=== PATIENT | female | born 1975 | race Caucasian/White ===

== ENCOUNTER 2021-05-09 10:59 | Outpatient (REF) | payer OTHER, SELFPAY ==
--- NOTE | ~2021-05-09 | MM_ITS ---
EXAMINATION: MM SCREENING DIGITAL BREAST TOMOSYNTHESIS, BILATERAL CLINICAL INFORMATION: Screening. Asymptomatic. The lifetime risk of breast cancer based on the Tyrer-Cuzick Model is 18%. COMPARISON: Mammography: 05/07/2020, 01/24/2018; outside mammography 03/30/2017 ([facility]) TECHNIQUE: Digital breast tomosynthesis is performed in both the craniocaudal and mediolateral oblique views along with computer-aided detection (CAD). Synthesized 2D images are generated from the tomosynthesis. FINDINGS: There are scattered areas of fibroglandular density (ACR BI-RADS breast composition Category b). There are no significant masses, abnormal calcifications, or other abnormalities. Parenchymal pattern is similar to prior studies. No developing density. No significant changes. MM/MM tomosynthesis screening BI IMPRESSION: No mammographic evidence of malignancy. ASSESSMENT: BI-RADS 1: Negative RECOMMENDATION: Routine annual mammography screening. This patient's information was entered into a reminder system with a target due date for their next mammogram.
== END 2021-05-09 11:00 | disposition home or self-care (01) ==
LOC: HO.MAMMO 10:59
PROVIDERS: Visit Provider Internal Medicine
DX: Z12.31 Encounter for screening mammogram for malignant neoplasm of breast (principal)
CPT/HCPCS: 77063; 77067

== ENCOUNTER → 2021-12-19 10:04 | Outpatient (BNVA) | payer OTHER, SELFPAY | PROVIDERS: PCP Internal Medicine; Visit Provider Obstetrics & Gynecology | DX: Z01.419 Encounter for gynecological examination (general) (routine) without abnormal findings (principal) ==

== ENCOUNTER 2022-05-11 10:22 | Outpatient (REF) | payer OTHER, SELFPAY ==
--- NOTE | ~2022-05-11 | MM_ITS ---
EXAMINATION: MM SCREENING DIGITAL BREAST TOMOSYNTHESIS, BILATERAL CLINICAL INFORMATION: Screening. Asymptomatic. The lifetime risk of breast cancer based on the Tyrer-Cuzick Model is 11%. COMPARISON: Mammography: 05/09/2021, 05/07/2020, 01/24/2018 TECHNIQUE: Digital breast tomosynthesis is performed in both the craniocaudal and mediolateral oblique views along with computer-aided detection (CAD). Synthesized 2D images are generated from the tomosynthesis. FINDINGS: There are scattered areas of fibroglandular density (ACR BI-RADS breast composition Category b). Background fibroglandular and stromal markings are similar to prior studies. There is no interval mass or architectural abnormality or developing density. No abnormal calcifications. The axilla and skin contours are unremarkable. No significant changes. MM/MM tomosynthesis screening BI IMPRESSION: No mammographic evidence of malignancy. ASSESSMENT: BI-RADS 1: Negative RECOMMENDATION: Routine annual mammography screening. This patient's information was entered into a reminder system with a target due date for their next mammogram.
== END 2022-05-11 10:23 | disposition home or self-care (01) ==
LOC: HO.MAMMO 10:22
PROVIDERS: PCP Internal Medicine; Visit Provider Internal Medicine
DX: Z12.31 Encounter for screening mammogram for malignant neoplasm of breast (principal)
CPT/HCPCS: 77063; 77067

== ENCOUNTER → 2022-07-17 10:08 | Outpatient (BNVA) | payer OTHER, SELFPAY | PROVIDERS: PCP Internal Medicine; Visit Provider Physician Assistant | DX: Z12.11 Encounter for screening for malignant neoplasm of colon (principal) | CPT/HCPCS: 99202; 99212 ==

== ENCOUNTER 2023-04-30 10:15 | Day surgery (SDC) | payer MEDICARE, MEDICAID, SELFPAY ==
--- NOTE | 2023-01-11 08:52 | P.CONAN_ITS ---
HPI - Anesthesia Eval Consult details Narrative: 47yo F for Colonoscopy PMFSH Active Problems Active Problems: All Active Problems (Updated 01/09/23 @ 13:23 by Zina Perez, RN) Well woman exam (Acute) Encounter for screening colonoscopy (Acute) Past Medical History Medical History (Updated 01/09/23 @ 13:23 by Zina Perez, RN) Asthma Depression HTN (hypertension) Family History Family History Mother Diverticulitis large intestine HTN (hypertension) Diabetes Father HTN (hypertension) Heart disease Surgical History Surgical History History of esophagogastroduodenoscopy (EGD) History of tubal ligation Hx of section [place] teeth removed Social History Social History (Updated 07/17/22 @ 10:19 by Lorie Serrano) Household Members: Spouse and Children Alcohol intake: never Patient Tobacco Use Status: Never used Tobacco Meds Allergies Allergy/AdvReac Type Severity Reaction Status Date / Time No Known Allergies Allergy Verified 01/09/23 13:21 Home Medications Medication Instructions Recorded Confirmed Last Taken Type citalopram 10 mg tablet 10 mg PO DAILY 12/19/21 01/09/23 Unknown History clotrimazole-betamethasone 1 1 appl topical BID 12/19/21 01/09/23 Unknown History %-0.05 % topical cream metoprolol tartrate 75 mg tablet 75 mg PO DAILY 12/19/21 01/09/23 Unknown History naproxen 375 mg tablet 375 mg PO BID PRN Pain 12/19/21 01/09/23 Unknown History albuterol sulfate 90 mcg/actuation inhalation 07/17/22 07/17/22 Unknown History aerosol inhaler (ProAir HFA) fluoxetine 20 mg capsule 60 mg PO DAILY 07/17/22 01/09/23 Unknown History ibuprofen 600 mg tablet 600 mg PO TID 07/17/22 01/09/23 Unknown History losartan 50 mg tablet 50 mg PO DAILY 07/17/22 01/09/23 Unknown History mometasone-formoterol HFA 200 2 puff inhalation BID 07/17/22 01/09/23 Unknown History mcg-5 mcg/actuation aerosol inhaler (Dulera) sumatriptan succinate 100 mg tablet 100 mg PO DAILY PRN Headache 07/17/22 01/09/23 Unknown History trazodone 150 mg tablet 150 - 300 mg PO BEDTIME PRN Sleep 07/17/22 01/09/23 Unknown History benztropine 0.5 mg tablet 0.5 mg PO BID 01/09/23 01/09/23 Unknown History desvenlafaxine succinate 100 mg 200 mg PO DAILY 01/09/23 01/09/23 Unknown History tablet,extended release 24 hr gabapentin 600 mg tablet 600 mg PO TID 01/09/23 01/09/23 Unknown History rizatriptan 10 mg tablet 10 mg PO QD-BID migraine 01/09/23 01/09/23 Unknown History Exam Exam Date and Time: January 11, 2023 5319 Assessment and Plan Assessment Anesthesia Assessment: Chart Reviewed
[2023-04-26 11:32] VITALS: BMI 38.8
--- NOTE | 2023-04-30 09:43 | P.CONAN_ITS ---
FORMERLY [facility] Active Problems Active Problems: All Active Problems (Updated 04/26/23 @ 11:28 by Kathleen Yip RN) Well woman exam (Acute) Encounter for screening colonoscopy (Acute) Past Medical History Medical History Anemia Anxiety Asthma Carpal tunnel syndrome of right wrist Cough Depression HTN (hypertension) Menorrhagia Obesity, Class II, BMI 35-39.9, isolated Post-nasal drip Sleep apnea Tendonitis Uterine fibroid Family History Family History Mother Diverticulitis large intestine HTN (hypertension) Diabetes Father HTN (hypertension) Heart disease Family history of problems with anesthesia: No Surgical History Surgical History History of esophagogastroduodenoscopy (EGD) History of tubal ligation Hx of section [place] teeth removed History of Problems with Anesthesia: No Social History Social History (Updated 07/17/22 @ 10:19 by Lorie Serrano) Household Members: Spouse and Children Alcohol intake: never Patient Tobacco Use Status: Never used Tobacco Are you DNR?: No Advance Directives: No Advance Directives Information Provided: Yes Meds Allergies Allergy/AdvReac Type Severity Reaction Status Date / Time Influenza Virus Vaccines AdvReac Wheezing Verified 04/30/23 11:04 Home Medications Medication Instructions Recorded Confirmed Last Taken Type citalopram 10 mg tablet 10 mg PO DAILY 12/19/21 01/09/23 Unknown History clotrimazole-betamethasone 1 1 appl topical BID 12/19/21 01/09/23 Unknown History %-0.05 % topical cream metoprolol tartrate 75 mg tablet 75 mg PO DAILY 12/19/21 01/09/23 Unknown History naproxen 375 mg tablet 375 mg PO BID PRN Pain 12/19/21 01/09/23 Unknown History albuterol sulfate 90 mcg/actuation inhalation 07/17/22 07/17/22 Unknown History aerosol inhaler (ProAir HFA) fluoxetine 20 mg capsule 60 mg PO DAILY 07/17/22 01/09/23 Unknown History ibuprofen 600 mg tablet 600 mg PO TID 07/17/22 01/09/23 Unknown History losartan 50 mg tablet 50 mg PO DAILY 07/17/22 01/09/23 Unknown History mometasone-formoterol HFA 200 2 puff inhalation BID 07/17/22 01/09/23 Unknown History mcg-5 mcg/actuation aerosol inhaler (Dulera) sumatriptan succinate 100 mg tablet 100 mg PO DAILY PRN Headache 07/17/22 01/09/23 Unknown History trazodone 150 mg tablet 150 - 300 mg PO BEDTIME PRN Sleep 07/17/22 01/09/23 Unknown History benztropine 0.5 mg tablet 0.5 mg PO BID 01/09/23 01/09/23 Unknown History desvenlafaxine succinate 100 mg 200 mg PO DAILY 01/09/23 01/09/23 Unknown History tablet,extended release 24 hr gabapentin 600 mg tablet 600 mg PO TID 01/09/23 01/09/23 Unknown History rizatriptan 10 mg tablet 10 mg PO QD-BID migraine 01/09/23 01/09/23 Unknown History azelastine 137 mcg (0.1 %) nasal 2 spray intranasal BID 04/27/23 04/27/23 Unknown History spray aerosol ferrous sulfate 325 mg (65 mg 325 mg PO TID 04/27/23 04/27/23 Unknown History iron) tablet ipratropium bromide 21 mcg (0.03 2 spray intranasal BID 04/27/23 04/27/23 Unknown History %) nasal spray mometasone-formoterol HFA 200 2 puff inhalation BID 04/27/23 04/27/23 Unknown History mcg-5 mcg/actuation aerosol inhaler (Dulera) olanzapine 20 mg tablet 20 mg PO DAILY 04/27/23 04/27/23 Unknown History trazodone 150 mg tablet 150 mg PO BEDTIME 04/27/23 04/27/23 Unknown History Exam Exam Date and Time: April 30, 2023 0943 Height,Weight and Vital Signs: Height 5 ft 4 in Weight 102.512 kg Airway Mallampati Class: II TM Dist: >3cm Neck ROM: Full Heart: rrr Lungs: cta Assessment and Plan Assessment Anesthesia Assessment: Anesthesia Plan Discussed and Chart Reviewed Final Anesthetic Review Family History of Problems with Anesthesia: No History of Problems with Anesthesia: No NPO: Yes ASA Class: II Final Preanesthetic Review: No Changes in Pt Med Stat, Meds/Allgs Chart Reviewed and Consent Obtained/Reviewed Patient Risk: Intermediate Procedure Risk: Intermediate Anesthetic Plan Anesthetic Plan: MAC: Disposition: Standard PACU
--- NOTE | 2023-04-30 11:04 | PC.NURSE ---
report given to margarito milan rn at this time.
--- NOTE | 2023-04-30 11:21 | P.HPSUR_ITS ---
Pre-Procedural Eval Section A Date of Service: 04/30/23 The patient is an INPATIENT: No The History & Physical has been completed within 30 days and I have reviewed it.: No Section B Chief Complaint: screening Relevant Family History (Specify if Yes): No Relevant Social History: None Present Medications: see Short Stay Collaborative assessment Medical History: Significant History (Depression HTN (hypertension)) History of Previous Operations: Relevant previous surgery/procedure and date(s) (History of esophagogastroduodenoscopy (EGD) History of tubal ligation Hx of section [place] teeth removed) Allergies: Allergies Allergy/AdvReac Type Severity Reaction Status Date / Time Influenza Virus Vaccines AdvReac Wheezing Verified 04/30/23 11:04 Review of Systems Sugical H&P ROS: Negative: Constitution, Cardiovascular, Respiratory and Gastrointestinal Exam Surgical H&P Exam: Normal: Heart, Normal: Lungs, Normal: Extremities and Normal: Abdomen Plan Diagnosis/Plan: Unchanged I have reviewed the history and physical and performed a pertinent physical examination on my patient. No changes have occurred unless specified. Time Spent With Patient Time: Total time managing care of this patient today ____ minutes.
[2023-04-30 11:45] VITALS: BP 141/90; PULSE 74; RESP 16; TEMP 36.4; O2SAT 98; BMI 38.6
--- NOTE | 2023-04-30 12:11 | W.PM.OPN ---
Operative Note Operative Note Date of Service: 04/30/23 Narrative: COLONOSCOPY TILL CECUM WITH BIOPSIES Pre-op diagnosis: colon cancer screening Post-op diagnosis:? colon polyp, diverticulosis hemorrhoids Endoscopist:? Adriana Sanchez MD Anesthesia:?MAC Consent: Indications for the procedure and potential complications of bleeding, perforation, reaction to medications and missed diagnosis were discussed with the patient and informed consent was obtained. Instrument: Olympus PCF H 190 L variable stiffness pediatric colonoscope Monitoring: Vital signs and clinical assessment, intermittent blood pressure monitoring, continuous EKG monitoring, Pulse oximetry and Carbon Dioxide monitoring were done throughout the procedure. Please see anesthesia flowsheet. Colon withdrawl time was 28 minutes. Procedure: The patient was placed in the left lateral decubitis position and pre-procedure medications were administered. After a digital rectal examination of the ano-rectum, the video colonoscope was inserted into the rectum and advanced through the colon to the cecum. The colonoscope was slowly withdrawn in a retrograde panoramic fashion and the colon mucosa was carefully examined including a retroflexed view of the rectum. Findings and interventions are described below. Procedure Difficulty: colon was long and tortuous and there was some loop formation Findings: Terminal Ileum: Not evaluated Cecum: Normal Ascending Colon: Normal Transverse Colon: Normal Descending Colon: Normal Sigmoid Colon: Moderate diverticulosis Rectum: A 6-7 mm diminutive appearing polyp - removed with a cold biopsy Ano-rectum: Moderate internal hemorrhoids Colon preparation: Fair to poor despite copious irrigation Impression and Post Procedure Diagnosis: Colonoscopy Findings: One diminutive appearing polyp removed Moderate diverticulosis seen in the sigmoid colon Moderate hemorrhoids on retroflexed exam. Fair to poor despite copious irrigation Plan: Patient has an appointment on 05/17/23 in the GI Clinic with ALESSIA Quinn. Repeat Colonoscopy in 1 year due to suboptimal prep. (with 2 day prep or give Bisacodyl 2-3 tablets daily starting 5 days before colonoscopy appointment). Above findings were reviewed with the patient and colon polyps and diverticulosis handouts were given in the discharge area
[2023-04-30 13:03] VITALS: BP 127/85; PULSE 79; RESP 16; TEMP 36.2; O2SAT 97
--- NOTE | 2023-04-30 13:08 | P.CONAN_ITS ---
FORMERLY [facility], [facility]–1983 Active Problems Active Problems: All Active Problems (Updated 04/26/23 @ 11:28 by Kathleen Yip RN) Well woman exam (Acute) Encounter for screening colonoscopy (Acute) Past Medical History Medical History Anemia Anxiety Asthma Carpal tunnel syndrome of right wrist Cough Depression HTN (hypertension) Menorrhagia Obesity, Class II, BMI 35-39.9, isolated Post-nasal drip Sleep apnea Tendonitis Uterine fibroid Family History Family History Mother Diverticulitis large intestine HTN (hypertension) Diabetes Father HTN (hypertension) Heart disease Family history of problems with anesthesia: No Surgical History Surgical History History of esophagogastroduodenoscopy (EGD) History of tubal ligation Hx of section [place] teeth removed History of Problems with Anesthesia: No Social History Social History (Updated 07/17/22 @ 10:19 by Lorie Serrano) Household Members: Spouse and Children Alcohol intake: never Patient Tobacco Use Status: Never used Tobacco Meds Allergies Allergy/AdvReac Type Severity Reaction Status Date / Time Influenza Virus Vaccines AdvReac Wheezing Verified 04/30/23 11:04 Home Medications Medication Instructions Recorded Confirmed Last Taken Type citalopram 10 mg tablet 10 mg PO DAILY 12/19/21 01/09/23 Unknown History clotrimazole-betamethasone 1 1 appl topical BID 12/19/21 01/09/23 Unknown History %-0.05 % topical cream metoprolol tartrate 75 mg tablet 75 mg PO DAILY 12/19/21 01/09/23 Unknown History naproxen 375 mg tablet 375 mg PO BID PRN Pain 12/19/21 01/09/23 Unknown History albuterol sulfate 90 mcg/actuation inhalation 07/17/22 07/17/22 Unknown History aerosol inhaler (ProAir HFA) fluoxetine 20 mg capsule 60 mg PO DAILY 07/17/22 01/09/23 Unknown History ibuprofen 600 mg tablet 600 mg PO TID 07/17/22 01/09/23 Unknown History losartan 50 mg tablet 50 mg PO DAILY 07/17/22 01/09/23 Unknown History mometasone-formoterol HFA 200 2 puff inhalation BID 07/17/22 01/09/23 Unknown H istory mcg-5 mcg/actuation aerosol inhaler (Dulera) sumatriptan succinate 100 mg tablet 100 mg PO DAILY PRN Headache 07/17/22 01/09/23 Unknown History trazodone 150 mg tablet 150 - 300 mg PO BEDTIME PRN Sleep 07/17/22 01/09/23 Unknown History benztropine 0.5 mg tablet 0.5 mg PO BID 01/09/23 01/09/23 Unknown History desvenlafaxine succinate 100 mg 200 mg PO DAILY 01/09/23 01/09/23 Unknown History tablet,extended release 24 hr gabapentin 600 mg tablet 600 mg PO TID 01/09/23 01/09/23 Unknown History rizatriptan 10 mg tablet 10 mg PO QD-BID migraine 01/09/23 01/09/23 Unknown History azelastine 137 mcg (0.1 %) nasal 2 spray intranasal BID 04/27/23 04/27/23 Unknown History spray aerosol ferrous sulfate 325 mg (65 mg 325 mg PO TID 04/27/23 04/27/23 Unknown History iron) tablet ipratropium bromide 21 mcg (0.03 2 spray intranasal BID 04/27/23 04/27/23 Unknown History %) nasal spray mometasone-formoterol HFA 200 2 puff inhalation BID 04/27/23 04/27/23 Unknown History mcg-5 mcg/actuation aerosol inhaler (Dulera) olanzapine 20 mg tablet 20 mg PO DAILY 04/27/23 04/27/23 Unknown History trazodone 150 mg tablet 150 mg PO BEDTIME 04/27/23 04/27/23 Unknown History Exam Exam Date and Time: April 30, 2023 1308 Height,Weight and Vital Signs: Height 5 ft 4 in Weight 102.058 kg Last Vital Signs Temp 97.6 F 04/30/23 11:45 Pulse 74 04/30/23 11:45 Resp 16 04/30/23 11:45 BP 141/90 H 04/30/23 11:45 Pulse Ox 98 04/30/23 11:45 O2 Del Method Room Air 04/30/23 11:45 Airway Mallampati Class: II TM Dist: >3cm Neck ROM: Full Heart: rrr Lungs: cta Assessment and Plan Assessment Anesthesia Assessment: Anesthesia Plan Discussed and Chart Reviewed Final Anesthetic Review Family History of Problems with Anesthesia: No History of Problems with Anesthesia: No ASA Class: III Final Preanesthetic Review: No Changes in Pt Med Stat, Meds/Allgs Chart Reviewed and Consent Obtained/Reviewed Patient Risk: Intermediate Procedure Risk: Intermediate Anesthetic Plan Anesthetic Plan: MAC: Disposition: Standard PACU
[2023-04-30 13:18] VITALS: BP 150/102; PULSE 79; RESP 16; TEMP 36.1; O2SAT 97
== END 2023-04-30 13:46 | disposition home or self-care (01) ==
PROVIDERS: PCP Physician Assistant; Visit Provider Internal Medicine Gastroenterology
PROC: 0DJD8ZZ Inspection of Lower Intestinal Tract, Via Natural or Artificial Opening Endoscopic (ICD-10-PCS; CPT 45378; principal; 2023-04-30 11:50)
DX: Z12.11 Encounter for screening for malignant neoplasm of colon (principal); K62.1 Rectal polyp; K57.30 Diverticulosis of large intestine without perforation or abscess without bleeding; K64.8 Other hemorrhoids; I10 Essential (primary) hypertension; D64.9 Anemia, unspecified; J45.909 Unspecified asthma, uncomplicated; G47.30 Sleep apnea, unspecified; E66.9 Obesity, unspecified; Z68.38 Body mass index [BMI] 38.0-38.9, adult; Z98.51 Tubal ligation status; Z79.899 Other long term (current) drug therapy
CPT/HCPCS: 45380; 88305

== ENCOUNTER → 2023-04-30 10:15 | Outpatient (BNV) | payer MEDICARE, MEDICAID, SELFPAY | PROVIDERS: PCP Physician Assistant; Visit Provider Internal Medicine Gastroenterology | DX: Z12.11 Encounter for screening for malignant neoplasm of colon (principal); K57.30 Diverticulosis of large intestine without perforation or abscess without bleeding; K64.8 Other hemorrhoids; D12.8 Benign neoplasm of rectum | CPT/HCPCS: 45380 ==

== ENCOUNTER 2023-05-17 09:37 | Outpatient (AMB) | payer MEDICARE, MEDICAID, SELFPAY ==
[2023-05-17 09:43] VITALS: BP 136/88; PULSE 73; BMI 39.0
--- NOTE | 2023-05-17 09:43 | A.OFFVIS_ITS ---
Intake Vital Signs 05/17/23 09:43 Height 5 ft 4 in Weight 227 lb 1.218 oz BMI 39.0 BP 136/88 Blood Pressure Location Lt brachial Position Sitting Pulse 73 Intake Visit Reasons: S/P Ringling; Dr. 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 Language: Setswana Accompanied by: Self / Same As Patient Allergies Influenza Virus Vaccines Adverse Reaction (Verified 05/17/23 09:44) Wheezing Medication List - Last Reconciled 05/17/23 by Brittany Barrios PA-C albuterol sulfate 90 mcg/actuation (ProAir HFA) inhalation azelastine 2 sprays intranasal BID benztropine 0.5 mg PO BID citalopram 10 mg PO DAILY clotrimazole-betamethasone 1-0.05 % 1 appl topical BID desvenlafaxine succinate ER 200 mg PO DAILY fluoxetine 60 mg PO DAILY gabapentin 600 mg PO TID ibuprofen 600 mg PO TID ipratropium bromide 2 sprays intranasal BID losartan 50 mg PO DAILY metoprolol tartrate 75 mg PO DAILY mometasone-formoterol 200-5 mcg/actuation (Dulera) 2 puffs inhalation BID mometasone-formoterol 200-5 mcg/actuation (Dulera) 2 puffs inhalation BID naproxen 375 mg PO BID PRN olanzapine 20 mg PO DAILY rizatriptan 10 mg PO QD-BID sumatriptan succinate 100 mg PO DAILY PRN trazodone 150 mg PO BEDTIME trazodone 150 - 300 mg PO BEDTIME PRN HPI HPI Comments History of Present Illness Details A 48-year-old female follows up after recent index screening colonoscopy with polypectomy-she tolerated procedure well. She complains of chronic constipation she is taking a powder does not seem to be working well. She does have abdominal bloating and gassy, her prep for colonoscopy was not adequate. She does have discomfort from hemorrhoids from time to time and there is no bleeding We reviewed procedure report, pathology as well as recommendations. She has no nausea, vomiting hematemesis, hematochezia fever chills [facility] Medical History Obesity, Class II, BMI 35-39.9, isolated Uterine fibroid Tendonitis Post-nasal drip Menorrhagia Carpal tunnel syndrome of right wrist Anxiety Anemia Cough Sleep apnea Asthma HTN (hypertension) Depression Surgical History Hx of colonoscopy History of esophagogastroduodenoscopy (EGD) [place] teeth removed Hx of section History of tubal ligation Family History Mother Diverticulitis large intestine HTN (hypertension) Diabetes Father HTN (hypertension) Heart disease Social History Household Members: Spouse and Children Alcohol intake: never Patient Tobacco Use Status: Never used Tobacco Review of Systems Const All systems reviewed & are unremarkable except as noted in HPI and below Card Denies chest pain and Denies dyspnea Resp Denies dyspnea GI Denies abdominal pain, Denies hematochezia, Reports constipation and Denies heartburn Physical Exam Vital Signs: Last Vital Signs Pulse 73 05/17/23 09:43 BP 136/88 05/17/23 09:43 BMI result Body Mass Index 39.0 Const General: cooperative, healthy appearing, comfortable and well groomed Orientation/consciousness: patient oriented x3 Limitations: language barrier Neuro General: patient oriented x3 Extrem General: Yes full ROM Psych Appearance: grossly normal and well kempt Mental Status: mental status grossly normal Speech and movement: Normal speech and movement present and Clear speech present Affect: normal affect Attitude: cooperative Thought process: Normal thought process present Results Reviewed Results Reviewed: Impression and Post Procedure Diagnosis: Colonoscopy Findings: One diminutive appearing polyp removed Moderate diverticulosis seen in the sigmoid colon Moderate hemorrhoids on retroflexed exam. Fair to poor despite copious irrigation Plan: Patient has an appointment on 05/17/23 in the GI Clinic with ALESSIA Quinn. Repeat Colonoscopy in 1 year due to suboptimal prep. (with 2 day prep or give Bisacodyl 2-3 tablets daily starting 5 days before colonoscopy appointment). Above findings were reviewed with the patient and colon polyps and diverticulosis handouts were given in the discharge area You should undergo a colonoscopy again in 1 years since colon was not well cleaned out on recent colonoscopy. Assessment & Plan Assessment & Plan (1) Chronic constipation: Comment: Index screening colonoscopy, inadequate prep-will need repeat 1 year Consistent bowel regimen Code(s): K59.09 - Other constipation Plan: Consistent bowel regimen HFD (2) Diverticulosis: Code(s): K57.90 - Diverticulosis of intestine, part unspecified, without perforation or abscess without bleeding Plan: Diverticulosis/diverticulitis ED protocol Maintain high-fiber diet (3) Hemorrhoids: Comment: Moderate hemorrhoids Code(s): K64.9 - Unspecified hemorrhoids Plan: HFD avoid strain rectal cream surgical consult- declines Plan Repeat Colonoscopy in 1 year due to suboptimal prep. (with 2 day prep or give Bisacodyl 2-3 tablets daily starting 5 days before colonoscopy appointment). Medications: New methylcellulose (laxative) (Citrucel) 500 mg PO TID 90 tabs 5RF 30 days docusate sodium (Colace) 200 mg (2 x 100 mg) PO BEDTIME 60 caps 5RF bisacodyl (Dulcolax (bisacodyl)) 10 mg DC DAILY PRN 20 ea 2RF constipation polyethylene glycol 3350 (Miralax) Take as directed by mouth the day before your procedure. 238 grams PO ONCE PRN 238 grams 0RF laxative effect 1 day Patient Instructions: Repeat Colonoscopy in 1 year due to suboptimal prep. (with 2 day prep or give Bisacodyl 2-3 tablets daily starting 5 days before colonoscopy appointment). Diverticulosis/diverticulitis ER protocol discussed Maintain high-fiber diet literature given Rectal cream for hemorrhoids, avoid straining-offered referral for hemorrhoid consult at this time she has declined Consistent bowel regimen Colace 200 mg MiraLax 17 mg q.h.s. daily fiber supplements-she may use suppository as needed. 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
== END 2023-05-17 10:24 | disposition home or self-care (01) ==
PROVIDERS: PCP Physician Assistant; Visit Provider Physician Assistant
DX: K59.09 Other constipation (principal); K57.90 Diverticulosis of intestine, part unspecified, without perforation or abscess without bleeding; K64.9 Unspecified hemorrhoids
CPT/HCPCS: 99213

== ENCOUNTER 2023-05-17 10:14 | Outpatient (REF) | payer MEDICARE, MEDICAID, SELFPAY ==
--- NOTE | ~2023-05-17 | MM_ITS ---
EXAMINATION: MM SCREENING DIGITAL BREAST TOMOSYNTHESIS, BILATERAL CLINICAL INFORMATION: Screening. Asymptomatic. COMPARISON: Mammography: 05/11/2022, 05/09/2021, 05/07/2020, and dating back to 2017. TECHNIQUE: Digital breast tomosynthesis is performed in both the craniocaudal and mediolateral oblique views along with computer-aided detection (CAD). Synthesized 2D images are generated from the tomosynthesis. Additional left MLO was provided. FINDINGS: There are scattered areas of fibroglandular density (ACR BI-RADS breast composition Category b). There are no suspicious masses, suspicious grouped calcifications, or areas of architectural distortion. The parenchymal pattern is stable from prior exams. No skin changes. MM/MM tomosynthesis screening BI IMPRESSION: No mammographic evidence of malignancy. ASSESSMENT: BI-RADS BI-RADS 1 - Negative RECOMMENDATION: Routine annual mammography screening. 1 year F/U This examination should not preclude the clinical evaluation of a suspicious palpable abnormality. This patient's information was entered into a reminder system with a target due date for their next mammogram.
== END 2023-05-17 10:15 | disposition home or self-care (01) ==
LOC: HO.MAMMO 10:14
PROVIDERS: PCP Internal Medicine; Visit Provider Internal Medicine
DX: Z12.31 Encounter for screening mammogram for malignant neoplasm of breast (principal)
CPT/HCPCS: 77063; 77067; 99212

== ENCOUNTER → 2023-05-17 10:20 | Outpatient (BNV) | payer MEDICARE, MEDICAID, SELFPAY | PROVIDERS: PCP Internal Medicine; Visit Provider Radiology Diagnostic Radiology | DX: Z12.31 Encounter for screening mammogram for malignant neoplasm of breast (principal) | CPT/HCPCS: 77063; 77067 ==

== ENCOUNTER 2023-06-06 10:00 | Outpatient (AMB) | payer MEDICARE, MEDICAID, SELFPAY ==
[2023-06-06 10:03] VITALS: BP 132/80; BMI 39.3
--- NOTE | 2023-06-06 10:03 | MHC.OFFVIS ---
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 No complaints. Last Pap/HPV was negative in 01/25 Last Mammogram was BI-RADS 1 in 06/02 Last colonoscopy was in 05/02, the recommendation was to repeat in 1 year [facility] Medical History Obesity, Class II, BMI 35-39.9, isolated Uterine fibroid Tendonitis Post-nasal drip Menorrhagia Carpal tunnel syndrome of right wrist Anxiety Anemia Cough Sleep apnea Asthma HTN (hypertension) Depression Surgical History Hx of colonoscopy History of esophagogastroduodenoscopy (EGD) [place] teeth removed Hx of section History of tubal ligation Family History Mother Diverticulitis large intestine HTN (hypertension) Diabetes Father HTN (hypertension) Heart disease Social History Household Members: Spouse and Children Alcohol intake: never Patient Tobacco Use Status: Never used Tobacco Female Reproductive History Menstrual Age of Menarche: 10 control method: permanent sterilization Total pregnancies: 2 Full term: 2 Number of Living Children: 2 Date of last pap smear: 01/08/18 (negative) Date of Mammogram: 05/17/23 Review of Systems Const All systems reviewed & are unremarkable except as noted in HPI and below Card Reports as per HPI Resp Reports as per HPI GI Reports as per HPI and Reports no additional complaints Reports as per HPI Physical Exam Vital Signs: Last Vital Signs BP 132/80 06/06/23 10:03 BMI result Body Mass Index 39.3 Const General: cooperative, healthy appearing and comfortable Chest Chest palpation & inspection: normal inspection of the chest and normal palpation of entire chest wall Breast/axilla inspection: normal inspection of the breasts and normal inspection of the axillae Breast/axilla palpation: normal palpation of the breasts, normal palpation of the axillae and no axillary lymphadenopathy Resp Effort & Inspection: normal respiratory effort Auscultation: clear to auscultation bilaterally Percussion: percussion normal Cardio Palpation: normal PMI Rate: regular rate Rhythm: regular rhythm Heart sounds: no murmurs and no rubs Peripheral pulses: Peripheral pulses 2+ throughout GI Inspection: Yes normal to inspection Palpation (GI): Soft to palpation, nontender, no guarding, not rigid and No hepatosplenomegaly present Percussion: Yes normal to percussion Auscultation: normal bowel sounds Rectal Exam - Female: deferred General: Yes bladder normal to palpation External Female Exam: No lesion Speculum Exam - Vagina: normal appearance of the vagina, normal palpation, normal vaginal discharge and not erythematous Speculum Exam - Cervix: normal appearance of the cervix and normal palpation Bimanual exam- vagina & uterus: normal bimanual exam, normal palpation, uterine size normal, bladder normal to palpation, consistency normal and normal palpation Bimanual Exam- Adnexa, other: normal adnexae, no masses and no tenderness Assessment & Plan Assessment & Plan (1) Well woman exam: Code(s): Z01.419 - Encounter for gynecological examination (general) (routine) without abnormal findings Plan: Cotesting done. Instructions given to the patient to schedule next year screening Mammogram in 06/03. Counseled the patient about the recommended dietary allowance of 1000 mg of Calcium & 600 IU of vitamin D. The patient was instructed to perform monthly self-breast exams and to schedule an annual exam in a year; The patient scheduled for next screening colonoscopy in 05/03 All questions answered and the patient verbalized understanding. Instructed the patient to schedule annual exam in a year Coding Level of Care Code Est Pt Prev Care 40-64y(55416) Diagnoses Well woman exam Z01.419
== END 2023-06-06 10:26 | disposition home or self-care (01) ==
LOC: HO.HWS 10:00
PROVIDERS: PCP Internal Medicine; Visit Provider Obstetrics & Gynecology
DX: Z01.419 Encounter for gynecological examination (general) (routine) without abnormal findings (principal)
CPT/HCPCS: G0101; Q0091

== ENCOUNTER 2023-06-06 10:00 | Outpatient (REF) | payer MEDICARE, MEDICAID, SELFPAY ==
[2023-06-09 06:39] LABS: HPV mRNA E6/E7 rflx Not Detected (Not Detected)
== END 2023-06-06 10:01 | disposition home or self-care (01) ==
LOC: HO.LNP 10:00
PROVIDERS: PCP Internal Medicine; Visit Provider Obstetrics & Gynecology
DX: Z01.419 Encounter for gynecological examination (general) (routine) without abnormal findings (principal); Z11.51 Encounter for screening for human papillomavirus (HPV)
CPT/HCPCS: 87624; 88142; G0101

== ENCOUNTER 2024-02-20 10:08 | Outpatient (AMB) | payer OTHER, SELFPAY ==
--- NOTE | 2024-02-20 10:17 | MHC.OFFVIS ---
Intake Visit Reasons: dysuria Intake Note: New Patient presents today for initial visit to establish treatment for : Dysuria Urology Medications: none Allergies to Antibiotic: none Blood Thinner: none PVR: 0ml's Application Performance Engineer Required: Yes Application Performance Engineer Name: KYLE TANGKIARA Accompanied by: Self / Same As Patient Allergies Influenza Virus Vaccines Adverse Reaction (Verified 02/20/24 11:12) Wheezing Medication List - Last Reconciled 02/20/24 by MAYRA Gipson- albuterol sulfate 90 mcg/actuation (ProAir HFA) inhalation azelastine 2 sprays intranasal BID benztropine 0.5 mg PO BID bisacodyl (Dulcolax (bisacodyl)) 10 mg LA DAILY PRN citalopram 10 mg PO DAILY clotrimazole-betamethasone 1-0.05 % 1 appl topical BID desvenlafaxine succinate ER 200 mg PO DAILY docusate sodium (Colace) 200 mg (2 x 100 mg) PO BEDTIME estradiol 0.01%(0.1mg/gram) pea sized amount to urethra 3 times a week 30 days fluoxetine 60 mg PO DAILY gabapentin 600 mg PO TID ibuprofen 600 mg PO TID ipratropium bromide 2 sprays intranasal BID losartan 50 mg PO DAILY methylcellulose (laxative) (Citrucel) 500 mg PO TID 30 days metoprolol tartrate 75 mg PO DAILY mometasone-formoterol 200-5 mcg/actuation (Dulera) 2 puffs inhalation BID mometasone-formoterol 200-5 mcg/actuation (Dulera) 2 puffs inhalation BID naproxen 375 mg PO BID PRN olanzapine 20 mg PO DAILY polyethylene glycol 3350 (Miralax) 238 grams PO ONCE PRN 1 day rizatriptan 10 mg PO QD-BID sumatriptan succinate 100 mg PO DAILY PRN trazodone 150 mg PO BEDTIME trazodone 150 - 300 mg PO BEDTIME PRN HPI Comments Details: Gia is a very pleasant 48-year-old Slovak-speaking female patient of Dr. Romero. She has a past medical history of obesity, uterine fibroid, menorrhagia status post hysterectomy 2 years ago, carpal tunnel, anxiety, sleep apnea, asthma, hypertension, and depression. She presents to the office today as a new patient for dysuria and stress incontinence. In discussion with the patient today she reports symptoms have been present for many months. She discusses having had a hysterectomy 2 years ago for abnormal bleeding with episodes of anemia. She discusses also noting lower abdominal pressure greater on the left side than the right. She is unsure if this is related to her bladder or a sprigger issue given her history of a hysterectomy. She otherwise denies hematuria, foul smelling urine, changes to urinary stream, flank pain, fever, and or chills. In office urinalysis results reviewed with the patient today negative leukocytes negative nitrates negative microscopic hematuria. PVR 0 mL. Discussed at length potential causes for lower urinary tract symptoms patient is experiencing. Discussed obtaining retroperitoneal ultrasound for further assessment evaluation. She otherwise offers no other issues or concerns at this time. [facility] Medical History Obesity, Class II, BMI 35-39.9, isolated Uterine fibroid Tendonitis Post-nasal drip Menorrhagia Carpal tunnel syndrome of right wrist Anxiety Anemia Cough Sleep apnea Asthma HTN (hypertension) Depression Surgical History Hx of colonoscopy History of esophagogastroduodenoscopy (EGD) [place] teeth removed Hx of section History of tubal ligation Family History Mother Diverticulitis large intestine HTN (hypertension) Diabetes Father HTN (hypertension) Heart disease Social History Household Members: Spouse and Children Alcohol intake: never Patient Tobacco Use Status: Never used Tobacco Female Reproductive History Menstrual Age of Menarche: 10 Review of Systems Const Reports no additional complaints Eyes Reports no additional complaints ENT Reports no additional complaints Card Reports as per HPI Resp Reports as per HPI GI Reports no additional complaints Reports as per HPI Musc Reports as per HPI Neuro Reports as per HPI Psych Reports as per HPI Endo Reports no additional complaints Sheng/Lymph Reports no additional complaints Aller/Immun Reports no additional complaints Physical Exam Const General: cooperative, healthy appearing, comfortable, no acute distress, well developed, alert and awake Orientation/consciousness: patient oriented x3 Limitations: no limitations HEENT Head: Yes normal to inspection, Yes normocephalic and Yes atraumatic Ears: hearing grossly normal bilaterally Eyes General: appearance normal, both eyes and all related structures Neck Neck: Yes normal visual inspection and Yes trachea midline Chest Chest palpation & inspection: normal inspection of the chest Resp Effort & Inspection: normal respiratory effort and able to speak in complete sentences Cardio Rate: regular rate GI Inspection: Yes normal to inspection General: Yes no CVA tenderness Back/Spine/Pelvis Back: no CVA tenderness Skin General skin exam: no rashes or lesions noted Neuro General: patient oriented x3 Extrem General: Yes normal to inspection Psych Appearance: grossly normal and well kempt Mental Status: mental status grossly normal Speech and movement: Normal speech and movement present and Clear speech present Affect: normal affect Attitude: cooperative Thought process: Normal thought process present Thought content: Normal thought content present Insight: Fair insight present (Psych) Judgement: Fair judgement present (Psych) Office Procedures Post Void Residual Post Residual Void Post Void Residual (PVR): 0 [id number] Void Residual by ultrasound Results AMB Urinalysis, Automated UA Leukoctes 0 Ryan/uL Last Edit by [employer] on 02/20/24 10:42 UA Nitrite Negative Last Edit by [employer] on 02/20/24 10:42 UA Urobilinogen 0.2 mg/dL Last Edit by [employer] on 02/20/24 10:42 UA Protein 0 mg/dL Last Edit by [employer] on 02/20/24 10:42 UA pH 6.5 Last Edit by [employer] on 02/20/24 10:42 UA Blood 0 Reymundo/uL Last Edit by [employer] on 02/20/24 10:42 UA Specific [place] 1.010 Last Edit by [employer] on 02/20/24 10:42 UA Ketone Negative Last Edit by [employer] on 02/20/24 10:42 UA Bilirubin 0 mg/dL Last Edit by [employer] on 02/20/24 10:42 UA Glucose 0 mg/dL Last Edit by [employer] on 02/20/24 10:42 Results Reviewed Results Reviewed: Laboratory Last Values Urine pH (Auto) 6.5 02/20/24 10:23 Specific [place] (Auto) 1.010 02/20/24 10:23 Urine Protein (Auto) 0 mg/dL 02/20/24 10:23 Glucose (UA)(Auto) 0 mg/dL 02/20/24 10:23 Urine Ketones (Auto) Negative 02/20/24 10:23 Urine Blood (Auto) 0 Reymundo/uL 02/20/24 10:23 Urine Nitrite (Auto) Negative 02/20/24 10:23 Urine Bilirubin (Auto) 0 mg/dL 02/20/24 10:23 Urine Urobilinogen (Auto) 0.2 mg/dL 02/20/24 10:23 Leukocyte Esterase (Auto) 0 Ryan/uL 02/20/24 10:23 Assessment & Plan Assessment & Plan (1) Stress incontinence: Code(s): N39.3 - Stress incontinence (female) (male) Category: Medical (2) Dysuria: Code(s): R30.0 - Dysuria Category: Medical Plan In office urinalysis results reviewed with the patient today; as noted above; will send for urine culture given patient reporting dysuria. Discussed at length potential causes for lower urinary tract symptoms patient is experiencing. PVR 0 mL. Discussed possible near future in office cystoscopy, urodynamics, and or microgen for further assessment evaluation. Will obtain retroperitoneal ultrasound for further assessment evaluation. Discussed bladder triggers/irritants. Start Estrace cream as discussed and prescribed. Discussed pelvic floor therapy. Follow-up in 1-3 months with imaging to be completed prior; or sooner with any issues, concerns, and or questions. Orders: Orders AMB Urinalysis Automated Today Z13.9 - Encounter for screening, unspecified AMB Post Void Residual by ultrasound Today Z13.9 - Encounter for screening, unspecified US retroperitoneal comp Today N39.3 - Stress incontinence (female) (male), R30.0 - Dysuria Medications: New estradiol 0.01%(0.1mg/gram) pea sized amount to urethra 3 times a week 42.5 grams 2RF 30 days Patient Instructions: The patient had an opportunity to ask questions regarding the treatment plan. All questions were answered. Physical exam, labs, and imaging were discussed and reviewed in detail. As well as risks, benefits, and discussion of treatment choices. No major barriers to understanding were identified. The patient expressed understanding and agreement with the above treatment plan. The patient was made aware they should contact our office by phone for worsening of their current condition, the appearance of new symptoms, or with any questions or concerns. Compliance is encouraged with any medications and follow up testing that is ordered. It is a privilege to be allowed the opportunity to participate in? your urological care.? Again, if you have any questions or concerns If you have any questions or concerns please do not hesitate to contact me. The office is [phone]. This note is constructed using voice recognition software. While every effort has been made to ensure accuracy granite countertop installer errors may have been included. Yours sincerely, CASSANDRA Gipson Coding Level of Care Code New Pt Level 4 (10902) Diagnoses Stress incontinence N39.3 Dysuria R30.0 CPT Codes Post Residual Void - PVR CPT Code: 43375-T[place]o Void Residual by ultrasound ([id number])
== END 2024-02-20 10:56 | disposition home or self-care (01) ==
PROVIDERS: PCP Internal Medicine; Visit Provider Nurse Practitioner Family
DX: N39.3 Stress incontinence (female) (male) (principal); R30.0 Dysuria; Z13.9 Encounter for screening, unspecified
CPT/HCPCS: 99204

== ENCOUNTER 2024-02-20 10:08 | Outpatient (REF) | payer OTHER, SELFPAY | END 2024-02-20 10:09 | disposition home or self-care (01) | LOC: HO.LNP 10:08 | PROVIDERS: PCP Internal Medicine; Visit Provider Nurse Practitioner Family | DX: R30.0 Dysuria (principal); N39.3 Stress incontinence (female) (male) | CPT/HCPCS: 51798; 81003; 87086; 99202 ==

== ENCOUNTER 2024-04-21 13:04 | Outpatient (REF) | payer OTHER, SELFPAY ==
--- NOTE | ~2024-04-21 | US_ITS ---
EXAMINATION: US RETROPERITONEAL COMPLETE (RENAL) CLINICAL INFORMATION: Dysuria. COMPARISON: None available. TECHNIQUE: Real-time imaging of the kidneys and bladder. FINDINGS: RIGHT KIDNEY: 11.7 x 4.1 x 6.9 cm (SAG x AP x TRV). The kidney is normal in size, contour, and echogenicity. Renal cortical thickness is normal. No calculi or focal parenchymal lesions. No hydronephrosis. LEFT KIDNEY: 13.9 x 5.1 x 5.7 cm (SAG x AP x TRV). The kidney is normal in size, contour, and echogenicity. Renal cortical thickness is normal. No calculi or focal parenchymal lesions. No hydronephrosis. BLADDER: Well distended and normal. Bilateral ureteral jets are demonstrated. Prevoid bladder volume is 249.2 mL. Postvoid bladder volume is 5.9 mL. US/US retroperitoneal comp IMPRESSION: Normal ultrasound of the bilateral kidneys and urinary bladder. Electronically signed by: Clay Moody MD 05/15/2024 08:35 PM EDT
== END 2024-04-21 13:05 | disposition home or self-care (01) ==
LOC: HO.US 13:04
PROVIDERS: PCP Internal Medicine; Visit Provider Nurse Practitioner Family
DX: R30.0 Dysuria (principal); N39.3 Stress incontinence (female) (male)
CPT/HCPCS: 76770

== ENCOUNTER 2024-05-19 13:03 | Outpatient (REF) | payer OTHER, SELFPAY ==
[2024-05-19 17:18] LABS: Bacterial Vaginosis PCR NEGATIVE (Negative); Candida Group PCR DETECTED (Not Detect); Candida glab krusei PCR NOT DETECTED (Not Detect); Trichomonas vaginalis PCR NOT DETECTED (Not Detect)
[2024-05-19 17:47] LABS: CT PCR NOT DETECTED (Not Detect.); NG PCR NOT DETECTED (Not Detect.)
== END 2024-05-19 13:04 | disposition home or self-care (01) ==
LOC: HO.LNP 13:03
PROVIDERS: PCP Internal Medicine; Visit Provider Obstetrics & Gynecology
DX: N76.0 Acute vaginitis (principal)
CPT/HCPCS: 0352U; 87491; 87591; 99212

== ENCOUNTER 2024-05-19 13:03 | Outpatient (AMB) | payer OTHER, SELFPAY ==
--- NOTE | 2024-05-19 13:10 | A.OFFVIS_ITS ---
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 Information Interpreted: non-clinical & clinical Health Care / Medical Job Titles: Health Care / Medical Job Titles Present (Kristen GARCIA) Accompanied by: Self / Same As Patient Allergies Influenza Virus Vaccines Adverse Reaction (Verified 05/19/24 13:13) Wheezing HPI Comments Details: Presenting complaining of vulvovaginal discharge associated with vulvar itching no foul odor PFSH Medical History Obesity, Class II, BMI 35-39.9, isolated Uterine fibroid Tendonitis Post-nasal drip Menorrhagia Carpal tunnel syndrome of right wrist Anxiety Anemia Cough Sleep apnea Asthma HTN (hypertension) Depression Surgical History Hx of colonoscopy History of esophagogastroduodenoscopy (EGD) [place] teeth removed Hx of section History of tubal ligation Family History Mother Diverticulitis large intestine HTN (hypertension) Diabetes Father HTN (hypertension) Heart disease Social History Household Members: Spouse and Children Alcohol intake: never Patient Tobacco Use Status: Never used Tobacco Female Reproductive History Menstrual Age of Menarche: 10 Review of Systems Const All systems reviewed & are unremarkable except as noted in HPI and below Physical Exam Vital Signs: BMI result Body Mass Index 39.0 General: Yes no CVA tenderness External Female Exam: normal external appearance and normal appearance of the urethra Speculum Exam - Vagina: normal appearance of the vagina, normal palpation, no lesions and no masses Speculum Exam - Cervix: normal appearance of the cervix, normal palpation, no lesions, no masses and nontender Bimanual exam- vagina & uterus: normal bimanual exam, normal palpation, uterine size normal, normal palpation, uterine shape normal, No Cervical tenderness present and non-tender Bimanual Exam- Adnexa, other: normal adnexae Back/Spine/Pelvis Back: no CVA tenderness Assessment & Plan Assessment & Plan (1) Vulvovaginitis: Code(s): N76.0 - Acute vaginitis Category: Medical Plan: GC/CT, Bacterial Vaginosis panel taken, Terazol 0.8% q.h.s. for 3 days was sent to the patient's pharmacy. The patient was instructed to call if symptoms don't improve in 48 hours. Medications: New terconazole 0.8% 1 appful vaginal BEDTIME 3 days 20 grams 0RF Coding Level of Care Code Est Pt Level 3 (76139) Diagnoses Vulvovaginitis N76.0
[2024-05-19 13:11] VITALS: BMI 39.0
== END 2024-05-19 13:40 | disposition home or self-care (01) ==
PROVIDERS: PCP Internal Medicine; Visit Provider Obstetrics & Gynecology
DX: N76.0 Acute vaginitis (principal)
CPT/HCPCS: 99213

== ENCOUNTER 2024-05-22 10:01 | Outpatient (REF) | payer OTHER, SELFPAY ==
--- NOTE | ~2024-05-22 | MM_ITS ---
EXAMINATION: MM SCREENING DIGITAL BREAST TOMOSYNTHESIS, BILATERAL CLINICAL INFORMATION: Screening. Asymptomatic. COMPARISON: Mammography: Comparison is made with available priors TECHNIQUE: Digital breast mammography with tomosynthesis is performed in both the craniocaudal and mediolateral oblique views along with computer-aided detection (CAD). FINDINGS: There are scattered areas of fibroglandular density (ACR BI-RADS breast composition Category b). There are no significant masses, abnormal calcifications, or other abnormalities. MM/MM tomosynthesis screening BI IMPRESSION: No mammographic evidence of malignancy. ASSESSMENT: BI-RADS BI-RADS 1 - Negative RECOMMENDATION: Routine annual mammography screening. 1 year F/U This examination should not preclude the clinical evaluation of a suspicious palpable abnormality. This patient's information was entered into a reminder system with a target due date for their next mammogram. Electronically signed by: Edie Phillips DO 06/04/2024 07:47 PM EDT
== END 2024-05-22 10:02 | disposition home or self-care (01) ==
LOC: HO.MAMMO 10:01
PROVIDERS: PCP Internal Medicine; Visit Provider Internal Medicine
DX: Z12.31 Encounter for screening mammogram for malignant neoplasm of breast (principal)
CPT/HCPCS: 77063; 77067

== ENCOUNTER → 2024-05-22 10:30 | Outpatient (BNV) | payer OTHER, SELFPAY | PROVIDERS: PCP Internal Medicine; Visit Provider Internal Medicine | DX: Z12.31 Encounter for screening mammogram for malignant neoplasm of breast (principal) | CPT/HCPCS: 77063; 77067 ==

== ENCOUNTER 2024-06-12 07:44 | Outpatient (AMB) | payer OTHER, SELFPAY ==
--- NOTE | 2024-06-12 07:45 | A.OFFVIS_ITS ---
Intake Visit Reasons: 2m/US(set) Intake Note: Patient presents today for tele visit follow up on : Dysuria and ultrasound results Imaging Completed:04/21/24 Urology Medications: Estrace Cream Allergies to Antibiotic: none Blood Thinner: none Brazer Resistance Required: Yes Brazer Resistance Name: [id number] Accompanied by: Self / Same As Patient Allergies Influenza Virus Vaccines Adverse Reaction (Verified 06/12/24 08:13) Wheezing Medication List - Last Reconciled 06/12/24 by CASSANDRA Gipson albuterol sulfate 90 mcg/actuation (ProAir HFA) inhalation azelastine 2 sprays intranasal BID benztropine 0.5 mg PO BID bisacodyl (Dulcolax (bisacodyl)) 10 mg [place] DAILY PRN citalopram 10 mg PO DAILY clotrimazole-betamethasone 1-0.05 % 1 appl topical BID desvenlafaxine succinate ER 200 mg PO DAILY docusate sodium (Colace) 200 mg (2 x 100 mg) PO BEDTIME estradiol 0.01%(0.1mg/gram) pea sized amount to urethra 3 times a week 30 days fluoxetine 60 mg PO DAILY gabapentin 600 mg PO TID ibuprofen 600 mg PO TID ipratropium bromide 2 sprays intranasal BID losartan 50 mg PO DAILY methylcellulose (laxative) (Citrucel) 500 mg PO TID 30 days metoprolol tartrate 75 mg PO DAILY mometasone-formoterol 200-5 mcg/actuation (Dulera) 2 puffs inhalation BID naproxen 375 mg PO BID PRN olanzapine 20 mg PO DAILY polyethylene glycol 3350 (Miralax) 238 grams PO ONCE PRN 1 day rizatriptan 10 mg PO QD-BID sumatriptan succinate 100 mg PO DAILY PRN terconazole 0.8% 1 appful vaginal BEDTIME 3 days trazodone 150 mg PO BEDTIME trazodone 150 - 300 mg PO BEDTIME PRN HPI Comments Details: Gia is a very pleasant 49-year-old [place]an-speaking female patient of Dr. Romero. She has a past medical history of obesity, uterine fibroid, menorrhagia status post hysterectomy 2 years ago, carpal tunnel, anxiety, sleep apnea, asthma, hypertension, and depression. She presents to the office today for follow-up. Of note patient was seen approximately 3 months as a new patient for dysuria and stress incontinence at which time her urine was sent for urine culture and a retroperitoneal ultrasound was ordered for further assessment evaluation. These results reviewed with the patient today. The kidneys are normal in size, contour, and echogenicity. No calculi, lesions, and or hydronephrosis noted. The bladder is well distended and normal. Bladder jets are demonstrated. Pre void bladder volume is approximately 250 mL. Postvoid bladder volume is a proximally 6 mL. Urine culture 03/03 mixed bacteria. Patient reports dysuria she had been experiencing has since subsided however recently followed up with Dr. Haq be her bobj developer for vaginal itching at which time she was prescribed a cream and feels symptoms are improving. When asked she does continue to report episodes of stress incontinence however will continue with pelvic floor exercises at home as she does not wish to undergo any other treatment options at this time. She otherwise denies hematuria, foul smelling urine, changes to urinary stream, flank pain, fever, and or chills. Discussed at length potential causes for lower urinary tract symptoms patient is experiencing. She otherwise offers no other issues or concerns at this time. [facility] Medical History Obesity, Class II, BMI 35-39.9, isolated Uterine fibroid Tendonitis Post-nasal drip Menorrhagia Carpal tunnel syndrome of right wrist Anxiety Anemia Cough Sleep apnea Asthma HTN (hypertension) Depression Surgical History Hx of colonoscopy History of esophagogastroduodenoscopy (EGD) [place] teeth removed Hx of section History of tubal ligation Family History Mother Diverticulitis large intestine HTN (hypertension) Diabetes Father HTN (hypertension) Heart disease Social History (Reviewed 06/12/24 @ 07:47 by Floresita Kim Household Members: Spouse and Children Alcohol intake: never Patient Tobacco Use Status: Never used Tobacco Female Reproductive History Menstrual Age of Menarche: 10 Review of Systems Const Reports no additional complaints Eyes Reports no additional complaints ENT Reports no additional complaints Card Reports as per HPI Resp Reports as per HPI GI Reports no additional complaints Reports as per HPI Musc Reports as per HPI Neuro Reports as per HPI Psych Reports as per HPI Endo Reports no additional complaints Sheng/Lymph Reports no additional complaints Aller/Immun Reports no additional complaints Physical Exam Const General: cooperative Resp Effort & Inspection: able to speak in complete sentences Psych Speech and movement: Clear speech present Affect: normal affect Attitude: cooperative Thought content: Normal thought content present Insight: Fair insight present (Psych) Judgement: Fair judgement present (Psych) Telehealth Telehealth Telehealth Platform: [employer] Location of provider rendering services: practice address Location of patient: address on file Patient Identification confirmed using: Name, : Yes Telehealth method: voice only Patient verbally consented to treatment: Yes Patient verbally consented to billing insurance company: Yes Patient informed of any privacy concerns related to visit: Yes Minutes spent on Phone/Video with Pt.: 15 Results Reviewed Results Reviewed: Date of Service: 04/21/24 EXAMINATION: US RETROPERITONEAL COMPLETE (RENAL) FINDINGS: RIGHT KIDNEY: 11.7 x 4.1 x 6.9 cm (SAG x AP x TRV). The kidney is normal in size, contour, and echogenicity. Renal cortical thickness is normal. No calculi or focal parenchymal lesions. No hydronephrosis. LEFT KIDNEY: 13.9 x 5.1 x 5.7 cm (SAG x AP x TRV). The kidney is normal in size, contour, and echogenicity. Renal cortical thickness is normal. No calculi or focal parenchymal lesions. No hydronephrosis. BLADDER: Well distended and normal. Bilateral ureteral jets are demonstrated. Prevoid bladder volume is 249.2 mL. Postvoid bladder volume is 5.9 mL. IMPRESSION: Normal ultrasound of the bilateral kidneys and urinary bladder. Assessment & Plan Assessment & Plan (1) Stress incontinence: Code(s): N39.3 - Stress incontinence (female) (male) Category: Medical (2) Dysuria: Code(s): R30.0 - Dysuria Category: Medical Plan Recent retroperitoneal ultrasound results reviewed with the patient today; as noted above. Previous urine culture results reviewed with the patient today; as noted above. Will continue with surveillance monitoring of stress incontinence. Continue pelvic floor exercises as discussed. Continue follow-up with bobj developer as recommended. Discussed, educated, and stressed the importance of adequate hydration relation to lower urinary tract symptoms as well as overall health and well-being. Discussed bladder triggers/irritants. Follow-up in 3 months with [facility]; or sooner with any issues, concerns, and or questions. Patient Instructions: The patient had an opportunity to ask questions regarding the treatment plan. All questions were answered. Physical exam, labs, and imaging were discussed and reviewed in detail. As well as risks, benefits, and discussion of treatment choices. No major barriers to understanding were identified. The patient expressed understanding and agreement with the above treatment plan. The patient was made aware they should contact our office by phone for worsening of their current condition, the appearance of new symptoms, or with any questions or concerns. Compliance is encouraged with any medications and follow up testing that is ordered. It is a privilege to be allowed the opportunity to participate in? your urological care.? Again, if you have any questions or concerns If you have any questions or concerns please do not hesitate to contact me. The office is [phone]. This note is constructed using voice recognition software. While every effort has been made to ensure accuracy bucket wash operator errors may have been included. Yours sincerely, CASSANDRA [employer] Coding Level of Care Code Tele Est Pt Level 3 (33121) Diagnoses Stress incontinence N39.3 Dysuria R30.0 Time Spent (min) 15
== END 2024-06-12 08:41 | disposition home or self-care (01) ==
LOC: HO.HUSH 07:44
PROVIDERS: PCP Internal Medicine; Visit Provider Nurse Practitioner Family
DX: N39.3 Stress incontinence (female) (male) (principal); R30.0 Dysuria
CPT/HCPCS: 99442

== ENCOUNTER → 2024-06-12 07:44 | Outpatient (BNVA) | payer OTHER, SELFPAY | PROVIDERS: PCP Internal Medicine; Visit Provider Nurse Practitioner Family ==

== ENCOUNTER 2024-08-12 10:23 | Outpatient (AMB) | payer OTHER, SELFPAY ==
[2024-08-12 10:35] VITALS: BP 130/88; BMI 36.9
--- NOTE | 2024-08-12 10:35 | MHC.OFFVIS ---
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 Complaining of vulvovaginal itching with no vaginal discharge or foul odor Last Pap/HPV was negative in 06/02 Last Mammogram was BI-RADS 1 in 06/03 Last Colonoscopy was in 05/02, the recommendation was to repeat in 1 year for repeat to do suboptimal prep, the patient is scheduled for a preop visit in few weeks [facility] Medical History Obesity, Class II, BMI 35-39.9, isolated Uterine fibroid Tendonitis Post-nasal drip Menorrhagia Carpal tunnel syndrome of right wrist Anxiety Anemia Cough Sleep apnea Asthma HTN (hypertension) Depression Surgical History Hx of colonoscopy History of esophagogastroduodenoscopy (EGD) [place] teeth removed Hx of section History of tubal ligation Family History Mother Diverticulitis large intestine HTN (hypertension) Diabetes Father HTN (hypertension) Heart disease Social History Household Members: Spouse and Children Alcohol intake: never Patient Tobacco Use Status: Never used Tobacco Female Reproductive History Menstrual Age of Menarche: 10 control method: permanent sterilization Total pregnancies: 2 Full term: 2 Number of Living Children: 2 Date of last pap smear: 06/07/23 Date of Mammogram: 05/22/24 Review of Systems Const All systems reviewed & are unremarkable except as noted in HPI and below Card Reports as per HPI Resp Reports as per HPI GI Reports as per HPI and Reports no additional complaints Reports as per HPI Physical Exam Vital Signs: Last Vital Signs BP 130/88 08/12/24 10:35 BMI result Body Mass Index 36.9 Const General: cooperative, healthy appearing and comfortable Chest Chest palpation & inspection: normal inspection of the chest and normal palpation of entire chest wall Breast/axilla inspection: normal inspection of the breasts and normal inspection of the axillae Breast/axilla palpation: normal palpation of the breasts, normal palpation of the axillae and no axillary lymphadenopathy Resp Effort & Inspection: normal respiratory effort Auscultation: clear to auscultation bilaterally Percussion: percussion normal Cardio Palpation: normal PMI Rate: regular rate Rhythm: regular rhythm Heart sounds: no murmurs and no rubs Peripheral pulses: Peripheral pulses 2+ throughout GI Inspection: Yes normal to inspection Palpation (GI): Soft to palpation, nontender, no guarding, not rigid and No hepatosplenomegaly present Percussion: Yes normal to percussion Auscultation: normal bowel sounds Rectal Exam - Female: deferred General: Yes bladder normal to palpation External Female Exam: No lesion Speculum Exam - Vagina: normal appearance of the vagina, normal palpation, normal vaginal discharge and not erythematous Speculum Exam - Cervix: normal appearance of the cervix and normal palpation Bimanual exam- vagina & uterus: normal bimanual exam, normal palpation, uterine size normal, bladder normal to palpation, consistency normal and normal palpation Bimanual Exam- Adnexa, other: normal adnexae, no masses and no tenderness Assessment & Plan Assessment & Plan (1) Well woman exam: Code(s): Z01.419 - Encounter for gynecological examination (general) (routine) without abnormal findings Category: Medical Plan: Co testing not indicated this year. Counseled the patient about the recommended dietary allowance of 1200 mg of Calcium & 600 IU of vitamin D. Instructions given the patient to schedule next screening Mammogram in 06/03. The patient is scheduled with GI for preop visit for screening colonoscopy . The patient was instructed to perform monthly self-breast exams and schedule annual exam in a year. All questions answered and the patient verbalized understanding. (2) Vulvovaginitis: Code(s): N76.0 - Acute vaginitis Category: Medical Plan: GC/CT, Bacterial Vaginosis panel taken, Terazol 0.8% q.h.s. for 3 days was sent to the patient's pharmacy. The patient was instructed to call if symptoms don't improve in 48 hours. Medications: Refilled terconazole 0.8% 1 appful vaginal BEDTIME 3 days 20 grams 0RF Coding Level of Care Code Est Pt Prev Care 40-64y(97950) Diagnoses Well woman exam Z01.419 Vulvovaginitis N76.0
== END 2024-08-12 11:02 | disposition home or self-care (01) ==
PROVIDERS: PCP Internal Medicine; Visit Provider Obstetrics & Gynecology
DX: Z01.419 Encounter for gynecological examination (general) (routine) without abnormal findings (principal); N76.0 Acute vaginitis
CPT/HCPCS: 99396

== ENCOUNTER 2024-08-12 10:23 | Outpatient (REF) | payer OTHER, SELFPAY ==
[2024-08-13 07:19] LABS: CT PCR NOT DETECTED (Not Detect.); NG PCR NOT DETECTED (Not Detect.)
[2024-08-13 11:33] LABS: Bacterial Vaginosis PCR NEGATIVE (Negative); Candida Group PCR DETECTED (Not Detect); Candida glab krusei PCR NOT DETECTED (Not Detect); Trichomonas vaginalis PCR NOT DETECTED (Not Detect)
== END 2024-08-12 10:24 | disposition home or self-care (01) ==
LOC: HO.LNP 10:23
PROVIDERS: PCP Internal Medicine; Visit Provider Obstetrics & Gynecology
DX: Z01.419 Encounter for gynecological examination (general) (routine) without abnormal findings (principal); Z12.11 Encounter for screening for malignant neoplasm of colon; K59.09 Other constipation; N76.0 Acute vaginitis
CPT/HCPCS: 0352U; 87491; 87591; 99212; 99396

== ENCOUNTER 2024-08-12 12:27 | Outpatient (AMB) | payer OTHER, SELFPAY ==
--- NOTE | 2024-08-12 12:32 | MHC.OFFVIS ---
Vital Signs 08/12/24 12:35 Height 5 ft 4 in Weight 215 lb 2.738 oz BMI 36.9 BP 133/90 H Blood Pressure Location Rt brachial Position Sitting Pulse 71 Intake Visit Reasons: pre colonoscopy /[place] pt Intake Note: Patient in office today for colonoscopy screening. CC: Patient c/o constipation, abdominal bloating after eating, and heartburn sometimes. Patient asking for medication refill but not sure about the medications' name. Features Reporter Required: Yes Allergies Influenza Virus Vaccines Adverse Reaction (Verified 08/12/24 12:36) Wheezing HPI Comments Details: 49 y.o F with PMH obesity, HTN, CIC, here for follow up to discuss colo. Last colo 2022 was poor prep. So recommendation was to repeat a colo in a year. Rectal polyp removed was hyperplastic. Otherwise pt without any abd pain, diarrhea, blood in stool. No fam hx of CRC in FDRs. PFSH Medical History Obesity, Class II, BMI 35-39.9, isolated Uterine fibroid Tendonitis Post-nasal drip Menorrhagia Carpal tunnel syndrome of right wrist Anxiety Anemia Cough Sleep apnea Asthma HTN (hypertension) Depression Surgical History Hx of colonoscopy History of esophagogastroduodenoscopy (EGD) [place] teeth removed Hx of section History of tubal ligation Family History Mother Diverticulitis large intestine HTN (hypertension) Diabetes Father HTN (hypertension) Heart disease Social History Household Members: Spouse and Children Alcohol intake: never Patient Tobacco Use Status: Never used Tobacco Female Reproductive History Menstrual Age of Menarche: 10 Review of Systems Const All systems reviewed & are unremarkable except as noted in HPI and below Physical Exam Vital Signs: Last Vital Signs Pulse 71 08/12/24 12:35 BP 133/90 H 08/12/24 12:35 BMI result Body Mass Index 36.9 No apparent distress Nonicteric Abdomen soft, nondistended Alert and oriented x3, normal gait Assessment & Plan Assessment & Plan (1) Encounter for screening colonoscopy: Code(s): Z12.11 - Encounter for screening for malignant neoplasm of colon Category: Medical (2) Chronic constipation: Comment: Index screening colonoscopy, inadequate prep-will need repeat 1 year Consistent bowel regimen Code(s): K59.09 - Other constipation Category: Medical Plan Reviewed prep instructions extensively with the pt: -bisacodyl 2 tab BID 2 day before -CLD x1.5 days before -PEG prep one day before as per split prep instructions. -[place] to be booked on an elective basis Follow up after colo. Medications: New peg 3350-electrolytes 236-22.74-6.74 -5.86 gram (Golytely) as per split prep instructions, until fecal effluent is clear 240 mL PO Q10M 4,000 mL 0RF colonoscopy bisacodyl To start 2 days before colonoscopy 10 mg (2 x 5 mg) PO BID 2 days 8 tabs 0RF Refilled bisacodyl (Dulcolax (bisacodyl)) 10 mg AL DAILY PRN 20 ea 2RF constipation Discontinued methylcellulose (laxative) (Citrucel) Discontinued Reason: No Longer Medically Relevant 500 mg PO TID 30 days 90 tabs 5RF Coding Level of Care Code Est Pt Level 4 (81362) Diagnoses Encounter for screening colonoscopy Z12.11 Chronic constipation K59.09
[2024-08-12 12:35] VITALS: BP 133/90; PULSE 71; BMI 36.9
== END 2024-08-12 14:12 | disposition home or self-care (01) ==
LOC: HO.HGI 12:27
PROVIDERS: PCP Internal Medicine; Visit Provider Internal Medicine
DX: Z01.818 Encounter for other preprocedural examination (principal); Z12.11 Encounter for screening for malignant neoplasm of colon; K59.09 Other constipation
CPT/HCPCS: 99024

== ENCOUNTER 2024-09-15 10:28 | Outpatient (AMB) | payer OTHER, SELFPAY ==
--- NOTE | 2024-09-15 10:53 | A.OFFVIS_ITS ---
Intake Visit Reasons: 3m follow up Intake Note: Patient presents today for follow up on : Dysuria and incontinence Urology Medications: Estrace Cream Allergies to Antibiotic: none Blood Thinner: none PVR: 0ml's Claim Approver Required: Yes Claim Approver Services: Claim Approver Present Claim Approver Name: Dominic [id number] Accompanied by: Self / Same As Patient Allergies Influenza Virus Vaccines Adverse Reaction (Verified 09/15/24 11:16) Wheezing Medication List - Last Reconciled 09/15/24 by MAYRA Gipson- albuterol sulfate 90 mcg/actuation (ProAir HFA) inhalation azelastine 2 sprays intranasal BID benztropine 0.5 mg PO BID bisacodyl (Dulcolax (bisacodyl)) 10 mg MA DAILY PRN bisacodyl 10 mg (2 x 5 mg) PO BID 2 days cholecalciferol (vitamin D3) (Vitamin D3) 10 mcg PO DAILY citalopram 10 mg PO DAILY clotrimazole-betamethasone 1-0.05 % 1 appl topical BID desvenlafaxine succinate ER 200 mg PO DAILY docusate sodium (Colace) 200 mg (2 x 100 mg) PO BEDTIME estradiol 0.01%(0.1mg/gram) pea sized amount to urethra 3 times a week 30 days fluoxetine 60 mg PO DAILY furosemide 40 mg PO DAILY gabapentin 800 mg PO TID ibuprofen 600 mg PO TID ipratropium bromide 2 sprays intranasal BID lidocaine 5% patches topical losartan 50 mg PO DAILY metoprolol tartrate 100 mg PO BID mometasone-formoterol 200-5 mcg/actuation (Dulera) 2 puffs inhalation BID montelukast 10 mg PO DAILY naproxen 375 mg PO BID PRN olanzapine 20 mg PO DAILY peg 3350-electrolytes 236-22.74-6.74 -5.86 gram (Golytely) 240 mL PO Q10M polyethylene glycol 3350 (Miralax) 238 grams PO ONCE PRN 1 day rizatriptan 10 mg PO QD-BID sumatriptan succinate 100 mg PO DAILY PRN terconazole 0.8% 1 appful vaginal BEDTIME 3 days thiamine HCl (vitamin B1) 100 mg PO DAILY trazodone 150 mg PO BEDTIME HPI Comments Details: Gia is a very pleasant 49-year-old Citizen Of [place]-speaking female patient of Dr. Romero. She has a past medical history of obesity, uterine fibroid, menorrhagia status post hysterectomy 2 years ago, carpal tunnel, anxiety, sleep apnea, asthma, hypertension, and depression. She presents to the office today for follow-up. In discussion with the patient today she reports to be doing and feeling well. She reports compliance with Estrace cream as prescribed. She discusses having followed up with meat stocker for her ongoing vaginal pruritus. She discusses having been prescribed a cream as well and feels this has been helpful. She also discusses having increased her water intake and feels this has been helpful. Previous workup has included a retroperitoneal ultrasound 05/03 noting the kidneys are normal in size, contour, and echogenicity. No calculi, lesions, and or hydronephrosis noted. The bladder is well distended and normal. Bladder jets are demonstrated. Pre void bladder volume is approximately 250 mL. Postvoid bladder volume is approximately 6 mL. Urine culture 03/03 mixed bacteria. When asked she does continue to report episodes of stress incontinence however will continue with pelvic floor exercises at home as she does not wish to undergo any other treatment options at this time. She otherwise denies hematuria, foul smelling urine, changes to urinary stream, flank pain, fever, and or chills. Discussed at length potential causes for lower urinary tract symptoms patient is experiencing. In office urinalysis results reviewed with the patient today. She otherwise offers no other issues or concerns at this time. [facility] Medical History Obesity, Class II, BMI 35-39.9, isolated Uterine fibroid Tendonitis Post-nasal drip Menorrhagia Carpal tunnel syndrome of right wrist Anxiety Anemia Cough Sleep apnea Asthma HTN (hypertension) Depression Surgical History Hx of colonoscopy History of esophagogastroduodenoscopy (EGD) [place] teeth removed Hx of section History of tubal ligation Family History Mother Diverticulitis large intestine HTN (hypertension) Diabetes Father HTN (hypertension) Heart disease Social History Household Members: Spouse and Children Alcohol intake: never Patient Tobacco Use Status: Never used Tobacco Female Reproductive History Menstrual Age of Menarche: 10 Review of Systems Const Reports no additional complaints Eyes Reports no additional complaints ENT Reports no additional complaints Card Reports as per HPI Resp Reports as per HPI GI Reports no additional complaints Reports as per HPI Musc Reports as per HPI Neuro Reports as per HPI Psych Reports as per HPI Endo Reports no additional complaints Sheng/Lymph Reports no additional complaints Aller/Immun Reports no additional complaints Physical Exam Const General: cooperative, healthy appearing, comfortable, no acute distress, well developed, alert, awake and Physically active Nutritional Appearance: overweight Orientation/consciousness: patient oriented x3 Limitations: no limitations HEENT Head: Yes normal to inspection, Yes normocephalic and Yes atraumatic Ears: hearing grossly normal bilaterally Eyes General: appearance normal, both eyes and all related structures Neck Neck: Yes normal visual inspection and Yes trachea midline Chest Chest palpation & inspection: normal inspection of the chest Resp Effort & Inspection: able to speak in complete sentences Cardio Rate: regular rate GI Inspection: Yes normal to inspection General: Yes no CVA tenderness Back/Spine/Pelvis Back: no CVA tenderness Skin General skin exam: no rashes or lesions noted Neuro General: patient oriented x3 Extrem General: Yes normal to inspection Psych Appearance: grossly normal and well kempt Mental Status: mental status grossly normal Speech and movement: Clear speech present Affect: normal affect Attitude: cooperative Thought process: Normal thought process present Thought content: Normal thought content present Insight: Fair insight present (Psych) Judgement: Fair judgement present (Psych) Office Procedures Post Void Residual Post Residual Void Post Void Residual (PVR): 0 [id number]-[id number] Void Residual by ultrasound Results AMB Urinalysis, Automated UA Leukoctes 0 Ryan/uL Last Edit by Floresita White on 09/15/24 13:41 UA Nitrite Last Edit by Floresita White on 09/15/24 13:41 UA Urobilinogen 0.2 mg/dL Last Edit by Floresita White on 09/15/24 13:41 UA Protein 0 mg/dL Last Edit by Floresita Joiserge on 09/15/24 13:41 UA pH 6.5 Last Edit by Floresita White on 09/15/24 13:41 UA Blood 0 Reymundo/uL Last Edit by Floresita White on 09/15/24 13:41 UA Specific Energy 1.015 Last Edit by Floresita White on 09/15/24 13:41 UA Ketone Negative Last Edit by Floresita White on 09/15/24 13:41 UA Bilirubin 0 mg/dL Last Edit by Floresita White on 09/15/24 13:41 UA Glucose 0 mg/dL Last Edit by Floresita White on 09/15/24 13:41 Results Reviewed Results Reviewed: Laboratory Last Values Urine pH (Auto) 6.5 09/15/24 13:39 Specific Energy (Auto) 1.015 09/15/24 13:39 Urine Protein (Auto) 0 mg/dL 09/15/24 13:39 Glucose (UA)(Auto) 0 mg/dL 09/15/24 13:39 Urine Ketones (Auto) Negative 09/15/24 13:39 Urine Blood (Auto) 0 Reymundo/uL 09/15/24 13:39 Urine Bilirubin (Auto) 0 mg/dL 09/15/24 13:39 Urine Urobilinogen (Auto) 0.2 mg/dL 09/15/24 13:39 Leukocyte Esterase (Auto) 0 Ryan/uL 09/15/24 13:39 Assessment & Plan Assessment & Plan (1) Stress incontinence: Code(s): N39.3 - Stress incontinence (female) (male) Category: Medical (2) Dysuria: Code(s): R30.0 - Dysuria Category: Medical Plan In office urinalysis results reviewed with the patient today; as noted above. Patient currently denies any bothersome urinary issues or concerns. She will continue with pelvic floor exercises at home as discussed. We discussed further treatment options of stress incontinence and risks and benefits of these treatment options. Will continue with surveillance monitoring at this time. She reports be happy with current voiding parameters. Continue follow-up with meat stocker as recommended. Discussed, educated, and stressed the importance of adequate hydration relation to lower urinary tract symptoms as well as overall health and well-being. Discussed bladder triggers/irritants. Continue Estrace cream as prescribed; refill provided Follow-up in 6 months with PVR; or sooner with any issues, concerns, and or questions. Orders: Orders AMB Post Void Residual by ultrasound Today N39.3 - Stress incontinence (female) (male) AMB Urinalysis Automated Today Z13.9 - Encounter for screening, unspecified Medications: Changed From estradiol 0.01%(0.1mg/gram) pea sized amount to urethra 3 times a week 30 days 42.5 grams 2RF To estradiol 0.01%(0.1mg/gram) pea sized amount to urethra 3 times a week 42.5 grams 2RF 90 days Patient Instructions: The patient had an opportunity to ask questions regarding the treatment plan. All questions were answered. Physical exam, labs, and imaging were discussed and reviewed in detail. As well as risks, benefits, and discussion of treatment choices. No major barriers to understanding were identified. The patient expressed understanding and agreement with the above treatment plan. The patient was made aware they should contact our office by phone for worsening of their current condition, the appearance of new symptoms, or with any questions or concerns. Compliance is encouraged with any medications and follow up testing that is ordered. It is a privilege to be allowed the opportunity to participate in? your urological care.? Again, if you have any questions or concerns If you have any questions or concerns please do not hesitate to contact me. The office is [phone]. This note is constructed using voice recognition software. While every effort has been made to ensure accuracy project scientist errors may have been included. Yours sincerely, CASSANDRA Gipson Coding Level of Care Code Est Pt Level 3 (74779) Diagnoses Stress incontinence N39.3 Dysuria R30.0 CPT Codes Post Residual Void - PVR CPT Code: 54446-Tfcn Void Residual by ultrasound ([id number])
== END 2024-09-15 11:16 | disposition home or self-care (01) ==
PROVIDERS: PCP Internal Medicine; Visit Provider Nurse Practitioner Family
DX: N39.3 Stress incontinence (female) (male) (principal); R30.0 Dysuria; Z13.9 Encounter for screening, unspecified
CPT/HCPCS: 99213

== ENCOUNTER → 2024-09-15 10:28 | Outpatient (BNVA) | payer OTHER, SELFPAY | PROVIDERS: PCP Internal Medicine; Visit Provider Nurse Practitioner Family | DX: N39.3 Stress incontinence (female) (male) (principal); R30.0 Dysuria | CPT/HCPCS: 51798; 81003; 99212 ==

== ENCOUNTER 2025-01-29 11:11 | Day surgery (SDC) | payer OTHER, SELFPAY ==
[2025-01-27 12:30] VITALS: BMI 36.9
--- OUTSIDE RECORDS SUMMARY | 2025-01-28 14:58 | XMS_ITS ---
[facility] Address [address] [place] [address] Care Team Providers Care Board Machine Set Up Operator Name Role Phone Danny Romero MD Primary Care Provider Farzana Walton [phone] REASON FOR VISIT NS 12/24 Encounters Encounter Location Date Provider Diagnosis [facility] [address] [place] [address] 12/24/2024 Farzana Pruett Plan Of Treatment Next Appt Details Provider Name:Farzana Pruett , 03/24/2025 01:00:00 PM, [facility] [address], [place], [address], Progress Notes * MERT ZulyaDOB:10/1974 (49 yo F)Acc No.[id number]:12/24/2024 Patient:?ROLAJoi Billingsleyromi da :1975???Age:49 Y???Sex:Female Address:[address] [place] [address], [address] * true * Date:? Generated for Maria Gi nidia/Ayden/eTransmitting on:?01/28/2025 02:58 PM EDT
--- OUTSIDE RECORDS SUMMARY | 2025-01-28 14:59 | XMS_ITS ---
[facility] Jeremy [facility]by [place] Address [address] [place] [address] Care Team Providers Care Tetryl Dissolver Operator Name Role Phone Danny Romero MD Primary Care Provider Farzana Walton Unavailable [phone] Medications Medication SIG (Take, Route, Fr equency, [...] Negative Encounters Encounter Location Date Provider Diagnosis [facility] [address] [place] [address] 12/24/2024 Farzana Pruett Plan Of Treatment Next Appt Details Provider Name:Farzana Pruett , 03/24/2025 01:00:00 PM, [address] [place], [address], Progress Notes * Hitesh MIRB:10/1974 (49 yo F)Acc No.[id number]:12/24/2024 Progress Notes Patient:Noelle VALENTINE Provider:?Farzana Pruett DPM :1975???Age:49 Y???Sex:Female D ate:12/24/2024 Address:[address] [place], [place] [id number] Pcp:aDnny Romero MD Subjective: * Chief Complaints: * ??? * ROS:?General/Constitutional:?Nausea?denies.?Vomiting?denies.?Hunger Thirst?denies.?Loss appetite?denies.?Chills?denies.?Fatigue?denies.?Fever?denies.?Night Sweats?denies.?Unexplained weight loss?denies.?Unexplained weight gain?denies.?HEENTM:?Dentures?denies.?Dizziness?denies.?Glasses/contacts?denies.?Retinopathy?de nies.?Blurred/double vision?denies.?TMJ?denies.?Discharge/drainage?denies.?Implants?denies.?Sore throat?denies.?Dental implants?denies.?Hard of hearing ?denies.?Difficulty chewing/swallowing/speaking?denies.?Nose bleeds?denies.?Sore mouth?denies.?Respiratory:?On Oxygen?denies.?Pneumonia/pleurisy?denies.?Bronchitis?denies.?Emphysema?denies.?C oughing?denies.?Cough blood?denies.?Shortness of breath?denies.?Wheezing?denies.?Cardiovascular:?Pacemaker?denies.?MVP?denies.?WPW?denies.?CHF?denies.?Heart attack?denies.?Septal defect?denies.?Rapid beat?denies.?Chest pain ?denies.?Atrial Fib.?denies.?Murmur/Palpitations?denies.?Gastrointestinal:?Hemorrhoids?denies.?Stomach/Abdominal pain?denies.?Dark blood stool?denies.?Irritable bowel ?denies.?Constipation?denies.?Diarrhea?denies.?Hematology:?Swelling?denies.?Clots?denies.?Varicose Veins?denies.?Bruising?denies.?Bleeding problem?denies.?Genitourinary:?Blood urine?denies.?Frequent/Painfu/urination/bladder control?denies.?Kidney stones?denies.?Infection (UTI)?denies.?Nephropathy?denies.?sex trans dis (STD)?denies.?Prostate?denies.?Musculoskeletal:?Hammertoes?denies.?Bunions?denies.?Back Pain?denies.?Muscle Cramps/ Resting?denies.?Muscle cramps / walking?denies.?Generalized aches and pains?denies.?Weakness?denies.?Integ.:?Dilalo?denies.?Scars?denies.?Corns/calluses?denies.?Ingrown nails?denies.?Painful nails?denies.?Open Sores?denies.?Rashes?denies.?Neurologic:?Difficulty sleeping?denies.?Brain disorder?denies.?Numbness?denies.?Balance trouble?denies.?Confusion?denies.?Fainting/blackouts?denies.?Tingling?denies.?Tr emors?denies.? * Medical History:?Depression, Anxiety, Insomnia, HTN, DM, VIT D. DEF, FIBROIDS, +RF SENT TO [facility], HX SUICIDE ATTEMPT - OD 2014, GANGLION CYST R WRIST, ALLERGIC RHINITIS, ANEMIA GI AND HEME. * Surgical History:?colonoscop y 2022. * Family History:?Mother: bogdan nuñez, diagnosed with Diabetic - NIDDM, Family history of arthritis.?Father: .? * Social History:?Tobacco Use:?Tobacco use other than smoking?Are you an other tobacco user??No ?Tobacco Control (Standard)?Tobacco use:?Nonsmoker ???Drugs/Alcohol:?Drugs?Have you used drugs other than those for medical reasons in the past 12 months??No ???Miscellaneous:?Caffeine: yes. ?Children: yes. ?Marital status: . ???Drug/Alcohol:?AUDIT-C (Standard)?Did you have a drink containing alcohol in the past year??No ?Points?0 ?Interpretation?Negative * Medications:?Taking Docusate Sodium , Taking Flovent HFA , [...] Taking Chloraseptic , Taking Phenol Objective: * Vitals:? Assessment: Plan: * Treatment: * Images: * The named appointment provid er may or may not be the originator of this progress note, and it is not deemed complete until electronically signed by the appointment provider. Sign off status: Pending * Provider:?Farzana Pruett DPM Date:?2024 Generated for Girma jacob/Ayden/Reilly on:?01/28/2025 02:59 PM EDT
--- OUTSIDE RECORDS SUMMARY | 2025-01-28 14:59 | XMS_ITS | Encounter Summary ---
Author Organization [employer] Address [address] [facility] [address] [place] [address] Care Team Providers Care Regulatory Lead Name Role Phone Gabriela Blandon OD Primary Care Provider [phone] Encounter Details Date Type Department Care Team (Latest Contact Info) Description 07/04/2022 Abstract [facility] CONVERSIONS Dental, Provider, DDS Social History Tobacco Use Types Packs/Day Years Used Date Smoking Tobacco: Never Assessed Comments Unknown Sex and Gender Information Value Date Recorded Sex Assigned at Female 07/10/2022 10:30 AM EDT Legal Sex Female 10:30 AM EDT Gender Identity Female 08/21/2023 9:25 AM EST Sexual Orientation Choose not to disclose 2021 10:30 AM EDT documented as of this encounter Plan of Treatment Not on file documented as of this encounter Visit Diagnoses Not on filedocumented in this encounter Care Teams Regulatory Lead Relationship Specialty Start Date End Date Gabriela Blandon OD [address] [place] [id number] PCP - General Optometry 09/18/19 09/16/23 documented as of this encounter
--- OUTSIDE RECORDS SUMMARY | 2025-01-28 14:59 | XMS_ITS | Clinical Summary ---
Author Organization [employer] Address [address] [place] [address] Care Team Providers Care Custom Grinder Name Role Phone Unavailable Primary Care Provider Unavailabl e Allergies No known active allergies Medications Azelastine HCl 137 MCG/SPRAY solution Administer 2 sprays into each nostril in the morning. 3 Active benztropine (Cogentin) 0.5 MG tablet Take 0.5 mg by mouth with breakfast and with evening meal. 3 Active Vraylar 6 MG capsule TAKE 1 CAPSULE BY MOUTH DAILY IN THE MORNING 3 Active fluticasone (Flonase) 50 MCG/ACT nasal spray Administer 1 spray into each nostril in the morning. 3 Active gabapentin (Neurontin) 600 MG tablet Take 600 mg by mouth 3 times daily. 3 Active Caplyta 42 MG capsule Take 1 capsule by mouth in the morning. 3 Active Dulera 200-5 MCG/ACT inhaler INHALE 2 PUFFS BY MOUTH TWICE DAILY RINSE MOUTH AFTER USING. 3 Active rizatriptan (Maxalt) 10 MG tablet TAKE 1 TABLET BY MOUTH AT ONSET OF MIGRAINE. MAY REPEAT ONCE AFTER 2 HOURS IF NEEDED. DO NOT EXCEED 2 DOSES IN 24 HOURS. 3 Active traZODone (Desyrel) 150 MG tablet TAKE 2 TABLETS BY MOUTH EVERY DAY AT BEDTIME 3 Active albuterol (2.5 MG/3ML) 0.083% nebulizer solution INHALE 1 AMPULE USING A NEBULIZER EVERY 6 HOURS NEEDED FOR WHEEZING OR SHORTNESS OF BREATH Active Xarelto 20 MG tablet TAKE 1 TABLET BY MOUTH EVERY DAY WITH FOOD 4 Active oxyCODONE (Roxicodone) 5 MG immediate release tablet TAKE 1/2 TABLET BY MOUTH EVERY 6 HOURS FOR 3 DAYS NEEDED FOR PAIN 4 Active omeprazole (PriLOSEC) [address] capsule Take 40 mg by mouth Once per day. 4 Active montelukast (Singulair) 10 MG tablet Take 10 mg by mouth Once per day. Active metoprolol tartrate (Lopressor) 100 MG tablet Take 100 mg by mouth with breakfast and with evening meal. Active losartan (Cozaar) 50 MG tablet Take 50 mg by mouth Once per day. 4 Active Active Problems Problem Noted Date Diagnosed Date Dental caries on smooth surface limited to ename l 08/24/2023 Dental plaque 03/22/2023 Social History Tobacco Use Types Packs/Day Years Used Date Smoking Tobacco: Never Passive Smoke Exposure: Never Smokeless Tobacco: Never Tobacco Cessation:Counseling Given: Not Answered Alcohol Use Standard Drinks/Week Comments Never 0 (1 standard drink = 0.6 oz pur e alcohol) Comments Unknown Sex and Gender Information Value Date Recorded Sex Assigned at Female 07/10/2022 10:30 AM EDT Legal Sex Female 10:30 AM EDT Gender Identity Female 08/21/2023 9:25 AM EST Sexual Orientation Choose not to disclose 2021 10:30 AM EDT Last Filed Vital Signs Vital Sign Reading Time Taken Comments Blood Pressure 110/74 03/18/2024 3:02 PM EDT Pulse 78 03/18/2024 3:02 PM EDT Temperature - - Respiratory Rate - - Oxygen Saturation - - Inhaled Oxygen Concentration - - Weight - - Height - - Body Mass Index - - Plan of Treatment Health Maintenance Due Date Last Done Comments CT Colonography 1974 Colonoscopy 1974 Colorectal Cancer Screening 1974 Depression Screening 1974 FIT DNA/Cologuard 1974 FIT 1974 FOBT 1974 HIV Screening 1974 Lipid Panel 1974 SDOH Screening 1974 Sigmoidoscopy 1974 Disability Screening 1974 Alcohol/Substance Use Screening 1986 Family Planning (PISQ) 1989 Hepatitis C Screening 1992 DTaP/Tdap/Td Vaccines (1 - Tdap) 1993 Hepatitis B Vaccines (1 of 3 - 19+ 3-dose series) 1993 Pneumococcal Vaccine: 50+ Years (1 of 2 - PCV) 1993 Pap Smear 1995 Cervical Cancer Screening 2004 HPV/Cotest 2004 Mammogram 2014 Dental X-Ray: Full Mouth 01/23/2024 01/21/2021, 06/11 Zoster Vaccines (1 of 2) 2024 COVID-19 Vaccine ( - 2023- season) 2024 Influenza Vaccine (#1) 2024 Dental Oral Exam 09/19/2024 03/18/2024, , 07/04/2022, Additional history exists Dental Prophylaxis 09/19/2024 03/18/2024, 0 03/22/2023, 07/04/2022, Additional history exists Dental X-Ray: Bitewings 03/19/2025 03/18/20 24, 07/04/2022, 01/21/2021, Additional history exists Tobacco Screening 06/12/2025 06/12/2024 RSV Patients and Patients Aged 60 years or older (1 - 1-dose 75+ series) 2049 HIB Vaccines Aged Out No longer eligi ble based on patient's age to complete this topic HPV Vaccines Aged Out No longer eligi ble based on patient's age to complete this topic Hepatitis A Vaccines Aged Out No long er eligible based on patient's age to complete this topic IPV Vaccines Aged Out No longer eligi ble based on patient's age to complete this topic Meningococcal B Vaccine Aged Out No l onger eligible based on patient's age to complete this topic Meningococcal Vaccine Aged Out No norman christy eligible based on patient's age to complete this topic RSV under 20 months Aged Out No longe r eligible based on patient's age to complete this topic Rotavirus Vaccines Aged Out No longer eligible based on patient's age to complete this topic Procedures Procedure Name Priority Date/Time Associated Diagnosis Comments Full PROPHYLAXIS - ADULT Routine 07/09/2 024 3:00 PM EDT Dental plaque BITEWINGS - 4 RADIOGRAPHIC IMAGES Routine 03/18/2024 3:00 PM EDT Dental plaque PERIODIC ORAL EVALUATION - ESTABLISHED PATIENT Routine 03/18/2024 3:00 PM EDT INTRAORAL - COMPLETE SERIES OF RADIOGRAPHIC IMAGES Routine 01/21/2021 12:00 AM EDT from Last 3 Months or Most Recently Relevant to Health Maintenance Insurance [facility] [address] [place] [id number] [facility]
--- OUTSIDE RECORDS SUMMARY | 2025-01-28 14:59 | XMS_ITS | Clinical Summary ---
Author Organization [address] Address [address] [place] [address] Phone Care Team Providers Care Chair Spring Assembler Name Role Phone Danny Romero DO Primary Care Provider [phone] Surgical History Surgery Date Site/Laterality Comments SECTION PROCEDURE: HISTORICAL DELIVERY SECTION PROCEDURE: SECTION Medical History Medical History Date Comments Asthma DX:Asthma Depression DX:Depression Anxiety DX:Anxiety Anemia DX:Anemia HTN (hypertension) DX:HTN (hyper tension) Carpal tunnel syndrome of right wrist DX:Carpal tunnel syndrome of right wrist Severe obesity (BMI 35.0-39. 9) with comorbidity (CMS/[facility] V24, [facility] V28) 04/22/2019 DX:Severe obesi ty (BMI 35.0- 39.9) with comorbidity ([facility]); COMMENT: Hypertension Anemia DX:Anemia Depression DX:Depression Anxiety DX:Anxiety Insomnia DX:Insomnia Hypertension DX:Hypertension Vitamin D deficiency DX:Vitamin D deficiency Fibroids DX:Fibroids Allergic rhinitis DX:Allergic rh initis Anemia of unknown etiology 11/16/2017 DX:An emia of unknown etiology Suicide attempt (CMS/[facility] V24 , [facility] V28) 2014 DX:Suicide attempt ([facility]) Obesity DX:Obesity Diabetes mellitus (CMS/[facility] V 24, [facility] V28) DX:Diabetes mellitus ([facility]);COMMENT:Not on medication Family History Medical History Relation Name Comments No Known Problems Brother 1 No Known Problems Brother 2 No Known Problems Daughter Hypertension Father Cancer Father's Sister breast cance r Diabetes Mother No Known Problems Son Relation Name Status Comments Brother 1 Alive Brother 2 Alive Daughter Alive Father Alive Father's Sister Alive Mother Alive Son Alive Social History Tobacco Use Types Packs/Day Years Used Date Smoking Tobacco: Never Smokeless Tobacco: Never Alcohol Use Standard Drinks/Week Comments No 0 (1 standard drink = 0.6 oz pur e alcohol) Comments Unknown Sex and Gender Information Value Date Recorded Sex Assigned at Not on file Legal Sex Female 5:08 AM EST Gender Identity Not on file Sexual Orientation Not on file Obstetrics History Plan of Treatment Upcoming Encounters Date Type Department Care Team (Late st Contact Info) Description 05/19/2025 9:30 AM EDT Consult Bariatric Surgery - [place] [address] [place] [address] Flor Brantley PA [address] [place] [address] Health Maintenance Due Date Last Done Comments Breast Cancer Screening 1974 DTaP,Tdap,and Td Vaccines (1 - Tdap) 1993 Hepatitis B Vaccines (1 of 3 - 19+ 3-dose series) 1993 Pneumococcal Vaccine: 50+ Years (1 of 2 - PCV) 1993 Pneumococcal Vaccine: Pediatrics (0 to 5 Years) and At-Risk Patients (6 to 64 Years) (1 of 2 - PCV) 1993 Cervical Cancer Screening: P ap Smear 1995 Colorectal Cancer Screening: Colonoscopy 08/13/2022 Depression Screening 08/13/2022 HIV Screening 08/13/2022 Hepatitis C Screening 08/13/2022 Social Influencers of Health Screening 08/13/2022 Zoster Vaccines (1 of 2) 2024 COVID-19 Vaccine ( - 2023-2 5 season) 2024 Influenza Vaccine (Season Ended) 2025 Hypertension/CHF/CAD Annual BMP Blood Test 10/24/2025 10/24/2024, 07/18/2024 Cholesterol Screening (Lipid Panel) 10/24/2029 10/24/2024, 07/18/2024 HIB Vaccines Aged Out No longer eligi [...] on patient's age to complete this topic MMR Vaccines Aged Out No longer eligi ble based on patient's age to complete this topic Meningococcal ACWY Vaccine Aged Out N o longer eligible based on patient's age to complete this topic Meningococcal B Vaccine Aged Out No l onger eligible based on patient's age to complete this topic RSV Immunization Patients Under 20 months Aged Out No longer eligible b ased on patient's age to complete this topic Varicella Vaccines Aged Out No longer eligible based on patient's age to complete this topic Procedures Procedure Name Priority Date/Time Associated Diagnosis Comments URINALYSIS WITH REFLEX MICROSCOPIC Routine 11/28/2024 11:30 AM EDT UTI (urinary tract infection) Urinary frequency URINALYSIS WITH REFLEX MICROSCOPIC Routine 11/28/2024 11:30 AM EDT UTI (urinary tract infection) Urinary frequency CULTURE URINE Routine 11/28/2024 11:30 AM EDT UTI (urinary tract infection) Urinary frequency BASIC METABOLIC PANEL Routine 10/24/2024 9:07 AM EST GERD (gastroesophageal reflux disease) Foot pain CAD (coronary artery disease) HTN (hypertension) LIPID PANEL WITH REFLEX TO DIRECT LDL Routine 10/24/2024 9:07 AM EST GERD (gastroesophageal reflux disease) Foot pain CAD (coronary artery disease) HTN (hypertension) from Last 3 Months or Most Recently Relevant to Health Maintenance Results * Urinalysis with reflex microscopic (11/28/2024 11:30 AM EDT) Specific [place] Urine 1.014 1.003 - 1.030 LAB URINALYSIS - AUTOMATED METHOD 11/28/2024 3:19 PM [facility] pH, Urine 7.5 5.0 - 8.0 pH LAB URINALYSIS - AUTOMATED METHOD 11/28/2024 3:19 PM [facility] Leukocytes, Urine Negative Negative LAB URINALYSIS - AUTOMATED METHOD 11/28/2024 3:19 PM EDT [facility] Nitrite, Urine Negative Negative LAB URINALYSIS - AUTOMATED METHOD 11/28/2024 3:19 PM EDT [facility] Protein, Urine Negative <=Trace mg/dL LAB URINALYSIS - AUTOMATED METHOD 11/28/2024 3:19 PM EDT [facility] Glucose, Urine Negative Negative mg/dL LAB URINALYSIS - AUTOMATED METHOD 11/28/2024 3:19 PM EDT [facility] Ketones, Urine Negative Negative mg/dL LAB URINALYSIS - AUTOMATED METHOD 11/28/2024 3:19 PM [facility] Urobilinogen, Urine 0.2 0.2 - 1.0 mg/dL LAB URINALYSIS - AUTOMATED METHOD [facility] Bilirubin, Urine Negative Negative LAB URINALYSIS - AUTOMATED METHOD 11/28/2024 3:19 PM EDT [facility] Blood, Urine Negative Negative LAB URINALYSIS - AUTOMATED METHOD 11/28/2024 3:19 PM T [facility] Urine Urine specimen obtained by clean catch procedure / Unknown Non-blood Collection / Unknown 11/28/2024 11:30 AM EDT 11/28/2024 11:30 AM EDT us Arroyo Alexander STORE PERSON LAB URINE ORDERABLES Final Resul t [facility] [address] [place] [address], * Culture urine (11/28/2024 11:30 AM EDT) Culture, Urine No growth 11/29/2024 12:58 PM EDT [facility] Urine Urine specimen from urethra / Unknown Non-blood Collection / Unknown 11/28/2024 11:30 AM EDT 11/28/2024 11:30 AM EDT us Dina Alexander STORE PERSON LAB MICROBIOLOGY - GENERAL ORDER HOLLY Final Result [facility] [address] [place] [address], [place] [phone] * (ABNORMAL) Lipid panel with reflex to direct LDL (10/24/2024 9:07 AM EST) Cholesterol 201(H) 0 - 200 mg/dL LAB CHEMISTRY METHOD 10/24/2024 11:25 AM EST [facility] Triglycerides 177(H) 0 - 150 mg/dL LAB CHEMISTRY METHOD 10/24/2024 11:25 AM EST [facility] HDL 68 >=40 mg/dL LAB CHEMISTRY METHOD 10/24/2024 11:25 AM EST [facility] LDL Calculated 98 0 - 100 mg/dL LAB CHEMISTRY METHOD 10/24/2024 11:25 AM EST [facility] VLDL Cholesterol Brown 35.4 mg/dL LAB CHEMISTRY METHOD 10/24/2024 11:25 AM EST [facility] Non HDL Chol. (LDL+VLDL) 133 <145 mg/dL LAB CHEMISTRY METHOD 10/24/2024 11:25 AM EST [facility] Chol/HDL Ratio 3.0 0.0 - 4.4 LAB CHEMISTRY METHOD 10/24/2024 11:25 AM EST [facility] Blood Venous blood specimen / Unknown Venipuncture / Unknown 10/24/2024 9:07 AM EST 10/24/2024 9:07 AM EST us Arroyo Alexander STORE PERSON LAB BLOOD ORDERABLES Final Resul t [facility] [address] [place] [address], [place] [phone] * Basic metabolic panel (10/24/2024 9:07 AM EST) Sodium 139 133 - 145 mmol/L LAB CHEMISTRY METHOD 10/24/2024 11:25 AM [facility] Potassium 4.1 3.5 - 5.5 mmol/L LAB CHEMISTRY METHOD 10/24/2024 11:25 AM [facility] Chloride 106 96 - 110 mmol/L LAB CHEMISTRY METHOD 10/24/2024 11:25 AM [facility] CO2 28 21 - 32 mmol/L LAB CHEMISTRY METHOD 10/24/2024 11:25 AM [facility] Anion Gap 5 3 - 11 LAB CHEMISTRY METHOD 10/24/2024 11:25 AM [facility] Glucose 99 70 - 100 mg/dL LAB CHEMISTRY METHOD 10/24/2024 11:25 AM [facility] BUN 18 5 - 25 mg/dL LAB CHEMISTRY METHOD 10/24/2024 11:25 AM [facility] Creatinine 0.73 0.50 - 1.10 mg/dL LAB CHEMISTRY METHOD 10/24/2024 11:25 AM [facility] eGFR 100 >=60 mL/min/1. 73m2 LAB CHEMISTRY METHOD 10/24/2024 11:25 AM [facility] Comment:Calculation based on the??Chronic Kidney Disease Epidemiology Collaboration (CKD-EPI) equation refit??without adjustment for race. BUN/Creatinine Ratio 24.7 LAB CHEMISTRY METHOD 10/24/2024 11:25 AM [facility] Calcium 9.8 8.5 - 10.5 mg/dL LAB CHEMISTRY METHOD 10/24/2024 11:25 AM [facility] Blood Venous blood specimen / Unknown Venipuncture / Unknown 10/24/2024 9:07 AM EST 10/24/2024 9:07 AM EST us Arroyo Alexander STORE PERSON LAB BLOOD ORDERABLES Final Resul t [facility] [address] [place] [address], from Last 3 Months or Most Recently Relevant to Health Maintenance Insurance [facility] Member Subscriber Plan / Payer (Ef fective 2023-Present) Name:Gia Persaud Relation to Subscriber:Self Name:Gia Persaud Payer ID:[id number] Group ID:[id number] Type:Not on file Address: [place] [address] [place] [id number] Care Teams Chair Spring Assembler Relationship Specialty Start Date End Date Danny Romero DO [address] [place] [phone] PCP - General Internal Medicine 12/25/18
--- OUTSIDE RECORDS SUMMARY | 2025-01-28 14:59 | XMS_ITS | Encounter Summary ---
Author Organization [employer] Address [address] [place] [address] Care Team Providers Care Superintendent Quarry Name Role Phone Gabriela Blandon OD Primary Care Provider [phone] Encounter Details Date Type Department Care Team (Latest Contact Info) Description 01/21/2021 Abstract [facility] CONVERSIONS Dental, Provider, DDS Social [...] on filedocumented in this encounter Care Teams Superintendent Quarry Relationship Specialty Start Date End Date Gabriela Blandon OD [address] [place] [id number] PCP - General Optometry 09/18/19 09/16/23 documented as of this encounter
--- OUTSIDE RECORDS SUMMARY | 2025-01-28 14:59 | XMS_ITS | Clinical Summary ---
Author Organization [facility] Address [address] [place] [address] Care Team Providers Care Soaker Name Role Phone Danny Romero DO Primary Care Provider [phone] Allergies No known active allergies Medications Medication Sig Dispensed Refills Start Date End Date Status naproxen (NAPROSYN) 375 MG tablet Take 375 mg by mouth 2 (two) times a day with meals. 0 Active metoprolol succinate (TOPROL-XL) 24 hr tablet 50 mg Take 50 mg by mouth daily. 0 Active ARIPiprazole (ABILIFY) 20 MG tablet TAKE 1 TABLET EVERY MORNING 1 11/21/2017 Active benztropine (COGENTIN) 1 MG tablet TAKE 1 TABLET TWICE DAILY 1 11/21/2017 Active buPROPion (WELLBUTRIN XL) 300 MG 24 hr tablet TAKE ONE TABLET EVERY MORNING 1 09/20/2017 Active OLANZapine (ZYPREXA) 10 MG tablet TAKE 1 TABLET AT BEDTIME 1 11/21/2017 Active QUEtiapine (SEROQUEL) 400 MG tablet TAKE 1 TABLET EVERY EVENING AT 7pm 1 11/21/2017 Active traZODone (DESYREL) 150 MG tablet Take 300 mg by mouth every night at bedtime. 1 11/21/2017 Active FLUoxetine (PROZAC) 40 MG capsule Take 80 mg by mouth every morning. 2 12/19/2017 Active LATUDA 60 MG TABS Take 1 tablet by mouth every morning with breakfast. 0 12/19/2017 Active PROAIR HFA 108 (90 Base) MCG/ACT inhaler INHALE 1 PUFF FOUR TIMES DAILY DIRECTED 2 06/21/2018 Active tranexamic acid (LYSTEDA) 650 MG tablet Take 1,300 mg by mouth 3 (three) times a day. 2 10/10/2018 Active gabapentin (NEURONTIN) 600 MG tablet 0 08/22/2019 Active furosemide (LASIX) 20 MG tablet Take 20 mg by mouth daily. 3 07/03/2019 Active VRAYLAR 3 MG CAPS 0 07/03/2019 Active ferrous sulfate 325 (65 FE) MG tablet Take 1 tablet (325 mg total) by mouth 2 (two) times a day. 60 tablet 11 02/25/2020 Active Active Problems Problem Noted Date Diagnosed Date Iron deficiency anemia due to chronic blood loss 02/25/2020 Menorrhagia with irregular cycle 02/25/2020 Anemia of unknown etiology 11/16/2017 Family History Medical History Relation Name Comments No Sig Med Hx Brother 1 No Sig Med Hx Brother 2 No Sig Med Hx Daughter Hypertension Father Diabetes Mother Cancer Paternal Aunt breast cancer No Sig Med Hx Son Relation Name Status Comments Brother 1 Alive Brother 2 Alive Daughter Alive Father Alive Mother Alive Paternal Aunt Alive Son Alive Social History Tobacco Use Types Packs/Day Years Used Date Smoking Tobacco: Never Smokeless Tobacco: Never Alcohol Use Standard Drinks/Week Comments No 0 (1 standard drink = 0.6 oz pur e alcohol) Never used Sex and Gender Information Value Date Recorded Sex Assigned at Not on file Gender Identity Not on file Sexual Orientation Not on file Last Filed Vital Signs Vital Sign Reading Time Taken Comments Blood Pressure 120/82 02/25/2020 11:18 AM EDT Pulse 93 02/25/2020 11:18 AM EDT Temperature 36.9 ??C (98.4 ??F) 02/25/2020 11:18 AM E DT Respiratory Rate - - Oxygen Saturation 98% 06/26/2018 1:39 PM EDT Inhaled Oxygen Concentration - - Weight 101.6 kg (224 lb) 02/25/2020 11:18 AM EDT Height 162.6 cm (5' 4 ) 02/25/2020 11:18 AM EDT Body Mass Index 38.45 02/25/2020 11:18 AM EDT Plan of Treatment Health Maintenance Due Date Last Done Comments Hepatitis B Vaccines (1 of 3 - 3-dose series) 1974 Hepatitis C Screening 1974 COVID-19 Vaccine (#1) 1974 Pneumococcal Vaccine (1 of 2 - PCV) 1980 Depression Screening 1986 Preventative Health Evaluation 1992 DTap / Tdap / Td (1 - Tdap) 1993 Cervical Cancer Screening (P ap Smear) 1995 Colon Cancer Screening (Colonoscopy) 2019 Breast Cancer Screening (Mammogram) 2024 Shingrix-Zoster Vaccine (1 of 2) 2024 Influenza Vaccine (#1) 2024 RSV Ped < 20 months Aged Out No longe r eligible based on patient's age to complete this topic Care Teams Soaker Relationship Specialty Start Date End Date Danny Romero DO [address] [place] [id number] PCP - General Internal Medicine 11/16/17
--- OUTSIDE RECORDS SUMMARY | 2025-01-28 14:59 | XMS_ITS | Data Portability ---
Author Organization [place] - [facility], Allergy Address [address] [address] Care Team Providers Care Webfocus Developer Name Role Phone ELIUD KHALIL Primary Care Provider ELIUD KHALIL Referring Provider Assessment Encounter Date Assessment Date Assessment LastModified by Organization Details LastModified Time 12/09/2024 12/09/2024 Audiometric testing obtained with normal hearing levels identified. She also describes itchy ears. Fortunately her examination was benign with no evidence of infection at this time. She may benefit from intermittent use of Derm otic dplosky Not available 12/09/2024 16:35:45 Plan of Treatment Reminders Order Date Submit Date Provider Last Modified By Organization Details Last Modified Time Details Appointments None recorded. Lab None recorded. Referral None recorded. Procedures None recorded. Surgeries None recorded. Imaging None recorded. Medication Orders DermOtic Oil 0.01 % ear drops 2024 025 [facility]/Ph[facility] #[id number], [address] [place], [address], 16:34:40 Patient TargetsNo targets recorded. Patient InstructionsNo instructions recorded. Reason for Referral None Reported. Results Created Date Observation Date Name Description Value Unit Range Abnormal Flag Note LastModifiedBy Organization Detail LastModifiedTime 12/10/19 25 audio gram No observ ation record ed. BARCODE Not Available 2024 16:49:28 Result Notes None recorded. Problems Name Problem SNOMED Code Status Onset Date Resolution Date Notes Provider Name and Address Organization Details Recorded Time Dysphagia 22984751 Active 2022 Dysphagi a, unspecif ied; Note: Date Diagnose d: 3 4:11 PM (R13.10) Not Available [facility] 4 03:20:12 Bilateral diffuse otitis externa [id number] 9102 Active 2022 Diffuse otitis externa, bilatera l; Note: Date Diagnose d: 3 4:11 PM (H60.313 ) Not Available [facility] 4 03:20:13 Cough 17211054 Active 2022 Cough, unspecif ied; Note: Date Diagnose d: 3 4:11 PM (R05.9) Not Available [facility] 4 03:20:12 Abnormal auditory perceptio n 14765372 Active 2024 Mercedes corbin [place] - [facility] 5 16:07:24 Chronic otitis externa 56956388 Active 2024 MARCIA GONZALES MD [address] [place] [address] [place], [address] [facility] [place] - [facility] 5 16:33:38 Problem Notes None recorded. Procedures Surgical History Date Name Laterality Status Provider Name and Address Organization Details Recorded Time 12/09/2024 Comp Audio with Tymps - 48177 & 20809 completed Mercedes Mc [place] - [facility] 12/09/2024 16:07:17 Imaging Results Imaging Date Name Status LastModified by Organiz ation Details LastModified Time 12/09/2024 audiogram completed BARCODE Information no t available 12/09/2024 16:49:28 Procedure Notes None recorded. Medical Equipment None Reported. Allergies No known drug allergies Medications Name Sig Start Date Stop Date Status Note LastModified by Organization Details LastModified Time losartan 50 mg tablet TAKE 1 TABLET BY MOUTH EVERY DAY 12/09 completed Not Available Not Available Not Available furosemid e 40 mg tablet TAKE 1 TABLET BY MOUTH EVERY DAY 12/09 completed Not Available Not Available Not Available gabapenti n 600 mg tablet TAKE 1 TABLET BY MOUTH THREE TIMES DAILY 12/09 completed Not Available Not Available Not Available albuterol sulfate 2.5 mg/3 mL (0.083 %) solution for nebulizat ion INHALE 1 AMPULE USING A NEBULIZE R EVERY 6 HOURS NEEDED FOR WHEEZING OR SHORTNES S OF BREATH active Not Available Not Available No t Available cetirizin e 10 mg tablet 12/09 completed Medicati on ID: [id number] B rand Name: emy hussein Send Method: E-Prescr ibed Sub s Allowed: subs OK Speci al Instruct ion: TAKE 1 TABLET BY MOUTH ONCE DAILY Me dication GenericN aquiles: cetirizi ne Not Available Not Available Not Available cefpodoxi me 200 mg tablet TAKE 1 TABLET BY MOUTH EVERY TWELVE HOURS FOR 7 DAYS 12/09 completed Not Available Not Available Not Available ibuprofen 800 mg tablet TAKE 1 TABLET BY MOUTH EVERY 8 HOURS WITH FOOD OR MILK NEEDED FOR FOOT PAIN 12/09 completed Not Available Not Available Not Available metoprolo l tartrate 100 mg tablet TAKE 1 TABLET BY MOUTH TWICE DAILY WITH FOOD 12/09 completed Not Available Not Available Not Available terconazo le 0.8 % vaginal cream INSERT 1 APPLICAT ORFUL VAGINALL Y AT BEDTIME FOR 3 DAYS 12/09 completed Not Available Not Available Not Available thiamine HCl (vitamin B1) 100 mg tablet TAKE 1 TABLET BY MOUTH EVERY DAY active Not Available Not Available No t Available omeprazol e 40 mg capsule,d elayed release TAKE 1 CAPSULE BY MOUTH EVERY DAY 12/09 completed Not Available Not Available Not Available Vitamin D3 10 mcg (400 unit) tablet TAKE 1 TABLET BY MOUTH EVERY DAY active Not Available Not Available No t Available gabapenti n 800 mg tablet TAKE 1 TABLET BY MOUTH THREE TIMES DAILY active Not Available Not Available No t Available phenazopy ridine 100 mg tablet TAKE 1 TABLET BY MOUTH THREE TIMES DAILY FOR 3 DAYS WITH FOOD 12/09 completed Not Available Not Available Not Available benzonata te 100 mg capsule TAKE 1 CAPSULE BY MOUTH THREE TIMES DAILY FOR 7 DAYS NEEDED 12/09 completed Not Available Not Available Not Available bisacodyl 10 mg rectal supposito ry UNWRAP AND INSERT 1 SUPPOSIT ORY RECTALLY DAILY NEEDED FOR CONSTIPA TION 12/09 completed Not Available Not Available Not Available trazodone 150 mg tablet TAKE 2 TABLETS BY MOUTH EVERY DAY AT BEDTIME active Not Available Not Available No t Available lidocaine 5 % topical patch APPLY 1 PATCH TOPICALL Y TO SKIN, LEAVE ON FOR 12 HOURS AND OFF FOR 12 HOURS DIRECTED active Not Available Not Available No t Available montel[address] st 10 mg tablet TAKE 1 TABLET EVERY DAY 12/09 completed Not Available Not Available Not Available bisacodyl 5 mg tablet,de layed release TAKE 2 TABLETS BY MOUTH TWICE DAILY FOR 2 DAYS. START 2 DAYS BEFORE COLONOSC OPY 12/09 completed Not Available Not Available Not Available azelastin e 137 mcg (0.1 %) nasal spray USE 2 SPRAYS IN EACH NOSTRIL EVERY DAY active Not Available Not Available No t Available ibuprofen 600 mg tablet TAKE 1 TABLET BY MOUTH EVERY 8 HOURS FOR 5 DAYS WITH FOOD OR MILK 12/09 completed Not Available Not Available Not Available estradiol 0.01% (0.1 mg/gram) vaginal cream APPLY A PEA SIZED AMOUNT TO URETHRA 3 TIMES PER WEEK active Not Available Not Available No t Available albuterol sulfate HFA 90 mcg/actua tion aerosol inhaler INHALE 1 PUFF BY MOUTH FOUR TIMES DAILY active Not Available Not Available No t Available fluticaso ne propionat e 50 mcg/actua tion nasal spray,[facility] active Medicati on ID: [id number] B rand Name: fluticas one propiona te Send Method: E-Prescr ibed Sub s Allowed: subs OK Medic ationGen ericName : fluticas one propiona te Not Available Not Available Not Available loratadin e 10 mg tablet TAKE 1 TABLET EVERY DAY active Not Available Not Available No t Available diazepam 5 mg tablet TAKE 1 TABLET BY MOUTH TWICE DAILY active Not Available Not Available No t Available oxycodone 5 mg tablet TAKE 1/2 TABLET BY MOUTH EVERY 6 HOURS FOR 3 DAYS NEEDED FOR PAIN 12/09 completed Not Available Not Available Not Available cyclobenz aprine 5 mg tablet TAKE 1 TABLET BY MOUTH AT BEDTIME FOR 7 DAYS 12/09 completed Not Available Not Available Not Available DermOtic Oil 0.01 % ear drops INSTILL 5 DROPS INTO AFFECTED EAR(S) BY OTIC ROUTE 2 TIMES PER DAY x 1 week 2024 active Not Available Not Available Not Avai lable Chlorasep tic Throat [place] 1.4 % aerosol 1 SPRAY BY MOUTH. KEEP IN PLACE FOR 15 SECONDS THEN SPIT. USE EVERY 2 HOURS NEEDED FOR SORE THROAT FOR 7 DAYS 12/09 completed Not Available Not Available Not Available peg 3350-elec trolytes 236 gram-22.7 4 gram-6.74 gram-5.86 gram solution DRINK 8 OUNCES OF LIQUID EVERY 10 MINUTES DIRECTED AFTER MIXING WITH WATER. TAKE DIRECTED PER OFFICE. TAKE UNTIL FECAL EFFLUENT IS CLEAR 12/09 completed Not Available Not Available Not Available FreeStyle Lite Strips USE DIRECTED TO TEST BLOOD SUGAR EVERY DAY active Not Available Not Available No t Available FreeStyle [place] Lite kit USE DIRECTED TO TEST BLOOD SUGAR EVERY DAY active Not Available Not Available No t Available Pristiq 100 mg tablet,ex tended release Take 1 tablet every day by oral route. active Not Available Not Available No t Available Dulera 200 mcg-5 mcg/actua tion HFA aerosol inhaler INHALE 2 PUFFS BY MOUTH TWICE DAILY, RINSE MOUTH AFTER USING., DO NOT SWALLOW active Not Available Not Available No t Available Xarelto 20 mg tablet TAKE 1 TABLET BY MOUTH EVERY DAY WITH FOOD 12/09 completed Not Available Not Available Not Available TRUEplus Lancets 33 gauge USE DIRECTED TO TEST BLOOD SUGAR EVERY DAY active Not Available Not Available No t Available Cobenfy Starter Pack 50 mg-20 mg/100 mg-20 mg capsules in a dose pack TAKE 1 CAPSULE BY MOUTH TWICE DAILY DIRECTED BY PACKAGE active Not Available Not Available No t Available Cobenfy 125 mg-30 mg capsule TAKE 1 CAPSULE BY MOUTH TWICE DAILY active Not Available Not Available No t Available Vitals Date Recorded Body height Body mass index (BMI) Body weight Provider Name and Address Organization Details Last Updated DateTime 12/09/2024 162.56 cm 35.7 kg/m2 22281.21 g BHAVIN OLIVA [place] - [facility] 12/09/2024 16:21:46 Social History None recorded. Functional Status None recorded. Mental Status None recorded. Family History Nothing Reported. Medical History No medical history recorded. Gynecological HistoryNo gynecological history recorded. Obstetrics History GPAL:G 0 P 0 0 0 0 Past Encounters Encounter ID Performer Location Encounter Start Date Encounter Closed Date Diagnosis/Indication Diagnosis SNOMED-CT Code Diagnosis ICD10 Code Diagnosis Note [id number] MARCIA GONZALES MD [facility] [address] [address] 12/09/2024 15:41:10 12/09/2024 16:37:59 Abnormal auditory perception 36432901 H93.299 Audiologic al evaluation results: Right ear: {{Normal N ormal through 2 kHz Mild M oderate Mo derately-s evere Zulema re Profoun d [facility] lly normal#}} {{hearing hearing. s loping to a mild slopi ng to a moderate s loping to moderately severe slo ping to severe slo ping to profound f lat high frequency low frequency mid frequency cookie bite murillo curve hear ing with#}} {{excellen t* good fa ir poor no measurable }} word recognitio n. Left ear: {{Normal* Normal through 2 kHz Mild M oderate Mo derately-s evere Zulema re Profoun d}} {{hearing* hearing. sloping to a mild slopi ng to a moderate s loping to moderately severe slo ping to severe slo ping to profound f lat high frequency low frequency mid frequency cookie bite murillo curve}} {{with* se nsorineura l hearing loss with condu ctive hearing loss with mixed hearing loss with}} {{excellen t* good fa ir poor no measurable }} word recognitio n. Tympanomet ry: Right Ear:{{Type A* Type A with rounded peak Type A with double peak Type As Type As with rounded peak Type Ad Type C Type C, shallow & rounded peak Type B Type B with large volume Cou ld not maintain a hermetic seal}} Left Ear:{{Type A* Type A with rounded peak Type A with double peak Type As Type As with rounded peak Type Ad Type C Type C, shallow & rounded peak Type B Type B with large volume Cou ld not maintain a hermetic seal}} Chronic ot itis externa 13185459 H60.63 Health Concerns Section Related Observation LastModified by Organization Detai ls LastModified Time None Recorded Concern Status LastModified by Organization Details LastModified Time None Recorded Advance Directives Directive None Recorded Payers Insurance Date Sequence Insurance Name Policy Number Policy Shah Covered Member ID Shah Member ID Guarantor Name 12/09/2024 1 [facility] - DOS ON OR AFTER 2022 - ONE CARE (MEDICARE REPLACEMENT/ADV ANTAGE - HMO) Gia Keating [id number] Gia Keating 12/09/2024 2 [employer] - [facility] [place] (MEDICARE REPLAC[place]/ADV ANTAGE - HMO) Gia Lukasz Keating [id number] Gia Lukasz Keating Notes Date Note Type Note Provider Name and Address Organization Details Recorded Time 12/09/2024 text/html Ipad - Spanishhearing [id number] had severe otalgia in [place] and had ear cleaningno sig hx of noise exposure additionally itchy earsno previous trial of medications PV 01/08/24 Santosh dysphagia, mod ba swallow normal. no intervention. MARCIA GONZALES MD [address] [place] [address], [address], [place] - [facility] 12/09/2024 16:35:57 OBGyn Episode No OBEpisode recorded.
--- OUTSIDE RECORDS SUMMARY | 2025-01-28 14:59 | XMS_ITS | Patient Health Record ---
Author Organization [facility] Address [address] [place] [address] Care Team Providers Care School Curriculum Developer Name Role Phone Heather TATE, Danny Primary Care Provider Farzana Walton Unavailable [phone] Reason For Referral No Information Medications Medication SIG (Take, Route, Fr equency, Duration) Notes Start Date End Date Status Flovent HFA Active Cetirizine HCl Activ e Vraylar Active Albuterol Sulfate Ac tive Gabapentin Active Cyclobenzaprine HCl Active SEROquel Active Latuda Active Chloraseptic Active Fluoxetine Active Phenol Active Omeprazole Active Docusate Sodium Acti ve Hydrocortisone Activ e Lidocaine Active Cogentin Active FreeStyle Lite Test Active OLANZapine Active ProAir HFA Active traZODone HCl Active Fluticasone Propionate Active Social History Tobacco Use: Social History Observation [...] Negative Encounters Encounter [facility] [address] [facility] [address] [place] [address] 12/17/2024 [facility] [address] [place] [address] 12/18/2024 [facility] [address] [place] [address] 12/24/2024 Farzana Pruett Plan Of Treatment Next Appt Details Provider Name:Farzana Pruett , 03/24/2025 01:00:00 PM, [address] [place], [place], [address], Insurance Providers Payer Name Payer Address Payer Phone Subscriber Number Group Number Insured Name Patient Relationship to Insured Coverage Start Date Coverage End Date [facility] [employer] Claims [address] ALESSIA Garrett [id number] Gia Eddy Self - patient is the insured Medical (General) History Medical History History ICD Code Depression Anxiety Insomnia HTN DM VIT D. DEF FIBROIDS +RF SENT TO RHEUM HX SUICIDE ATTEMPT - OD 2014 GANGLION CYST R W[facility]ST ALLERGIC RHINITIS ANEMIA GI AND HEME Surgical History Surgery Date(Month/Year) colonoscopy 2022
--- OUTSIDE RECORDS SUMMARY | 2025-01-28 14:59 | XMS_ITS ---
[facility] Address [address] [place] [address] Care Team Providers Care Correctional Counselor/Case Manager Name Role Phone Danny Romero MD Primary Care Provider Farzana Walton [phone] REASON FOR VISIT Debt Counselor Encounters Encounter Location Date Provider Diagnosis [facility] [address] [place] [address] 12/25/2024 Farzana Pruett Plan Of Treatment Next Appt Details Provider Name:Farzana Pruett , 03/24/2025 01:00:00 PM, [facility] [place], [place], [address], Progress Notes * Zuly MIRaDOB:10/1974 (49 yo F)Acc No.[id number]:12/25/2024 Patient:?Noelle MIR :1975???Age:49 Y???Sex:Female Address:[address] [place] [address], [address] * * Date:?
[2025-01-29] MEDS: Lactated Ringers 1,000 ML 80 ML IVCONT (11:56)
[2025-01-29 11:57] VITALS: BP 122/82; PULSE 84; RESP 18; TEMP 36.6; O2SAT 99; BMI 36.0
--- NOTE | 2025-01-29 12:05 | HO.ANESPROP2 ---
HPI - Anesthesia Eval Consult details Narrative: she is here for a colonoscopy. preventive procedure and she c/o constipation.htn, asthma,zaynab, obesity. [facility] Active Problems Active Problems: All Active Problems (Updated 05/19/24 @ 13:24 by Benji Haq MD) Vulvovaginitis (Acute) Stress incontinence (Acute) Dysuria (Acute) Hemorrhoids (Acute) Diverticulosis (Acute) Chronic constipation (Acute) Encounter for screening colonoscopy (Acute) Well woman exam (Acute) Past Medical History Medical History Obesity, Class II, BMI 35-39.9, isolated Uterine fibroid Tendonitis Post-nasal drip Menorrhagia Carpal tunnel syndrome of right wrist Anxiety Anemia Cough Sleep apnea Asthma HTN (hypertension) Depression Family History Family History Mother Diverticulitis large intestine HTN (hypertension) Diabetes Father HTN (hypertension) Heart disease Family history of problems with anesthesia: No Surgical History Surgical History (Updated 01/29/25 @ 12:00 by Danelle Adam RN) Hx of hysterectomy Hx of colonoscopy History of esophagogastroduodenoscopy (EGD) [place] teeth removed Hx of section History of tubal ligation History of Problems with Anesthesia: No Social History Social History Household Members: Spouse and Children Are you a primary field care manager to a significant other at home: No Do you presently have visiting nurse or other home services: No Alcohol intake: never Patient Tobacco Use Status: Never used Tobacco Have you been hit, kicked, punched, or otherwise hurt by someone within the past year? If so, by whom?: No Are you DNR?: No Advance Directives: No Advance Directives Information Provided: Yes Meds Allergies Allergy/AdvReac Type Severity Reaction Status Date / Time Influenza Virus Vaccines AdvReac Wheezing Verified 01/29/25 11:59 Active Medications: Current Medications Lactated Ringer's (Lr) 1,000 mls @ 80 mls/hr IVCONT .[id number] JOANNA Last Admin: 01/29/25 11:56 Dose: 80 mls/hr Home Medications ?Medication ?Instructions ?Recorded ?Confirmed ?Last Taken ?Type citalopram 10 mg tablet 10 mg PO DAILY 12/19/21 01/29/25 Unknown History clotrimazole-betamethasone 1 1 appl topical BID 12/19/21 01/29/25 Unknown History %-0.05 % topical cream naproxen 375 mg tablet 375 mg PO BID PRN Pain 12/19/21 01/29/25 Unknown History albuterol sulfate 90 mcg/actuation inhalation 07/17/22 09/15/24 Unknown History aerosol inhaler (ProAir HFA) fluoxetine 20 mg capsule 60 mg PO DAILY 07/17/22 01/29/25 Unknown History ibuprofen 600 mg tablet 600 mg PO TID 07/17/22 01/29/25 Unknown History losartan 50 mg tablet 50 mg PO DAILY 07/17/22 01/29/25 Unknown History sumatriptan succinate 100 mg tablet 100 mg PO DAILY PRN Headache 07/17/22 01/29/25 Unknown History benztropine 0.5 mg tablet 0.5 mg PO BID 01/09/23 01/29/25 Unknown History desvenlafaxine succinate 100 mg 200 mg PO DAILY 01/09/23 01/29/25 Unknown History tablet,extended release 24 hr rizatriptan 10 mg tablet 10 mg PO QD-BID migraine 01/09/23 01/29/25 Unknown History azelastine 137 mcg (0.1 %) nasal 2 spray intranasal BID 04/27/23 01/29/25 Unknown History spray ipratropium bromide 21 mcg (0.03 2 spray intranasal BID 04/27/23 01/29/25 Unknown History %) nasal spray mometasone-formoterol HFA 200 2 puff inhalation BID 04/27/23 01/29/25 Unknown History mcg-5 mcg/actuation aerosol inhaler (Dulera) olanzapine 20 mg tablet 20 mg PO DAILY 04/27/23 01/29/25 Unknown History trazodone 150 mg tablet 150 mg PO BEDTIME 04/27/23 01/29/25 Unknown History cholecalciferol (vitamin D3) 10 10 mcg PO DAILY 08/12/24 01/29/25 Unknown History mcg (400 unit) tablet (Vitamin D3) furosemide 40 mg tablet 40 mg PO DAILY 08/12/24 01/29/25 Unknown History gabapentin 800 mg tablet 800 mg PO TID 08/12/24 01/29/25 Unknown History lidocaine 5 % topical patch patch topical 08/12/24 09/15/24 Unknown History metoprolol tartrate 100 mg tablet 100 mg PO BID 08/12/24 01/29/25 Unknown History montelukast 10 mg tablet 10 mg PO DAILY 08/12/24 01/29/25 Unknown History thiamine HCl (vitamin B1) 100 mg 100 mg PO DAILY 08/12/24 01/29/25 Unknown History tablet Exam Height,Weight and Vital Signs: Height 5 ft 4 in Weight 210 lb Last Vital Signs Temp 97.9 F 01/29/25 11:57 Pulse 84 01/29/25 11:57 Resp 18 01/29/25 11:57 BP 122/82 01/29/25 11:57 Pulse Ox 99 01/29/25 11:57 O2 Del Method Room Air 01/29/25 11:57 Airway Mallampati Class: II TM Dist: >3cm Loose/Missing/Broken Teeth: No Heart: RRR Lungs: CTA Assessment and Plan Final Anesthetic Review Family History of Problems with Anesthesia: No History of Problems with Anesthesia: No NPO: No ASA Class: II Final Preanesthetic Review: No Changes in Pt Med Stat, Meds/Allgs Chart Reviewed, Consent Obtained/Reviewed and Anes Risks/Benef Reviewed Patient Risk: Intermediate Procedure Risk: Low Anesthetic Plan Anesthetic Plan: GA and TIVA Disposition: Standard PACU
--- NOTE | 2025-01-29 12:27 | MHC.SHP ---
Pre-Procedural Eval Section A - 24 Hr Update-Section A only Date of Service: 01/29/25 Section B - Complete if H&P > 30 days Chief Complaint: screening,constipation Details of Present Illness: Obesity, Class II, BMI 35-39.9, isolated Uterine fibroid Tendonitis Post-nasal drip Menorrhagia Carpal tunnel syndrome of right wrist Anxiety Anemia Cough Sleep apnea Asthma HTN (hypertension) Depression Surgical History Hx of colonoscopy History of esophagogastroduodenoscopy (EGD) [place] teeth removed Hx of section History of tubal ligation Allergies: Allergies Allergy/AdvReac Type Severity Reaction Status Date / Time Influenza Virus Vaccines AdvReac Wheezing Verified 01/29/25 11:59 Review of Systems Review of Systems Comment: Ten point ROS negative Exam Exam Comment: Gen appear: No acute distress HEENT: no icterus Chest: No overt resp distress Abd: soft, nontender, nondistended Psych: Stable affect, answering questions appropriately Neuro: A/Ox3 noted to move all extremities spontaneously Ext: no peripheral edema Plan Diagnosis/Plan: Unchanged I have reviewed the history and physical and performed a pertinent physical examination on my patient. No changes have occurred unless specified. Time Spent With Patient Time: Total time managing care of this patient today ____ minutes.
--- NOTE | 2025-01-29 12:53 | HO.ANESPROP2 ---
FORMERLY [facility] Active Problems Active Problems: All Active Problems Vulvovaginitis (Acute) Stress incontinence (Acute) Dysuria (Acute) Hemorrhoids (Acute) Diverticulosis (Acute) Chronic constipation (Acute) Encounter for screening colonoscopy (Acute) Well woman exam (Acute) Past Medical History Medical History Obesity, Class II, BMI 35-39.9, isolated Uterine fibroid Tendonitis Post-nasal drip Menorrhagia Carpal tunnel syndrome of right wrist Anxiety Anemia Cough Sleep apnea Asthma HTN (hypertension) Depression Family History Family History Mother Diverticulitis large intestine HTN (hypertension) Diabetes Father HTN (hypertension) Heart disease Family history of problems with anesthesia: No Surgical History Surgical History Hx of hysterectomy Hx of colonoscopy History of esophagogastroduodenoscopy (EGD) [place] teeth removed Hx of section History of tubal ligation History of Problems with Anesthesia: No Social History Social History Household Members: Spouse and Children Are you a primary behavioral health care manager to a significant other at home: No Do you presently have visiting nurse or other home services: No Alcohol intake: never Patient Tobacco Use Status: Never used Tobacco Have you been hit, kicked, punched, or otherwise hurt by someone within the past year? If so, by whom?: No Are you DNR?: No Advance Directives: No Advance Directives Information Provided: Yes Meds Allergies Allergy/AdvReac Type Severity Reaction Status Date / Time Influenza Virus Vaccines AdvReac Wheezing Verified 01/29/25 11:59 Active Medications: Current Medications Lactated Ringer's (Lr) 1,000 mls @ 80 mls/hr IVCONT .[id number] JOANNA Last Admin: 01/29/25 11:56 Dose: 80 mls/hr Naloxone HCl (Naloxone Hcl 0.4 Mg/Ml Vial) 0.04 mg IVPUSH Q5M PRN PRN Reason: Excessive sedation or RR < 8 Home Medications ?Medication ?Instructions ?Recorded ?Confirmed ?Last Taken ?Type citalopram 10 mg tablet 10 mg PO DAILY 12/19/21 01/29/25 Unknown History clotrimazole-betamethasone 1 1 appl topical BID 12/19/21 01/29/25 Unknown History %-0.05 % topical cream naproxen 375 mg tablet 375 mg PO BID PRN Pain 12/19/21 01/29/25 Unknown History albuterol sulfate 90 mcg/actuation inhalation 07/17/22 09/15/24 Unknown History aerosol inhaler (ProAir HFA) fluoxetine 20 mg capsule 60 mg PO DAILY 07/17/22 01/29/25 Unknown History ibuprofen 600 mg tablet 600 mg PO TID 07/17/22 01/29/25 Unknown History losartan 50 mg tablet 50 mg PO DAILY 07/17/22 01/29/25 Unknown History sumatriptan succinate 100 mg tablet 100 mg PO DAILY PRN Headache 07/17/22 01/29/25 Unknown History benztropine 0.5 mg tablet 0.5 mg PO BID 01/09/23 01/29/25 Unknown History desvenlafaxine succinate 100 mg 200 mg PO DAILY 01/09/23 01/29/25 Unknown History tablet,extended release 24 hr rizatriptan 10 mg tablet 10 mg PO QD-BID migraine 01/09/23 01/29/25 Unknown History azelastine 137 mcg (0.1 %) nasal 2 spray intranasal BID 04/27/23 01/29/25 Unknown History spray ipratropium bromide 21 mcg (0.03 2 spray intranasal BID 04/27/23 01/29/25 Unknown History %) nasal spray mometasone-formoterol HFA 200 2 puff inhalation BID 04/27/23 01/29/25 Unknown History mcg-5 mcg/actuation aerosol inhaler (Dulera) olanzapine 20 mg tablet 20 mg PO DAILY 04/27/23 01/29/25 Unknown History trazodone 150 mg tablet 150 mg PO BEDTIME 04/27/23 01/29/25 Unknown History cholecalciferol (vitamin D3) 10 10 mcg PO DAILY 08/12/24 01/29/25 Unknown History mcg (400 unit) tablet (Vitamin D3) furosemide 40 mg tablet 40 mg PO DAILY 08/12/24 01/29/25 Unknown History gabapentin 800 mg tablet 800 mg PO TID 08/12/24 01/29/25 Unknown History lidocaine 5 % topical patch patch topical 08/12/24 09/15/24 Unknown History metoprolol tartrate 100 mg tablet 100 mg PO BID 08/12/24 01/29/25 Unknown History montelukast 10 mg tablet 10 mg PO DAILY 08/12/24 01/29/25 Unknown History thiamine HCl (vitamin B1) 100 mg 100 mg PO DAILY 08/12/24 01/29/25 Unknown History tablet Exam Height,Weight and Vital Signs: Height 5 ft 4 in Weight 210 lb Last Vital Signs Temp 97.9 F 01/29/25 11:57 Pulse 84 01/29/25 11:57 Resp 18 01/29/25 11:57 BP 122/82 01/29/25 11:57 Pulse Ox 99 01/29/25 11:57 O2 Del Method Room Air 01/29/25 11:57 Airway Mallampati Class: III TM Dist: >3cm Neck ROM: Full Assessment and Plan Assessment Anesthesia Assessment: Anesthesia Plan Discussed and Chart Reviewed Final Anesthetic Review Family History of Problems with Anesthesia: No History of Problems with Anesthesia: No NPO: Yes ASA Class: III Final Preanesthetic Review: No Changes in Pt Med Stat, Meds/Allgs Chart Reviewed, Consent Obtained/Reviewed and Anes Risks/Benef Reviewed Patient Risk: Intermediate Procedure Risk: Low Anesthetic Plan Anesthetic Plan: TIVA Disposition: Standard PACU
--- NOTE | 2025-01-29 12:54 | P.OPN-COLO_ITS ---
Colonoscopy Operative Note Operative Note Date of Service: 01/29/25 Narrative: Procedure: Colonoscopy Indication: Screening Endoscopist: Jenna Mooney MD Anesthesia Provider: Parag Childs and Suze Vernon Anesthesia type: MAC Instrument: Olympus [id number]-[id number] Consent: Indication, risks vs benefits, and alternatives were discussed with the patient who gave written informed consent to proceed. An custody assistant was utilized to assist with the consent.EKG, pulse, pulse oximetry and blood pressure were monitored throughout the procedure. Please see anesthesia flowsheet. Procedure: A colo-wrap was placed on the lower abdomen in preop. The patient was brought to the procedure room and placed in the left lateral decubitus position. IV medications were administered by the anesthesia provider in attendance. A digital rectal exam was performed which was abnormal due to finding of hemorrhoids. A distal attachment cap was affixed to the tip of the colonoscope which was then inserted through the anus and advanced through the colon to the cecum at 75 cm and terminal ileum. Appendiceal orifice and ileocecal valve were identified. Mucosa was carefully examined under high definition white light as the instrument was slowly withdrawn in a retrograde panoramic fashion. Retroflexion was performed in rectum. The procedure was not difficult. There were no immediate obvious complications. The quality of the prep was BBPS: 2+1-2+3 = adequate Withdrawal time minutes. Limitations: No limitations. Findings: Mucosa: Normal to cecum and terminal ileum. Adherent liquid stool was present throughout the right colon, which was flushed off. Protruding lesions: * 1 sessile polyp of size 3 mm in cecum. Cold snare polypectomy was performed. The polyp was completely removed and retrieved. * Medium internal hemorrhoids without stigmata of recent bleeding. Excavated lesions: * Mild diverticulosis of sigmoid colon. Impression: 1. Normal colon mucosa 2. Total of 1 polyp removed 3. Diverticulosis 4. Hemorrhoids Recommendations: - Follow path results. - Repeat colonoscopy in 5-7 years due to quality of prep
--- NOTE | 2025-01-29 12:54 | HO.ANESPROP2 ---
FORMERLY [facility] Active Problems Active Problems: All Active Problems Vulvovaginitis (Acute) Stress incontinence (Acute) Dysuria (Acute) Hemorrhoids (Acute) Diverticulosis (Acute) Chronic constipation (Acute) Encounter for screening colonoscopy (Acute) Well woman exam (Acute) Past Medical History Medical History Obesity, Class II, BMI 35-39.9, isolated Uterine fibroid Tendonitis Post-nasal drip Menorrhagia Carpal tunnel syndrome of right wrist Anxiety Anemia Cough Sleep apnea Asthma HTN (hypertension) Depression Family History Family History Mother Diverticulitis large intestine HTN (hypertension) Diabetes Father HTN (hypertension) Heart disease Family history of problems with anesthesia: No Surgical History Surgical History Hx of hysterectomy Hx of colonoscopy History of esophagogastroduodenoscopy (EGD) [place] teeth removed Hx of section History of tubal ligation History of Problems with Anesthesia: No Social History Social History Household Members: Spouse and Children Are you a primary complex care nurse to a significant other at home: No Do you presently have visiting nurse or other home services: No Alcohol intake: never Patient Tobacco Use Status: Never used Tobacco Have you been hit, kicked, punched, or otherwise hurt by someone within the past year? If so, by whom?: No Are you DNR?: No Advance Directives: No Advance Directives Information Provided: Yes Meds Allergies Allergy/AdvReac Type Severity Reaction Status Date / Time Influenza Virus Vaccines AdvReac Wheezing Verified 01/29/25 11:59 Active Medications: Current Medications Lactated Ringer's (Lr) 1,000 mls @ 80 mls/hr IVCONT .[id number] JOANNA Last Admin: 01/29/25 11:56 Dose: 80 mls/hr Naloxone HCl (Naloxone Hcl 0.4 Mg/Ml Vial) 0.04 mg IVPUSH Q5M PRN PRN Reason: Excessive sedation or RR < 8 Home Medications ?Medication ?Instructions ?Recorded ?Confirmed ?Last Taken ?Type citalopram 10 mg tablet 10 mg PO DAILY 12/19/21 01/29/25 Unknown History clotrimazole-betamethasone 1 1 appl topical BID 12/19/21 01/29/25 Unknown History %-0.05 % topical cream naproxen 375 mg tablet 375 mg PO BID PRN Pain 12/19/21 01/29/25 Unknown History albuterol sulfate 90 mcg/actuation inhalation 07/17/22 09/15/24 Unknown History aerosol inhaler (ProAir HFA) fluoxetine 20 mg capsule 60 mg PO DAILY 07/17/22 01/29/25 Unknown History ibuprofen 600 mg tablet 600 mg PO TID 07/17/22 01/29/25 Unknown History losartan 50 mg tablet 50 mg PO DAILY 07/17/22 01/29/25 Unknown History sumatriptan succinate 100 mg tablet 100 mg PO DAILY PRN Headache 07/17/22 01/29/25 Unknown History benztropine 0.5 mg tablet 0.5 mg PO BID 01/09/23 01/29/25 Unknown History desvenlafaxine succinate 100 mg 200 mg PO DAILY 01/09/23 01/29/25 Unknown History tablet,extended release 24 hr rizatriptan 10 mg tablet 10 mg PO QD-BID migraine 01/09/23 01/29/25 Unknown History azelastine 137 mcg (0.1 %) nasal 2 spray intranasal BID 04/27/23 01/29/25 Unknown History spray ipratropium bromide 21 mcg (0.03 2 spray intranasal BID 04/27/23 01/29/25 Unknown History %) nasal spray mometasone-formoterol HFA 200 2 puff inhalation BID 04/27/23 01/29/25 Unknown History mcg-5 mcg/actuation aerosol inhaler (Dulera) olanzapine 20 mg tablet 20 mg PO DAILY 04/27/23 01/29/25 Unknown History trazodone 150 mg tablet 150 mg PO BEDTIME 04/27/23 01/29/25 Unknown History cholecalciferol (vitamin D3) 10 10 mcg PO DAILY 08/12/24 01/29/25 Unknown History mcg (400 unit) tablet (Vitamin D3) furosemide 40 mg tablet 40 mg PO DAILY 08/12/24 01/29/25 Unknown History gabapentin 800 mg tablet 800 mg PO TID 08/12/24 01/29/25 Unknown History lidocaine 5 % topical patch patch topical 08/12/24 09/15/24 Unknown History metoprolol tartrate 100 mg tablet 100 mg PO BID 08/12/24 01/29/25 Unknown History montelukast 10 mg tablet 10 mg PO DAILY 08/12/24 01/29/25 Unknown History thiamine HCl (vitamin B1) 100 mg 100 mg PO DAILY 08/12/24 01/29/25 Unknown History tablet Exam Height,Weight and Vital Signs: Height 5 ft 4 in Weight 95.254 kg Last Vital Signs Temp 97.9 F 01/29/25 11:57 Pulse 84 01/29/25 11:57 Resp 18 01/29/25 11:57 BP 122/82 01/29/25 11:57 Pulse Ox 99 01/29/25 11:57 O2 Del Method Room Air 01/29/25 11:57 Airway Mallampati Class: III TM Dist: >3cm Neck ROM: Full Assessment and Plan Assessment Anesthesia Assessment: Anesthesia Plan Discussed and Chart Reviewed Final Anesthetic Review Family History of Problems with Anesthesia: No History of Problems with Anesthesia: No NPO: Yes ASA Class: III Final Preanesthetic Review: No Changes in Pt Med Stat, Meds/Allgs Chart Reviewed, Consent Obtained/Reviewed and Anes Risks/Benef Reviewed Patient Risk: Intermediate Procedure Risk: Low Anesthetic Plan Anesthetic Plan: TIVA Disposition: Standard PACU
[2025-01-29 13:00] VITALS: BP 104/69; PULSE 78; RESP 16; TEMP 36.9; O2SAT 97
[2025-01-29 13:15] VITALS: BP 131/85; PULSE 71; RESP 16; TEMP 36.9; O2SAT 99
== END 2025-01-29 13:27 | disposition home or self-care (01) ==
PROVIDERS: PCP Internal Medicine; Visit Provider Internal Medicine
PROC: 0DJD8ZZ Inspection of Lower Intestinal Tract, Via Natural or Artificial Opening Endoscopic (ICD-10-PCS; CPT 45378; principal; 2025-01-29 12:30)
DX: Z12.11 Encounter for screening for malignant neoplasm of colon (principal); D12.0 Benign neoplasm of cecum; K57.30 Diverticulosis of large intestine without perforation or abscess without bleeding; K64.8 Other hemorrhoids; I10 Essential (primary) hypertension; D64.9 Anemia, unspecified; G47.30 Sleep apnea, unspecified; J45.909 Unspecified asthma, uncomplicated; E66.9 Obesity, unspecified; Z68.36 Body mass index [BMI] 36.0-36.9, adult; Z79.899 Other long term (current) drug therapy
CPT/HCPCS: 45385; 88305; J2003; J2704

== ENCOUNTER → 2025-01-29 11:11 | Outpatient (BNV) | payer OTHER, SELFPAY | PROVIDERS: PCP Internal Medicine; Visit Provider Internal Medicine | DX: Z12.11 Encounter for screening for malignant neoplasm of colon (principal); K63.5 Polyp of colon; K57.90 Diverticulosis of intestine, part unspecified, without perforation or abscess without bleeding; K64.8 Other hemorrhoids | CPT/HCPCS: 45385 ==

== ENCOUNTER 2025-02-11 15:28 | Outpatient (AMB) | payer OTHER, SELFPAY ==
--- NOTE | 2025-02-11 15:33 | MHC.OFFVIS ---
Vital Signs 02/11/25 15:36 Height 5 ft 4 in Weight 205 lb 0.478 oz BMI 35.2 BP 149/87 H Blood Pressure Location Lt brachial Position Sitting Pulse 76 Intake Visit Reasons: S/P [place]; Dr. Mooney Intake Note: Gia presents in the office as a follow up for her colonoscopy. CC: She states that she is having bad pains in the right side into her back on both sides. She is not having constipation or diarrhea. She states it is mostly the right flank side and she noticed a little bit of blood in her urine. Licensed Sales Producer Required: Yes Licensed Sales Producer Name: Ian [id number] Allergies Influenza Virus Vaccines Adverse Reaction (Verified 01/29/25 11:59) Wheezing HPI Comments Details: 49 y.o F with PMH obesity, HTN, CIC, here for follow up to discuss colo. Last colo 2022 was poor prep. So recommendation was to repeat a colo in a year. Rectal polyp removed was hyperplastic. Otherwise pt without any abd pain, diarrhea, blood in stool. No fam hx of CRC in FDRs. 01/29/25: 1. Normal colon mucosa 2. Total of 1 polyp removed 3. Diverticulosis 4. Hemorrhoids Path: Colon, cecum, polypectomy: Tubular adenoma; negative for high-grade dysplasia. 02/11/25: Pt here for post colo follow up but in visible distress. Has been having severe R sided back which is radiating to her L side since last night. Also reports blood in urine this morning. Doubling over in pain while shes here. No hx of kidney stones. No fevers, but chills + PFSH Medical History Obesity, Class II, BMI 35-39.9, isolated Uterine fibroid Tendonitis Post-nasal drip Menorrhagia Carpal tunnel syndrome of right wrist Anxiety Anemia Cough Sleep apnea Asthma HTN (hypertension) Depression Surgical History Hx of hysterectomy Hx of colonoscopy History of esophagogastroduodenoscopy (EGD) [place] teeth removed Hx of section History of tubal ligation Family History Mother Diverticulitis large intestine HTN (hypertension) Diabetes Father HTN (hypertension) Heart disease Social History Household Members: Spouse and Children Are you a primary post anesthesia care unit nurse to a significant other at home: No Do you presently have visiting nurse or other home services: No Alcohol intake: never Patient Tobacco Use Status: Never used Tobacco Female Reproductive History Menstrual Age of Menarche: 10 Review of Systems Const All systems reviewed & are unremarkable except as noted in HPI and below Physical Exam Vital Signs: Last Vital Signs Pulse 76 02/11/25 15:36 BP 149/87 H 02/11/25 15:36 BMI result Body Mass Index 35.2 In visible distress Nonicteric Abdomen soft, nondistended Severe tenderness to palpation in R CVAT with renal punch + Alert and oriented x3, normal gait Assessment & Plan Assessment & Plan (1) Acute right flank pain: Code(s): R10.9 - Unspecified abdominal pain Category: Medical (2) Dysuria: Code(s): R30.0 - Dysuria Category: Medical Plan Overall clinical presentation suspicious for nephrolithiasis. Pt wheeled down to ER - many thanks to OPAL Perez. Sign out given to ER charge manager over tigertext. Pt was also informed that colo with diverticulosis and 1 tubular adenoma. Repeat recommended in 7 years. Coding Level of Care Code Est Pt Level 4 (45709) Diagnoses Acute right flank pain R10.9 Dysuria R30.0
[2025-02-11 15:36] VITALS: BP 149/87; PULSE 76; BMI 35.2
--- OUTSIDE RECORDS SUMMARY | 2025-02-11 15:38 | XMS_ITS | Data Portability ---
Author Organization [place] - [facility], Allergy Address [address] [address] Care Team Providers Care Screen Repairer Crusher Name Role Phone ELIUD KHALIL Primary Care [...] Oil 0.01 % ear drops 2024 025 [facility] #[id number], [address] [place], [address], 16:34:40 Patient TargetsNo targets recorded. Patient InstructionsNo [...] and Address Organization Details Recorded Time Dysphagia 68275707 Active 2022 Dysphagi a, unspecif ied; Note: Date Diagnose d: 3 4:11 PM (R13.10) Not Available [facility] 4 03:20:12 Bilateral diffuse otitis externa [id number] 9102 Active 2022 Diffuse otitis externa, bilatera l; Note: Date Diagnose d: 3 4:11 PM (H60.313 ) Not Available [facility] 4 03:20:13 Cough 39548030 Active 2022 Cough, unspecif ied; Note: Date Diagnose d: 3 4:11 PM (R05.9) Not Available [facility] 4 03:20:12 Abnormal auditory perceptio n 80004348 Active 2024 Mercedes corbin [place] - [facility] [place] 5 16:07:24 Chronic otitis externa 76011452 Active 2024 MARCIA GONZALES MD [address] [place] [address], [facility] OP[place], [address] [facility] - [facility] [place] 5 16:33:38 Problem Notes None recorded. Procedures Surgical History Date Name Laterality Status Provider Name and Address Organization Details Recorded Time 12/09/2024 Comp Audio with Tymps - 52404 & 81916 completed Mercedes Mc [place] - [facility] 12/09/2024 16:07:17 Imaging Results None recorded. Procedure Notes None recorded. Medical Equipment None [...] mg tablet 12/09 completed Medicati on ID: [id number] B rand Name: emy hussein Send Method: [...] ne propionat e 50 mcg/actua tion nasal spray,[facility] active Medicati on ID: [id number] B rand Name: fluticas one propiona te [...] Available Not Avai lable Chlorasep tic Throat [place] 1.4 % aerosol 1 SPRAY BY MOUTH. [...] Available Not Available No t Available [employer] [place] Lite kit USE DIRECTED TO TEST BLOOD [...] Updated DateTime 12/09/2024 162.56 cm 35.7 kg/m2 01598.21 g [facility] 12/09/2024 16:21:46 Social History None recorded. Functional Status None recorded. Mental Status None recorded. Family History Nothing Reported. Medical History No medical history recorded. Gynecological HistoryNo gynecological history recorded. Obstetrics History GPAL:G 0 P 0 0 0 0 Past Encounters Encounter ID Performer Location Encounter Start Date Encounter Closed Date Diagnosis/Indication Diagnosis SNOMED-CT Code Diagnosis ICD10 Code Diagnosis Note [id number] MARCIA GONZALES MD [facility] [address] [address] 12/09/2024 15:41:10 12/09/2024 16:37:59 Abnormal auditory perception [id number] H93.299 Audiologic al evaluation results: Right ear: Normal Nor mal through 2 kHz Mild M oderate Mo derately-s evere Zulema re Profoun d [facility] normal hearing he aring. slo ping to a mild slopi ng to a moderate s loping to moderately severe slo ping to severe slo ping to profound f lat high frequency low frequency mid frequency cookie bite murillo curve hear ing with excellent word recognitio n. Left ear: Normal hearing with excellent word recognitio n. Tympanomet ry: Right Ear:Type A Left Ear:Type A Chronic ot itis externa 43533031 H60.63 Health Concerns Section Related Observation LastModified by Organization Detai ls LastModified Time None Recorded Concern Status LastModified by Organization Details LastModified Time None Recorded Advance Directives Directive None Recorded Payers Insurance Date Sequence Insurance Name Policy Number Policy Shah Covered Member ID Shah Member ID Guarantor Name 12/09/2024 1 [facility] - DOS ON OR AFTER 2022 - ONE CARE (MEDICARE REPLACEMENT/ADV ANTAGE - HMO) Gia L Hillary Keating [id number] Gia L Hillary Keating 12/09/2024 2 [employer] - [facility] [place]/ADV ANTAGE - HMO) Gia L Hillary Keating [id number] Gia L Hillary Keating Notes Date Note Type Note Provider Name and Address Organization Details Recorded Time 12/09/2024 text/html Ipad - [employer] [id number] had severe otalgia in [place] and had ear cleaningno sig hx of noise exposure additionally itchy earsno previous trial of medications PV 01/08/24 Santosh dysphagia, mod ba swallow normal. no intervention. MARCIA GONZALES MD [address] [place] [address], [id number], [facility] - [facility] 12/09/2024 16:35:57 OBGyn Episode No OBEpisode recorded.
== END 2025-02-11 16:07 | disposition home or self-care (01) ==
LOC: HO.HGI 15:29
PROVIDERS: PCP Internal Medicine; Visit Provider Internal Medicine
DX: R10.9 Unspecified abdominal pain (principal); R30.0 Dysuria
CPT/HCPCS: 99214

== ENCOUNTER → 2025-02-11 15:28 | Outpatient (BNVA) | payer OTHER, SELFPAY | PROVIDERS: PCP Internal Medicine; Visit Provider Internal Medicine ==

== ENCOUNTER 2025-02-11 15:59 | Emergency (ER) | payer OTHER, SELFPAY ==
[2025-02-11 16:06] VITALS: BP 140/89; PULSE 82; RESP 20; TEMP 36.7; O2SAT 99; BMI 35.7
--- NOTE | 2025-02-11 16:08 | ED.GENADULT ---
HPI - General Adult General Chief complaint: Urogenital-Female Stated complaint: R flank pain Related Data Home Medications ?Medication ?Instructions ?Recorded ?Confirmed citalopram 10 mg tablet 10 mg PO DAILY 12/19/21 01/29/25 clotrimazole-betamethasone 1 1 appl topical BID 12/19/21 01/29/25 %-0.05 % topical cream naproxen 375 mg tablet 375 mg PO BID PRN Pain 12/19/21 01/29/25 albuterol sulfate 90 mcg/actuation inhalation 07/17/22 09/15/24 aerosol inhaler (ProAir HFA) fluoxetine 20 mg capsule 60 mg PO DAILY 07/17/22 01/29/25 ibuprofen 600 mg tablet 600 mg PO TID 07/17/22 01/29/25 losartan 50 mg tablet 50 mg PO DAILY 07/17/22 01/29/25 sumatriptan succinate 100 mg tablet 100 mg PO DAILY PRN Headache 07/17/22 01/29/25 benztropine 0.5 mg tablet 0.5 mg PO BID 01/09/23 01/29/25 desvenlafaxine succinate 100 mg 200 mg PO DAILY 01/09/23 01/29/25 tablet,extended release 24 hr rizatriptan 10 mg tablet 10 mg PO QD-BID migraine 01/09/23 01/29/25 azelastine 137 mcg (0.1 %) nasal 2 spray intranasal BID 04/27/23 01/29/25 spray ipratropium bromide 21 mcg (0.03 2 spray intranasal BID 04/27/23 01/29/25 %) nasal spray mometasone-formoterol HFA 200 2 puff inhalation BID 04/27/23 01/29/25 mcg-5 mcg/actuation aerosol inhaler (Dulera) olanzapine 20 mg tablet 20 mg PO DAILY 04/27/23 01/29/25 trazodone 150 mg tablet 150 mg PO BEDTIME 04/27/23 01/29/25 cholecalciferol (vitamin D3) 10 10 mcg PO DAILY 08/12/24 01/29/25 mcg (400 unit) tablet (Vitamin D3) furosemide 40 mg tablet 40 mg PO DAILY 08/12/24 01/29/25 gabapentin 800 mg tablet 800 mg PO TID 12/03/24 05/22/25 lidocaine 5 % topical patch patch topical 08/12/24 09/15/24 metoprolol tartrate 100 mg tablet 100 mg PO BID 08/12/24 01/29/25 montelukast 10 mg tablet 10 mg PO DAILY 08/12/24 01/29/25 thiamine HCl (vitamin B1) 100 mg 100 mg PO DAILY 08/12/24 01/29/25 tablet Previous Rx's ?Medication ?Instructions ?Recorded docusate sodium 100 mg capsule 200 mg (2 x 100 mg) PO BEDTIME #60 05/17/23 (Colace) caps bisacodyl 10 mg rectal suppository 10 mg [place] DAILY PRN constipation 08/12/24 (Dulcolax (bisacodyl)) #20 ea bisacodyl 5 mg tablet,delayed 10 mg (2 x 5 mg) PO BID 2 days #8 08/12/24 release tabs terconazole 0.8 % vaginal cream 1 appful vaginal BEDTIME 3 days 08/12/24 #20 grams estradiol 0.01% (0.1 mg/gram) See Rx Instructions vaginal 3XW 90 09/15/24 vaginal cream days #42.5 grams Allergies Allergy/AdvReac Type Severity Reaction Status Date / Time Influenza Virus Vaccines AdvReac Wheezing Verified 02/11/25 16:07 [facility] Past Medical History Medical History Obesity, Class II, BMI 35-39.9, isolated Uterine fibroid Tendonitis Post-nasal drip Menorrhagia Carpal tunnel syndrome of right wrist Anxiety Anemia Cough Sleep apnea Asthma HTN (hypertension) Depression Surgical History Hx of hysterectomy Hx of colonoscopy History of esophagogastroduodenoscopy (EGD) [place] teeth removed Hx of section History of tubal ligation Family History Family History Mother Diverticulitis large intestine HTN (hypertension) Diabetes Father HTN (hypertension) Heart disease Social History Social History Household Members: Spouse and Children Are you a primary acute care certified nursing assistant to a significant other at home: No Do you presently have visiting nurse or other home services: No Alcohol intake: never Patient Tobacco Use Status: Never used Tobacco Advance Directives: No Advance Directives Information Provided: No Physical Exam ED Vital Signs: Vital Signs - 24 hr 02/11/25 16:06 Temperature 98.1 F Pulse Rate 82 Respiratory Rate 20 Blood Pressure 140/89 H Pulse Oximetry 99 Oxygen Delivery Method Room Air BMI result Body Mass Index 35.7 Course Course Course Narrative: 02/11/25 1609 ALESSIA Mejia This is a Rapid Medical Examination (RME) performed by Per Justice PA-C in triage. Full HPI, ROS, assessment and treatment plan per primary provider in the Main ED. Hx: 49 yo F hx obesity, uterine fibroid, menorrhagia status post hysterectomy 2 years ago, carpal tunnel, anxiety, sleep apnea, asthma, hypertension, and depression here for eval of right flank pain and hematuria since this morning. flank pain radiates to abdomen. no hx renal stones. PE/vitals: uncomfortable appearing Plan: labs, UA Reevaluation(s) Reevaluation #1: Patient left the emergency department before myself or any of the other clinicians could review or explain physical exam findings, test results, need or lack there of for additional testing, treatment options, or a treatment plan. Medical Decision Making Lab Data 02/11/25 16:26 02/11/25 16:26 Labs: Lab Results 02/11/25 Range/Units 16:26 WBC 7.4 (4.8-10.8) X10*3/uL RBC 4.92 (4.20-5.50) X10*6/uL Hgb 13.4 (12.0-16.0) g/dl Hct 41.5 (37.0-47.0) % MCV 84.3 (80.0-98.0) fL MCH 27.2 (27.0-33.0) pg MCHC 32.3 (31.0-35.0) g/dl RDW 14.5 (11.0-16.0) % Plt Count 236 (160-400) X10*3/uL MPV 10.2 (9.4-12.3) fL Immature Gran % (Auto) 0.4 (0.0-0.4) % Neut % (Auto) 69.4 (45-73) % Lymph % (Auto) 22.8 (20-40) % [place] % (Auto) 5.8 (2-11) % Eos % (Auto) 1.2 (0-4) % Baso % (Auto) 0.4 (0-2) % Lymph # (Auto) 1.7 (1.2-4.9) X10*3/uL [place] # (Auto) 0.4 (0.1-1.2) X10*3/uL Eos # (Auto) 0.1 (0.0-0.4) X10*3/uL Baso # (Auto) 0.0 (0.0-0.2) X10*3/uL Abs Immat Gran (auto) 0.03 (0.00-0.03) X10*3/uL Absolute Neuts (auto) 5.1 (2.0-8.3) x10*3/uL Absolute Nucleated RBC 0.000 (0.0-0.012) X10*3/uL Nucleated RBC % (auto) 0.0 (0.0-0.2) /100WBC Sodium 144 (135-145) mmol/L Potassium 3.9 (3.3-5.1) mmol/L Chloride 106 (96-108) mmol/L Carbon Dioxide 30 H (22-29) mmol/L Anion Gap 12 (12-20) BUN 15 (9-16) mg/dL Creatinine 0.82 (0.5-1.4) mg/dL Estim Creat Clear Calc 91.4 Estimated GFR > 60 Random Glucose 132 H (60-115) mg/dL Calcium 9.7 (8.4-10.2) mg/dL Magnesium 2.2 (1.6-2.6) mg/dL Total Bilirubin 0.2 (0.0-1.0) mg/dL AST 21 (5-31) U/L ALT 36 H (0-31) U/L Alkaline Phosphatase 67 (39-117) U/L Total Protein 7.4 (6.5-8.0) g/dL Albumin 4.0 (3.5-5.0) g/dL Lipase 22 (8-78) U/L Discharge Plan Discharge Clinical Impression: Flank pain Patient Disposition: Left W/O Completing Treatment Prescriptions: No Action benztropine 0.5 mg tablet 0.5 mg PO BID rizatriptan 10 mg tablet 10 mg PO QD-BID desvenlafaxine succinate 100 mg tablet extended release 24 hr 200 mg PO DAILY trazodone 150 mg Tablet 150 mg PO BEDTIME azelastine 137 mcg (0.1 %) Aerosol,[place] 2 spray INTRANASAL BID Rx Instructions: administer into each nostril ipratropium bromide 21 mcg (0.03 %) [place],Non-Aerosol 2 spray INTRANASAL BID Rx Instructions: administer into each nostril Dulera 200-5 mcg/actuation Hfa Aerosol Inhaler 2 puff INHALATION BID olanzapine 20 mg Tablet 20 mg PO DAILY naproxen 375 mg tablet 375 mg PO BID PRN (Reason: Pain) citalopram 10 mg tablet 10 mg PO DAILY clotrimazole-betamethasone 1-0.05 % cream 1 appl topical BID sumatriptan succinate 100 mg tablet 100 mg PO DAILY PRN (Reason: Headache) ibuprofen 600 mg tablet 600 mg PO TID fluoxetine 20 mg capsule 60 mg PO DAILY losartan 50 mg tablet 50 mg PO DAILY albuterol sulfate [ProAir HFA] 90 mcg/actuation HFA aerosol inhaler inhalation docusate sodium [Colace] 100 mg capsule 200 mg PO BEDTIME Qty: 60 5RF gabapentin 800 mg tablet 800 mg PO TID thiamine HCl (vitamin B1) 100 mg tablet 100 mg PO DAILY lidocaine 5 % adhesive patch,medicated topical cholecalciferol (vitamin D3) [Vitamin D3] 10 mcg (400 unit) tablet 10 mcg PO DAILY montelukast 10 mg tablet 10 mg PO DAILY metoprolol tartrate 100 mg tablet 100 mg PO BID furosemide 40 mg tablet 40 mg PO DAILY bisacodyl [Dulcolax (bisacodyl)] 10 mg suppository 10 mg [place] DAILY PRN (Reason: constipation) Qty: 20 2RF bisacodyl 5 mg tablet,delayed release (DR/EC) 10 mg PO BID 2 Days Qty: 8 0RF Rx Instructions: To start 2 days before colonoscopy estradiol 0.01 % (0.1 mg/gram) cream See Rx Instructions vaginal 3XW 90 Days Qty: 42.5 2RF Rx Instructions: pea sized amount to urethra 3 times a week terconazole 0.8 % cream 1 appful vaginal BEDTIME 3 Days Qty: 20 0RF Discharge Date/Time: 02/11/25 20:00
[2025-02-11 16:31] LABS: MANUAL DIFF FLAG NO
[2025-02-11 16:39] LABS: Basophils Percent Auto 0.4 % (0-2); Eosinophils Absolute Auto 0.1 X10*3/uL (0.0-0.4); Eosinophils Percent Auto 1.2 % (0-4); Hematocrit 41.5 % (37.0-47.0); Hemoglobin 13.4 g/dl (12.0-16.0); Imm Gran Abs Auto 0.03 X10*3/uL (0.00-0.03); Imm Gran Pct Auto 0.4 % (0.0-0.4); Lymphocytes Absolute Auto 1.7 X10*3/uL (1.2-4.9); Lymphocytes Percent Auto 22.8 % (20-40); Mean Corpuscular HGB Conc 32.3 g/dl (31.0-35.0); Mean Corpuscular Hemoglobin 27.2 pg (27.0-33.0); Mean Corpuscular Volume 84.3 fL (80.0-98.0); Mean Platelet Volume 10.2 fL (9.4-12.3); Monocytes Absolute Auto 0.4 X10*3/uL (0.1-1.2); Monocytes Percent Auto 5.8 % (2-11); Neutrophils Absolute Auto 5.1 x10*3/uL (2.0-8.3); Neutrophils Percent Auto 69.4 % (45-73); Platelet Count 236 X10*3/uL (160-400); Red Blood Count 4.92 X10*6/uL (4.20-5.50); Red Cell Distribution Width 14.5 % (11.0-16.0); White Blood Count 7.4 X10*3/uL (4.8-10.8)
[2025-02-11 17:02] LABS: Alanine Aminotransferase 36 U/L (0-31); Alkaline Phosphatase 67 U/L (39-117); Anion Gap 12 (12-20); Aspartate Amino Transferase 21 U/L (5-31); Bilirubin Total 0.2 mg/dL (0.0-1.0); Blood Urea Nitrogen 15 mg/dL (9-16); Calcium 9.7 mg/dL (8.4-10.2); Carbon Dioxide 30 mmol/L (22-29); Chloride 106 mmol/L (96-108); Creatinine Clr Calc Pharmacy 91.4; Estimated Glomerular Filt Rate > 60; Glucose Random 132 mg/dL (60-115); Lipase 22 U/L (8-78); Magnesium 2.2 mg/dL (1.6-2.6); Potassium 3.9 mmol/L (3.3-5.1); Sodium 144 mmol/L (135-145); Total Protein 7.4 g/dL (6.5-8.0)
== END 2025-02-11 20:00 | disposition left against medical advice (07) ==
LOC: HO.ED 19:54
PROVIDERS: Physician Assistant Medical; Emergency Provider Emergency Medicine; PCP Internal Medicine
DX: R10.9 Unspecified abdominal pain (principal); R30.0 Dysuria; Z53.21 Procedure and treatment not carried out due to patient leaving prior to being seen by health care provider
CPT/HCPCS: 36415; 80053; 83690; 83735; 85025; 99212; 99281; 99283; 99284

== ENCOUNTER 2025-03-16 10:27 | Outpatient (AMB) | payer OTHER, SELFPAY ==
--- NOTE | 2025-03-16 10:29 | MHC.OFFVIS ---
Intake Visit Reasons: 6m follow up Intake Note: Patient presents today for follow up on : Dysuria and incontinence Urology Medications: Estrace Cream Allergies to Antibiotic: none Blood Thinner: none PVR: 0ml's Restaurant Area Director Required: Yes Restaurant Area Director Services: Restaurant Area Director Present Restaurant Area Director Name: Dottie [id number] Accompanied by: Self / Same As Patient Allergies Influenza Virus Vaccines Adverse Reaction (Verified 03/16/25 11:26) Wheezing Medication List - Last Reconciled 03/16/25 by MAYRA Gipson- albuterol sulfate 90 mcg/actuation (ProAir HFA) inhalation azelastine 2 sprays intranasal BID benztropine 0.5 mg PO BID bisacodyl (Dulcolax (bisacodyl)) 10 mg [place] DAILY PRN bisacodyl 10 mg (2 x 5 mg) PO BID 2 days cholecalciferol (vitamin D3) (Vitamin D3) 10 mcg PO DAILY citalopram 10 mg PO DAILY clotrimazole-betamethasone 1-0.05 % 1 appl topical BID desvenlafaxine succinate ER 200 mg PO DAILY docusate sodium (Colace) 200 mg (2 x 100 mg) PO BEDTIME estradiol 0.01%(0.1mg/gram) pea sized amount to urethra 3 times a week 90 days fluoxetine 60 mg PO DAILY furosemide 40 mg PO DAILY gabapentin 800 mg PO TID ibuprofen 600 mg PO TID ipratropium bromide 2 sprays intranasal BID lidocaine 5% patches topical losartan 50 mg PO DAILY metoprolol tartrate 100 mg PO BID mometasone-formoterol 200-5 mcg/actuation (Dulera) 2 puffs inhalation BID montelukast 10 mg PO DAILY naproxen 375 mg PO BID PRN olanzapine 20 mg PO DAILY rizatriptan 10 mg PO QD-BID sumatriptan succinate 100 mg PO DAILY PRN terconazole 0.8% 1 appful vaginal BEDTIME 3 days thiamine HCl (vitamin B1) 100 mg PO DAILY trazodone 150 mg PO BEDTIME HPI Comments Details: Gia is a very pleasant 49-year-old Russian-speaking female patient of Dr. Romero. She has a past medical history of obesity, uterine fibroid, menorrhagia status post hysterectomy 2 years ago, carpal tunnel, anxiety, sleep apnea, asthma, hypertension, and depression. She presents to the office today for follow-up. In discussion with the patient today she reports to be doing and feeling well. She reports compliance with Estrace cream as prescribed. She discusses having followed up with electrolog operator for her ongoing vaginal pruritus she has been experiencing. She reports she was prescribed a cream and feels this has been helpful. She discusses her recent cholecystectomy for gallstones and is enquiring renal ultrasound to be performed as she believes she also has kidney stones. We discussed most recent imaging 05/03 retroperitoneal ultrasound noting the kidneys are normal in size, contour, and echogenicity. No calculi, lesions, and or hydronephrosis noted. The bladder is well distended and normal. Bladder jets are demonstrated. Pre void bladder volume is approximately 250 mL. Postvoid bladder volume is approximately 6 mL. She otherwise denies any bothersome urinary issues. She denies urinary urgency, urinary frequency, nocturia, hematuria, dysuria, foul smelling urine, changes to urinary stream, flank pain, fever, and or chills. She is happy with her current voiding parameters. She does report episodes of stress incontinence however is not enquiring further workup as she feels she is self managing these symptoms independently. In office urinalysis results reviewed with the patient today. PVR 0 mL. She otherwise offers no other issues or concerns at this time. [facility] Medical History Obesity, Class II, BMI 35-39.9, isolated Uterine fibroid Tendonitis Post-nasal drip Menorrhagia Carpal tunnel syndrome of right wrist Anxiety Anemia Cough Sleep apnea Asthma HTN (hypertension) Depression Surgical History Hx of hysterectomy Hx of colonoscopy History of esophagogastroduodenoscopy (EGD) [place] teeth removed Hx of section History of tubal ligation Family History Mother Diverticulitis large intestine HTN (hypertension) Diabetes Father HTN (hypertension) Heart disease Social History Household Members: Spouse and Children Are you a primary career coach to a significant other at home: No Do you presently have visiting nurse or other home services: No Alcohol intake: never Patient Tobacco Use Status: Never used Tobacco Female Reproductive History Menstrual Age of Menarche: 10 Review of Systems Const Reports no additional complaints Eyes Reports no additional complaints ENT Reports no additional complaints Card Reports as per [facility] Resp Reports as per [facility] GI Reports no additional complaints Reports as per [facility] Musc Reports as per [facility] Neuro Reports as per [facility] Psych Reports as per [facility] Endo Reports no additional complaints Sheng/Lymph Reports no additional complaints Aller/Immun Reports no additional complaints Physical Exam Const General: cooperative, healthy appearing, comfortable, no acute distress, well developed, alert, awake and Physically active Nutritional Appearance: overweight Orientation/consciousness: patient oriented x3 Limitations: no limitations HEENT Head: Yes normal to inspection, Yes normocephalic and Yes atraumatic Ears: hearing grossly normal bilaterally Eyes General: appearance normal, both eyes and all related structures Neck Neck: Yes normal visual inspection and Yes trachea midline Chest Chest palpation & inspection: normal inspection of the chest Resp Effort & Inspection: able to speak in complete sentences Cardio Rate: regular rate GI Inspection: Yes normal to inspection General: Yes no CVA tenderness Back/Spine/Pelvis Back: no CVA tenderness Skin General skin exam: no rashes or lesions noted Neuro General: patient oriented x3 Extrem General: Yes normal to inspection Psych Appearance: grossly normal and well kempt Mental Status: mental status grossly normal Speech and movement: Clear speech present Affect: normal affect Attitude: cooperative Thought process: Normal thought process present Thought content: Normal thought content present Insight: Fair insight present (Psych) Judgement: Fair judgement present (Psych) Office Procedures Post Void Residual Post Residual Void Post Void Residual (PVR): 0 [id number] Void Residual by ultrasound Results AMB Urinalysis, Automated UA Leukoctes 0 Ryan/uL Last Edit by Floresita White CCM on 03/16/25 10:51 UA Nitrite Last Edit by Floresita White [facility] on 03/16/25 10:51 UA Urobilinogen 0.2 mg/dL Last Edit by Floresita White [facility] on 03/16/25 10:51 UA Protein 0 mg/dL Last Edit by Floresita White [facility] on 03/16/25 10:51 UA pH 8.0 Last Edit by Floresita White [facility] on 03/16/25 10:51 UA Blood 0 Reymundo/uL Last Edit by PIEDAD Jackson on 03/16/25 10:51 UA Specific [place] 1.010 Last Edit by PIEDAD Jackson on 03/16/25 10:51 UA Ketone Last Edit by Floresita White [facility] on 03/16/25 10:51 UA Bilirubin 0 mg/dL Last Edit by Floresita White [facility] on 03/16/25 10:51 UA Glucose 0 mg/dL Last Edit by Floresita White [facility] on 03/16/25 10:51 Results Reviewed Results Reviewed: Laboratory Last Values Urine pH (Auto) 8.0 03/16/25 10:34 Specific [place] (Auto) 1.010 03/16/25 10:34 Urine Protein (Auto) 0 mg/dL 03/16/25 10:34 Glucose (UA)(Auto) 0 mg/dL 03/16/25 10:34 Urine Blood (Auto) 0 Reymundo/uL 03/16/25 10:34 Urine Bilirubin (Auto) 0 mg/dL 03/16/25 10:34 Urine Urobilinogen (Auto) 0.2 mg/dL 03/16/25 10:34 Leukocyte Esterase (Auto) 0 Ryan/uL 03/16/25 10:34 Assessment & Plan Assessment & Plan (1) Stress incontinence: Code(s): N39.3 - Stress incontinence (female) (male) Category: Medical (2) Dysuria: Code(s): R30.0 - Dysuria Category: Medical Plan In office urinalysis results with the patient today; as noted above. PVR 0 mL. Continue Estrace cream as discussed and prescribed. Will obtain renal ultrasound for further assessment evaluation. She currently denies any bothersome urinary issues She reports be happy with current voiding parameters. Follow-up in 1-3 months with imaging to be completed prior; or sooner with any issues, concerns, and or questions. Orders: Orders AMB Urinalysis Automated Today Z13.9 - Encounter for screening, unspecified AMB Post Void Residual by ultrasound Today N39.3 - Stress incontinence (female) (male) US renal BI Today N20.0 - Calculus of kidney Patient Instructions: The patient had an opportunity to ask questions regarding the treatment plan. All questions were answered. Physical exam, labs, and imaging were discussed and reviewed in detail. As well as risks, benefits, and discussion of treatment choices. No major barriers to understanding were identified. The patient expressed understanding and agreement with the above treatment plan. The patient was made aware they should contact our office by phone for worsening of their current condition, the appearance of new symptoms, or with any questions or concerns. Compliance is encouraged with any medications and follow up testing that is ordered. It is a privilege to be allowed the opportunity to participate in? your urological care.? Again, if you have any questions or concerns If you have any questions or concerns please do not hesitate to contact me. The office is [phone]. This note is constructed using voice recognition software. While every effort has been made to ensure accuracy alarm investigator errors may have been included. Yours sincerely, CASSANDRA Gipson Coding Level of Care Code Est Pt Level 3 (05079) Diagnoses Stress incontinence N39.3 Dysuria R30.0 CPT Codes Post Residual Void - PVR CPT Code: 52622-Suit Void Residual by ultrasound ([id number])
--- OUTSIDE RECORDS SUMMARY | 2025-03-16 11:18 | XMS_ITS | Data Portability ---
Author Organization [place] - [facility], Allergy Address [address] [address] Care Team Providers Care Billposting Supervisor Name Role Phone ELIUD KHALIL Primary Care [...] Oil 0.01 % ear drops 2024 025 [id number], [address] [place], [address], 16:34:40 Patient TargetsNo targets recorded. Patient InstructionsNo [...] and Address Organization Details Recorded Time Dysphagia 56089405 Active 2022 Dysphagi a, unspecif ied; Note: Date Diagnose d: 3 4:11 PM (R13.10) Not Available [facility] 4 03:20:12 Bilateral diffuse otitis externa 764530049941 9102 Active 2022 Diffuse otitis externa, bilatera l; Note: Date Diagnose d: 3 4:11 PM (H60.313 ) Not Available [facility] 4 03:20:13 Cough 61791990 Active 2022 Cough, unspecif ied; Note: Date Diagnose d: 3 4:11 PM (R05.9) Not Available [facility] 4 03:20:12 Abnormal auditory perceptio n 58130429 Active 2024 Mercedes corbin [place] - [facility] [place] [facility] 5 16:07:24 Chronic otitis externa 25251037 Active 2024 MARCIA GONZALES MD [address] [place] [address], [facility] [place], [address] [facility] [place] - [facility] [place] [facility] 5 16:33:38 Problem Notes None recorded. Procedures Surgical History Date Name Laterality Status Provider Name and Address Organization Details Recorded Time 12/09/2024 Comp Audio with Tymps - 11857 & 27111 completed Mercedes Mc [place] - [facility] 12/09/2024 16:07:17 Imaging Results None recorded. Procedure [...] mg tablet 12/09 completed Medicati on ID: [id number] B rand Name: emy hussein Send Method: [...] propionat e 50 mcg/actua tion nasal spray,jose pension active Medicati on ID: [id number] B rand Name: fluticas one propiona te [...] Available Not Avai lable Chlorasep tic Throat [place] 1.4 % aerosol 1 SPRAY BY MOUTH. [...] Available Not Available No t Available FreeStyle [place] Lite kit USE DIRECTED TO TEST BLOOD [...] Updated DateTime 12/09/2024 162.56 cm 35.7 kg/m2 11441.21 g [facility] 12/09/2024 16:21:46 Social History None recorded. Functional Status None recorded. Mental Status None recorded. Family History Nothing Reported. Medical History No medical history recorded. Gynecological HistoryNo gynecological history recorded. Obstetrics History GPAL:G 0 P 0 0 0 0 Past Encounters Encounter ID Performer Location Encounter Start Date Encounter Closed Date Diagnosis/Indication Diagnosis SNOMED-CT Code Diagnosis ICD10 Code Diagnosis Note [id number] MARCIA GONZALES MD [facility] [address] [address] 12/09/2024 15:41:10 12/09/2024 16:37:59 Abnormal auditory perception 20552318 H93.299 Audiologic al evaluation results: Right ear: Essentiall y normal hearing with excellent word recognitio n. Left ear: Normal hearing with excellent word recognitio n. Tympanomet ry: Right Ear:Type A Left Ear:Type A Chronic ot itis externa 52826268 H60.63 Health Concerns Section Related Observation LastModified by Organization Detai ls LastModified Time None Recorded Concern Status LastModified by Organization Details LastModified Time None Recorded Advance Directives Directive None Recorded Payers Insurance Date Sequence Insurance Name Policy Number Policy Shah Covered Member ID Shah Member ID Guarantor Name 12/09/2024 1 [facility] - DOS ON OR AFTER 2022 - ONE CARE (MEDICARE REPLACEMENT/ADV ANTAGE - HMO) Gia L Hillary Keating [id number] Gia L Hillary Keating 12/09/2024 2 [employer] - [facility] [place]/ADV ANTAGE - HMO) Gia L Hillary Keating [id number] Gia L Hillary Keating Notes Date Note Type Note Provider Name and Address Organization Details Recorded Time 12/09/2024 text/html Ipad - Spanishhearing [id number] had severe otalgia in [place] and had ear cleaningno sig hx of noise exposure additionally itchy earsno previous trial of medications PV 01/08/24 Santosh dysphagia, mod ba swallow normal. no intervention. MARCIA GONZALES MD [address] [place] [address], [phone], [facility] - [facility] 12/09/2024 16:35:57 OBGyn Episode No OBEpisode recorded.
--- OUTSIDE RECORDS SUMMARY | 2025-03-16 11:18 | XMS_ITS | Patient Health Record ---
Author Organization [facility] Address [address] [place] [address] Care Team Providers Care Dining Service Inspector Name Role Phone Heather TATE, Danny Primary Care Provider Farzana Walton Unavailable [phone] Reason For Referral No Information Medications Medication [...] Negative Encounters Encounter [facility] Date [facility] [address] 12/25/[address] [facility] [address] [place] [address] 12/17/[address] [facility] [address] [place] [address] 12/18/2024 [facility] [address] [place] [address] 12/24/2024 Farzana Pruett Plan Of Treatment Next Appt Details Provider Name:Farzana Pruett , 03/24/2025 01:00:00 PM, [address] [place], [place], [address], Insurance Providers Payer Name Payer Address Payer Phone Subscriber Number Group Number Insured Name Patient Relationship to Insured Coverage Start Date Coverage End Date [facility] [employer] Claims [address] ALESSIA [place] [id number] Gia Eddy Self - patient is the insured Medical (General) History Medical History History ICD Code Depression Anxiety Insomnia HTN DM VIT D. DEF FIBROIDS +RF SENT TO RHEUM HX SUICIDE ATTEMPT - OD 2014 GANGLION CYST R WRIST ALLERGIC RHINITIS ANEMIA GI AND HEME Surgical History Surgery Date(Month/Year) colonoscopy 2022
--- OUTSIDE RECORDS SUMMARY | 2025-03-16 11:18 | XMS_ITS | Clinical Summary ---
Author Organization [employer] Address [address] [facility] 7t [place] [address] Care Team Providers Care Retail Management Keyholder Name Role Phone Unavailable Primary Care Provider [...] Vaccines (1 of 2) 2024 COVID-19 Vaccine (1 - 2023- season) 2024 Dental Oral Exam 09/19/2024 03/18/2024, , 07/04/2022, Additional history exists Dental Prophylaxis 09/19/2024 03/18/2024, 0 03/22/2023, 07/04/2022, Additional history exists Dental X-Ray: Bitewings 03/19/2025 03/18/20 24, 07/04/2022, 01/21/2021, Additional history exists Influenza Vaccine (#1) 2025 Tobacco Screening 06/12/2025 06/12/2024 RSV Patients and [...] Most Recently Relevant to Health Maintenance Insurance [facility] [address] [place] [id number] [facility]
--- OUTSIDE RECORDS SUMMARY | 2025-03-16 11:18 | XMS_ITS | Encounter Summary ---
Author Organization [facility] Address [address] [place] [address] Care Team Providers Care Finished Cigar Maker Name Role Phone Danny Romero DO Primary Care Provider [phone] Encounter Details Date Type Department Care Team (Late Contact Info) Description 02/04/2025 Lab Requisition [facility] - Main Lab [address] [facility] [address] Dina Alexander NP [address] [address] Dysuria; Frequency of micturition; Pruritus vulvae Social History Tobacco Use Types Packs/Day Years Used Date Smoking Tobacco: Never Smokeless Tobacco: Never Alcohol Use Standard Drinks/Week Comments No 0 (1 standard drink = 0.6 oz pur e alcohol) Comments Unknown Sex and Gender Information Value Date Recorded Sex Assigned at Not on file Legal Sex Female 5:08 AM EST Gender Identity Not on file Sexual Orientation Not on file documented as of this encounter Plan of Treatment Upcoming Encounters Date Type Department Care Team (Late st Contact Info) Description 05/19/2025 9:30 AM EDT Consult Bariatric Surgery - [place] [address] [address] Flor Brantley PA 175 [facility] [address] [place] [address] documented as of this encounter Procedures Procedure Name Priority Date/Time Associated Diagnosis Comments URINALYSIS WITH REFLEX MICROSCOPIC Routine 02/04/2025 3:51 PM EDT Dysuria Frequency of micturition Pruritus vulvae URINALYSIS WITH REFLEX MICROSCOPIC Routine 02/04/2025 3:51 PM EDT Dysuria Frequency of micturition Pruritus vulvae VAGINITIS PATHOGENS BY PCR Routine 02/04/2025 3:51 PM EDT Dysuria Frequency of micturition Pruritus vulvae CULTURE URINE Routine 02/04/2025 3:51 PM EDT Dysuria Frequency of micturition Pruritus vulvae documented in this encounter Results * Vaginitis pathogens molecular study (02/04/2025 3:51 PM EDT) Pathologist [facility] Trichomonas vaginalis Negative Negative 02/05/2025 12:05 PM EDT [facility] Gardnerella vaginalis Negative Negative 02/05/2025 12:05 PM EDT [facility] Suad Species Negative Negative 12:05 PM EDT [facility] Swab Vaginal structure / Unknown 02/04/2025 3:51 PM EDT 02/04/2025 7:22 PM EDT us Arroyo Alexander CHIEF CREW SCHEDULER LAB MICROBIOLOGY - GENERAL ORDER HOLLY Final Result [facility] [address] [place] [address], * (ABNORMAL) Urinalysis with reflex microscopic (02/04/2025 3:51 PM EDT) Pathologist [facility] Specific Raven Urine 1.031(H) 1.003 - 1.030 LAB URINALYSIS - AUTOMATED METHOD 02/04/2025 7:36 PM EDT [facility] pH, Urine 5.5 5.0 - 8.0 pH LAB URINALYSIS - AUTOMATED METHOD 02/04/2025 7:36 PM EDT [facility] Leukocytes, Urine Negative Negative LAB URINALYSIS - AUTOMATED METHOD 02/04/2025 7:36 PM EDT [facility] Nitrite, Urine Negative Negative LAB URINALYSIS - AUTOMATED METHOD 02/04/2025 7:36 PM EDT [facility] Protein, Urine Negative <=Trace mg/dL LAB URINALYSIS - AUTOMATED METHOD 02/04/2025 7:36 PM EDT [facility] Glucose, Urine Negative Negative mg/dL LAB URINALYSIS - AUTOMATED METHOD 02/04/2025 7:36 PM T [facility] Ketones, Urine Trace(A) Negative mg/dL LAB URINALYSIS - AUTOMATED METHOD 02/04/2025 7:36 PM T [facility] Urobilinogen, Urine 1.0 0.2 - 1.0 mg/dL LAB URINALYSIS - AUTOMATED METHOD 02/04/2025 7:36 PM EDT [facility] Bilirubin, Urine Negative Negative LAB URINALYSIS - AUTOMATED METHOD 02/04/2025 7:36 PM EDT [facility] Blood, Urine Negative Negative LAB URINALYSIS - AUTOMATED METHOD 02/04/2025 7:36 PM T [facility] Urine Urine specimen obtained by clean catch procedure / Unknown 02/04/2025 3:51 PM EDT 02/04/2025 7:22 PM EDT us Arroyo Alexander CHIEF CREW SCHEDULER LAB URINE ORDERABLES Final Resul t [facility] [address] [place] [address], * Culture urine (02/04/2025 3:51 PM EDT) Culture, Urine No growth 02/05/2025 2:06 PM EDT [facility] Urine Urine specimen obtained by clean catch procedure / Unknown 02/04/2025 3:51 PM EDT 02/04/2025 7:22 PM EDT us Arroyo Alexander CHIEF CREW SCHEDULER LAB MICROBIOLOGY - GENERAL ORDER HOLLY Final Result [facility] [address] [place] [address], documented in this encounter Visit Diagnoses Diagnosis Dysuria Frequency of micturition Urinary frequency Pruritus vulvae Pruritus of genital organs documented in this encounter Care Teams Finished Cigar Maker Relationship Specialty Start Date End Date Danny Romero DO [address] [place] [phone] PCP - General Internal Medicine 12/25/18 documented as of this encounter
--- OUTSIDE RECORDS SUMMARY | 2025-03-16 11:18 | XMS_ITS | Clinical Summary ---
Author Organization [facility] Address [address] [place] [address] Care Team Providers Care Plant Etiologist Name Role Phone Danny Romero DO Primary Care Provider [phone] Allergies No known active allergies Medications Medication [...] 93 02/25/2020 11:18 AM EDT Temperature 36.9 C (98.4 F) 02/25/2020 11:18 AM EDT Respiratory Rate - - Oxygen Saturation 98% [...] (1 of 2) 2024 Influenza Vaccine (#1) 2025 RSV Ped < 20 months Aged Out No longe r eligible based on patient's age to complete this topic Care Teams Plant Etiologist Relationship Specialty Start Date End Date Danny Romero DO [address] [place] [id number] PCP - General Internal Medicine 11/16/17
== END 2025-03-16 11:34 | disposition home or self-care (01) ==
LOC: HO.HUSH 10:28
PROVIDERS: PCP Internal Medicine; Visit Provider Nurse Practitioner Family
DX: N39.3 Stress incontinence (female) (male) (principal); R30.0 Dysuria; Z13.9 Encounter for screening, unspecified
CPT/HCPCS: 99213

== ENCOUNTER → 2025-03-16 10:27 | Outpatient (BNVA) | payer OTHER, SELFPAY | PROVIDERS: PCP Internal Medicine; Visit Provider Nurse Practitioner Family | DX: N39.3 Stress incontinence (female) (male) (principal); N20.0 Calculus of kidney; R30.0 Dysuria | CPT/HCPCS: 51798; 81003; 99212 ==

== ENCOUNTER → 2025-05-28 10:00 | Outpatient (BNV) | payer OTHER, SELFPAY | PROVIDERS: PCP Internal Medicine; Visit Provider Internal Medicine | DX: Z12.31 Encounter for screening mammogram for malignant neoplasm of breast (principal) | CPT/HCPCS: 77063; 77067 ==

== ENCOUNTER 2025-05-28 10:04 | Outpatient (REF) | payer OTHER, SELFPAY ==
--- OUTSIDE RECORDS SUMMARY | 2024-12-24 09:00 | XMS_ITS ---
[facility] Jeremy [facility]by [place] Address [address] [place] [address] Care Team Providers Care Cook Jelly Name Role Phone Danny Romero MD Primary Care Provider Farzana Walton Unavailable [phone] Medications Medication SIG (Take, Route, Fr equency, [...] Negative Encounters Encounter Location Date Provider Diagnosis [facility] [address] [place] [address] 12/24/2024 Farzana Pruett Plan Of Treatment Next Appt Details Provider Name:Farzana Pruett , 06/24/2025 09:00:00 AM, [address] [place], [address], Progress Notes * Hitesh MIRB:10/1974 (50 yo F)Acc No.[id number]:12/24/2024 Progress Notes Patient: Gia CHADWICK Provider: Larry Pruett DPM :1975 A ge:49 Y S ex:Female Date:12/24/2024 Address:[address] [place], [place] [id number] Pcp:Danny Romero MD Subjective: * Chief Complaints: [...] enies. C ardiovascular: Pacemaker d enies. M PROFESSOR OF GEOLOGY d enies. W PW d enies. C [...] 0 12/24/2024 Generated for Girma jacob/Ayden/Reilly on: 0 05/28/2025 11:53 AM EDT
--- OUTSIDE RECORDS SUMMARY | 2025-05-25 15:00 | XMS_ITS | Encounter Summary ---
Author Organization [employer] Address [address] [place] [address] 7[address] [place] [address] Care Team Providers Care Inspector Rubber Stamp Die Name Role Phone Unavailable Primary Care Provider Unavailabl e Reason for Visit * Reason Comments Consult Encounter Details Date Type Department Care Team ([facility] st Contact Info) Description 05/25/2025 3:00 PM EDT Office Visit [facility] ADULT DENTAL [address] [place] [address] Ciro Jimenez DDS [address] [place] [address] Fractured dental scientologist without loss of material (Primary Dx) Social History Tobacco Use Types Packs/Day Years Used Date Smoking Tobacco: Never Passive Smoke Exposure: Never Smokeless Tobacco: Never Alcohol Use Standard Drinks/Week Comments Never 0 (1 standard drink = 0.6 oz pur e alcohol) Comments Unknown Sex and Gender Information Value Date Recorded Sex Assigned at Female 07/10/2022 10:30 AM EDT Legal Sex Female 10:30 AM EDT Gender Identity Female 08/21/2023 9:25 AM EST Sexual Orientation Choose not to disclose 2021 10:30 AM EDT documented as of this encounter Last Filed Vital Signs Vital Sign Reading Time Taken Comments Blood Pressure 128/72 05/25/2025 3:20 PM EDT Pulse 68 05/25/2025 3:20 PM EDT Temperature - - Respiratory Rate - - Oxygen Saturation - - Inhaled Oxygen Concentration - - Weight - - Height - - Body Mass Index - - documented in this encounter Progress Notes * Ciro Jimenez DDS - 05/25/2025 3:00 PM EDT Dental procedures in this visit D0140 - LIMITED ORAL EVALUATION - PROBLEM FOCUSED (Completed) Service provider: Ciro Jimenez DDS Billing provider: Ciro Jimenez DDS [id number] - CASE PRESENTATION, DETAILED AND EXTENSIVE TREATMENT PLANNING (Completed) Service provider: Ciro Jimenez DDS Billing provider: Ciro Jimenez DDS Patient ID: Gia Thornton is a 50 y.o. female. Time Out: Timeout Date: 05/25/25, Timeout Time: 1517 (composite) Location: [facility] Tooth: Mandible and #30 Procedure: Exam Verified the above with patient, supply assistant, and provider. Confirmed via patient's chart, intraorally and by radiographs. After School Program Teacher: not applicable Chief Complaint Patient presents with Consult Medical Hx: Vitals: Blood pressure 128/72, pulse 68. Medical History[1] Medications: Encounter Medications[2] Subjective: Pain: not present Duration: N/A Objective: Tooth: #30 Radiographs Taken: Used existing Radiographic Findings: Fractured/Missing Filling Clinical Findings: Fractured scientologist Swelling: No Endo Testing: No Perio: NSF Other Findings: Pt wanting to try with amalgam, she is aware that it may need full crown with RCT Diagnosis: Fractured scientologist Assessment/Plan: EOE No X rays taken today Schedule for amalgam # 30 Prescriptions: No Pt tolerated procedure well, all questions answered. Dismissed in good condition. NV: Amalgam # 30 Order Processor: Adelaida Villegas Dentist: Ciro Jimenez DDS [1] Past Medical History: Diagnosis Date Acute carpal tunnel syndrome of right wrist Arthritis Asthma Back pain Hypertension [2] Outpatient Encounter Medications as of 05/25/2025 Medication Sig Dispense Refill albuterol (2.5 MG/3ML) 0.083% nebulizer solution INHALE 1 AMPULE USING A NEBULIZER EVERY 6 HOURS ASNEEDED FOR WHEEZING OR SHORTNESS OF BREATH Azelastine HCl 137 MCG/SPRAY solution Administer 2 sprays into each nostril in the morning. benztropine (Cogentin) 0.5 MG tablet Take 0.5 mg by mouth with breakfast and with evening meal. Caplyta 42 MG capsule Take 1 capsule by mouth in the morning. Dulera 200-5 MCG/ACT inhaler INHALE 2 PUFFS BY MOUTH TWICE DAILY RINSE MOUTH AFTER USING. fluticasone (Flonase) 50 MCG/ACT nasal spray Administer 1 spray into each nostril in the morning. gabapentin (Neurontin) 600 MG tablet Take 600 mg by mouth 3 times daily. losartan (Cozaar) 50 MG tablet Take 50 mg by mouth Once per day. metoprolol tartrate (Lopressor) 100 MG tablet Take 100 mg by mouth with breakfast and with evening meal. montelukast (Singulair) 10 MG tablet Take 10 mg by mouth Once per day. omeprazole (PriLOSEC) [address] capsule Take 40 mg by mouth Once per day. oxyCODONE (Roxicodone) 5 MG immediate release tablet TAKE 1/2 TABLET BY MOUTH EVERY 6 HOURS FOR 3 DAYS NEEDED FOR PAIN rizatriptan (Maxalt) 10 MG tablet TAKE 1 TABLET BY MOUTH AT ONSET OF MIGRAINE. MAY REPEAT ONCE AFTER 2 HOURS IF NEEDED. DO NOT EXCEED 2 DOSES IN 24 HOURS. traZODone (Desyrel) 150 MG tablet TAKE 2 TABLETS BY MOUTH EVERY DAY AT BEDTIME Vraylar 6 MG capsule TAKE 1 CAPSULE BY MOUTH DAILY IN THE MORNING Xarelto 20 MG tablet TAKE 1 TABLET BY MOUTH EVERY DAY WITH FOOD No facility-administered encounter medications on file as of 05/25/2025. documented in this encounter Plan of Treatment Upcoming Encounters Date Type Department Care Team (Late st Contact Info) Description 06/16/2025 10:00 AM EDT Office Visit [facility] ADULT DENTAL [address] [place] [address] Ciro Jimenez DDS [address] [place] [address] 07/28/2025 3:30 PM EST Office Visit [facility] OPTOMETRY [address] [place] [address] Gabriela Blandon, OD [address] [place] [address] 10/01/2025 10:15 AM EST Office Visit [facility] ADULT DENTAL [address] [place] [address] Marci Tyson [address] [place] [address] Scheduled Orders Name Type Priority Associated Diagnoses Orde r Schedule 30 30 AMALGAM - 3 SURF, PRIMARY OR PERMANENT Dental Routine [address] arting 05/25/2025 documented as of this encounter Procedures Procedure Name Priority Date/Time Associated Diagnosis Comments LIMITED ORAL EVALUATION - PROBLEM FOCUSED Routine 05/25/2025 3:00 PM EDT CASE PRESENTATION, DETAILED AND EXTENSIVE TREATMENT PLANNING Routine 05/25/2025 3:00 PM EDT documented in this encounter Visit Diagnoses Diagnosis Fractured dental scientologist without loss of material- Primary Fractured dental restorative material without loss of material documented in this encounter
--- OUTSIDE RECORDS SUMMARY | 2025-05-28 11:53 | XMS_ITS | Encounter Summary ---
Author Organization [facility] Address [address] [place] [address] Care Team Providers Care Inspector Elevators Name Role Phone Danny Romero DO Primary Care Provider [phone] Encounter Details Date Type Department Care Team (Late st Contact Info) Description 02/04/2025 Lab Requisition [facility] - Main Lab [address] [facility] [place] [phone] Dina Alexander NP [address] [place] [phone] Dysuria; Frequency of micturition; Pruritus vulvae Social [...] on file documented as of this encounter Procedures Procedure [...] pathogens molecular study (02/04/2025 3:51 PM EDT) Trichomonas vaginalis Negative Negative 02/05/2025 12:05 PM EDT [facility] Gardnerella vaginalis Negative Negative 02/05/2025 12:05 PM EDT [facility] Suad Species Negative Negative 12:05 PM EDT [facility] Swab Vaginal structure / Unknown 02/04/2025 3:51 PM EDT 02/04/2025 7:22 PM EDT us Arroyo Alexander COCOA BEAN CLEANER LAB MICROBIOLOGY - GENERAL ORDER HOLLY Final Result [facility] [address] [place] [address], [place] [phone] * (ABNORMAL) Urinalysis with reflex microscopic (02/04/2025 3:51 PM EDT) Pathologist [facility] Specific [place] Urine 1.031(H) 1.003 - 1.030 LAB URINALYSIS - AUTOMATED METHOD 02/04/2025 7:36 PM EDT [facility] pH, Urine 5.5 5.0 - 8.0 pH LAB URINALYSIS - AUTOMATED METHOD 02/04/2025 7:36 PM EDT [facility] Leukocytes, Urine Negative Negative LAB URINALYSIS - AUTOMATED METHOD 02/04/2025 7:36 PM EDT [facility] Nitrite, Urine Negative Negative LAB URINALYSIS - AUTOMATED METHOD 02/04/2025 7:36 PM EDT [facility] Protein, Urine Negative <=Trace mg/dL LAB URINALYSIS - AUTOMATED METHOD 02/04/2025 7:36 PM EDT [facility] Glucose, Urine Negative Negative mg/dL LAB URINALYSIS - AUTOMATED METHOD 02/04/2025 7:36 PM EDT [facility] Ketones, Urine Trace(A) Negative mg/dL LAB URINALYSIS - AUTOMATED METHOD 02/04/2025 7:36 PM EDT [facility] Urobilinogen, Urine 1.0 0.2 - 1.0 mg/dL LAB URINALYSIS - AUTOMATED METHOD 02/04/2025 7:36 PM EDT [facility] Bilirubin, Urine Negative Negative LAB URINALYSIS - AUTOMATED METHOD 02/04/2025 7:36 PM EDT [facility] Blood, Urine Negative Negative LAB URINALYSIS - AUTOMATED METHOD 02/04/2025 7:36 PM EDT [facility] Urine Urine specimen obtained by clean catch procedure / Unknown 02/04/2025 3:51 PM EDT 02/04/2025 7:22 PM EDT us Arroyo Alexander COCOA BEAN CLEANER LAB URINE ORDERABLES Final Resul t Performing Organization Address City/[facility]/ZIP Co de Phone Number [facility] [address] [place] [address], [place] [phone] * Culture urine (02/04/2025 3:51 PM EDT) Culture, Urine No growth 02/05/2025 2:06 PM EDT [facility] Urine Urine specimen obtained by clean catch procedure / Unknown 02/04/2025 3:51 PM EDT 02/04/2025 7:22 PM EDT us Arroyo Alexander COCOA BEAN CLEANER LAB MICROBIOLOGY - GENERAL ORDER HOLLY Final Result Performing Organization Address City/[facility]/ZIP Co de Phone Number [facility] [address] [place] [address], [place] [phone] documented in this encounter Visit Diagnoses Diagnosis Dysuria Frequency of micturition Urinary frequency Pruritus vulvae Pruritus of genital organs documented in this encounter Care Teams Inspector Elevators Relationship Specialty Start Date End Date Danny Romero DO [address] [place] [phone] PCP - General Internal Medicine 12/25/18 documented as of this encounter
--- OUTSIDE RECORDS SUMMARY | 2025-05-28 11:53 | XMS_ITS | Clinical Summary ---
Author Organization [employer] Address [address] [facility] 7t [place] [address] Care Team Providers Care Cardiac Rehab Nurse Name Role Phone Unavailable Primary Care Provider [...] HOURS FOR 3 DAYS NEEDED FOR PAIN Active omeprazole (PriLOSEC) [address] capsule Take 40 mg by mouth Once per day. Active montelukast (Singulair) 10 MG tablet Take 10 mg by mouth Once per day. Active metoprolol tartrate (Lopressor) 100 MG tablet Take 100 mg by mouth with breakfast and with evening meal. Active losartan (Cozaar) 50 MG tablet Take 50 mg by mouth Once per day. 4 Active Active Problems Problem Noted Date Diagnosed Date Fractured dental jain without loss of mat erial 05/25/2025 Dental caries on smooth surface limited to ename l 08/24/2023 Dental plaque 03/22/2023 Encounters Date Type Department Care Team Description 05/25/2025 3:00 PM EDT Office Visit [facility] ADULT DENTAL [address] [place] [address] Ciro Jimenez DDS Fractured dental jain without loss of material (Primary Dx) 03/25/2025 2:30 PM EDT Office Visit [facility] ADULT DENTAL [address] [place] [address] Ciro Jimenez DDS Dental caries on smooth surface limited to enamel (Primary Dx); Fractured dental jain without loss of material; Tooth erosion 03/18/2025 3:00 PM EDT Office Visit [facility] ADULT DENTAL [address] [place] [address] Marci Tyson Fractured dental jain without loss of material (Primary Dx); Tooth erosion; Dental plaque from Last 3 Months Social History Tobacco Use Types Packs/Day Years [...] Mass Index - - Plan of Treatment Upcoming Encounters Date Type Department Care Team (Late st Contact Info) Description 06/16/2025 10:00 AM EDT Office Visit [facility] ADULT DENTAL [address] [place] [address] Ciro Jimenez, DDS [address] [place] [address] 07/28/2025 3:30 PM EST Office Visit [facility] OPTOMETRY [address] [place] [address] BarberGabriela lucas, OD [address] [place] [address] 10/01/2025 10:15 AM EST Office Visit [facility] ADULT DENTAL [address] [place] [address] Marbella, Marci [address] [place] [address] Health Maintenance Due Date Last Done Comments [...] Cancer Screening 2004 HPV/Cotest 2004 Mammogram 2014 Zoster Vaccines (1 of 2) 2024 COVID-19 Vaccine ( - season) 2025 Influenza Vaccine (#1) 2025 Dental Oral Exam 09/19/2025 03/18/2025, 05/2024, 03/22/2023, Additional history exists Dental Prophylaxis 09/19/2025 03/18/2025, 0 03/18/2024, 03/22/2023, Additional history exists Dental X-Ray: Bitewings 03/19/2026 03/18/20 25, 03/18/2024, 07/04/2022, Additional history exists Tobacco Screening 05/25/2026 05/25/2025 Dental X-Ray: Full Mouth 03/19/2028 025, 01/21/2021, 07/06/2016 RSV Patients and Patients Aged 60 years [...] TREATMENT PLANNING Routine 05/25/2025 3:00 PM EDT CASE PRESENTATION, DETAILED AND EXTENSIVE TREATMENT PLANNING Routine 03/25/2025 2:30 PM EDT 20 O RESIN-BASED COMPOSITE - 1 SURF, POSTERIOR Routine 03/25/2025 2:30 PM EDT Tooth erosion 29 O RESIN-BASED COMPOSITE - 1 SURF, POSTERIOR Routine 03/25/2025 2:30 PM EDT Tooth erosion 28 O RESIN-BASED COMPOSITE - 1 SURF, POSTERIOR Routine 03/25/2025 2:30 PM EDT Tooth erosion 30 DB RESIN-BASED COMPOSITE - 2 SURF, POSTERIOR Routine 03/25/2025 2:30 PM EDT Fractured dental jain without loss of material COMPREHENSIVE PERIODONTAL EVALUATION - NEW OR ESTABLISHED PATIENT Routine 03/18/2025 3:00 PM EDT PERIODIC ORAL EVALUATION - ESTABLISHED PATIENT Routine 03/18/2025 3:00 PM EDT CASE PRESENTATION, DETAILED AND EXTENSIVE TREATMENT PLANNING Routine 03/18/2025 3:00 PM EDT Fractured dental jain without loss of material Tooth erosion Dental plaque ORAL HYGIENE INSTRUCTIONS Routine 2024 3:00 PM EDT Fractured dental jain without loss of material Tooth erosion Dental plaque INTRAORAL - COMPLETE SERIES OF RADIOGRAPHIC IMAGES Routine 03/18/2025 3:00 PM EDT Fractured dental jain without loss of material Tooth erosion Dental plaque PROPHYLAXIS - ADULT Routine 03/18/2025 3 :00 PM EDT Dental plaque from Last 3 Months Insurance [facility] [address] [place] [id number] DENTAL [facility]
--- OUTSIDE RECORDS SUMMARY | 2025-05-28 11:53 | XMS_ITS | Clinical Summary ---
Author Organization [facility] Address [address] [place] [address] Care Team Providers Care Multimedia Editor Name Role Phone Danny Romero DO Primary Care Provider [phone] Allergies No known active allergies Medications Medication [...] age to complete this topic Care Teams Multimedia Editor Relationship Specialty Start Date End Date Danny Romero DO [address] [place] [id number] PCP - General Internal Medicine 11/16/17
--- OUTSIDE RECORDS SUMMARY | 2025-05-28 11:53 | XMS_ITS | Encounter Summary ---
Author Organization [employer] Address [address] [facility] 7t [place] [address] Care Team Providers Care Group Captain Name Role Phone Gabriela Blandon OD Primary Care Provider [phone] Encounter Details Date Type Department Care Team (Latest Contact Info) Description 07/04/2022 Abstract [facility] CONVERSIONS Dental, Provider, DDS Social History Tobacco [...] Description 06/16/2025 10:00 AM EDT Office Visit [facility] ADULT DENTAL [address] [place] [address] Ciro Jimenez, DDS [address] [place] [address] 07/28/2025 3:30 PM EST Office Visit [facility] OPTOMETRY [address] [place] [address] Gabriela Blandon, OD [address] [place] [address] 10/01/2025 10:15 AM EST Office Visit [facility] ADULT DENTAL [address] [place] [address] Marci Tyson [address] [place] [address] documented as of this encounter Visit Diagnoses Not on filedocumented in this encounter Care Teams Group Captain Relationship Specialty Start Date End Date Gabriela Blandon OD [address] [place] [phone] PCP - General Optometry 09/18/19 09/16/23 documented as of this encounter
--- OUTSIDE RECORDS SUMMARY | 2025-05-28 11:53 | XMS_ITS | Encounter Summary ---
Author Organization [employer] Address [address] [facility] 7t [place] [address] Care Team Providers Care Oracle R12 Developer Name Role Phone Gabriela Blandon OD Primary Care Provider [phone] Encounter Details Date Type Department Care Team (Latest Contact Info) Description 01/21/2021 Abstract [facility] CONVERSIONS Dental, Provider, DDS Social History Tobacco [...] Description 06/16/2025 10:00 AM EDT Office Visit [facility] ADULT DENTAL [address] [place] [address] Ciro Jimenez, DDS [address] [place] [address] 07/28/2025 3:30 PM EST Office Visit [facility] OPTOMETRY [address] [place] [address] Gabriela Blandon, OD [address] [place] [address] 10/01/2025 10:15 AM EST Office Visit [facility] ADULT DENTAL [address] [place] [address] Marci Tyson [address] [place] [address] documented as of this encounter Visit Diagnoses Not on filedocumented in this encounter Care Teams Oracle R12 Developer Relationship Specialty Start Date End Date Gabriela Blandon OD [address] [place] [phone] PCP - General Optometry 09/18/19 09/16/23 documented as of this encounter
--- OUTSIDE RECORDS SUMMARY | 2025-05-28 11:53 | XMS_ITS | Patient Health Record ---
Author Organization [facility] colby Crabtree Address [address] [place] [address] Care Team Providers Care Low Emission Automobile Designer Name Role Phone Heather TATE, Danny Primary Care Provider Franky Pruett Farzana Unavailable [phone] Allergies Allergen (clinical drug ingredient) Drug/Non Drug Allergy documented on EMR Reaction Allergy Type Onset Date Status Flu Virus Vaccine Bronchial asthma Drug Allergy Active Results Component Value Reference Range Notes X ray : Foot, left 3V Reviewed date:03/24/2025 04:31:47 PM Interpretation:See Examination above Performing Lab: Notes/Report: See Examination above X ray : Foot, right 3V Reviewed date:03/24/2025 04:31:56 PM Interpretation:See Examination above Performing Lab: Notes/Report: See Examination above Reason For Referral No Information Medications Medication SIG (Take, Route, Fr equency, Duration) Notes Start Date End Date Status Docusate Sodium Acti ve Hydrocortisone Activ e Omeprazole Active Vraylar Active Albuterol Sulfate Ac tive Flovent HFA Active Cetirizine HCl Activ e SEROquel Active Lidocaine Active Gabapentin Active Cyclobenzaprine HCl Active OLANZapine Active ProAir HFA Active Cogentin Active FreeStyle Lite Test Active Custom Orthotics as directed 03/24/2025 Active traZODone HCl Active Fluoxetine Active Latuda Active Chloraseptic Active Fluticasone Propionate Active Custom Orthotics as directed 03/24/2025 Active Phenol Active Social History Tobacco Use: Social History [...] ast year? No Points 0 Interpretation Negative Problems Problem Type SNOMED Code ICD Code Onset Dates Problem Status W/U Status Risk Notes Problem Acquired hammer toe of right foot (0011787358898 105) Hammer toe of right foot (M20.41) Active confirmed Problem Acquired hammer toe of left foot (4418180107971 103) Hammer toe of left foot (M20.42) Active confirmed Vital Signs Heart Rate 86 /min 03/24/2025 Blood pressure diastolic 89 R mm Hg 03/24/2025 Height 5ft 4in in 03/24/2025 Blood pressure systolic 137 mm Hg 03/24/2025 Weight 208 lbs 03/24/2025 BMI 35.7 kg/m2 03/24/2025 Encounters Encounter Location Date Provider Diagnosis [address] [address] 03/24/2025 Farzana Black Pain in left foot M79.672 ; Metatarsalgia of left foot M77.42 ; Pain in left ankle and joints of left foot M25.572 ; Bursitis of intermetatarsal bursa of left foot M77.52 ; Pain in right foot M79.671 ; Pain in right ankle and joints of right foot M25.571 ; Bursitis of intermetatarsal bursa of right foot M77.51 ; Metatarsalgia, right foot M77.41 ; Hammer toe of right foot M20.41 and Hammer toe of left foot M20.[address] [address] 12/25/2024 Farzana Flynn [address] [address] [facility] [address] 12/18/2024 Farzana Flynn [address] [address] 12/24/2024 Farzana Black Assessments Encounter Date Diagnosis (ICD Code) Assessment Notes Treatment Notes Treatment Clinical Notes Section Notes 03/24/2025 Pain in left foot (ICD-10 - M79.672) 03/24/2025 Metatarsalgia of left foot (ICD-10 - M77.42) 03/24/2025 Pain in left ankle and joints of left foot (ICD-10 - M25.572) 03/24/2025 Bursitis of intermetatarsal bursa of left foot (ICD-10 - M77.52) 03/24/2025 Pain in right foot (ICD-10 - M79.671) 03/24/2025 Pain in right ankle and joints of right foot (ICD-10 - M25.571) 03/24/2025 Bursitis of intermetatarsal bursa of right foot (ICD-10 - M77.51) 03/24/2025 Metatarsalgia, right foot (ICD-10 - M77.41) 03/24/2025 Hammer toe of right foot (ICD-10 - M20.41) 03/24/2025 Hammer toe of left foot (ICD-10 - M20.42) Plan Of Treatment Next Appt Details Provider Name:Farzana Pruett , 06/24/2025 09:00:00 AM, [address] [facility], [place], [address], Insurance Providers Payer Name Payer Address Payer Phone Subscriber Number Group Number Insured Name Patient Relationship to Insured Coverage Start Date Coverage End Date [facility] SCO Claims [address] ALESS[place] Garrett [id number] Gia Eddy Self - patient is the insured Medical (General) History Medical History History ICD Code Depression Anxiety Insomnia HTN DM VIT D. DEF FIBROIDS +RF SENT TO [facility] HX SUICIDE ATTEMPT - OD 2014 GANGLION CYST R WRIST ALLERGIC RHINITIS ANEMIA GI AND HEME Surgical History Surgery Date(Month/Year) colonoscopy 2022 Gallbladder 02/13/25
--- OUTSIDE RECORDS SUMMARY | 2025-05-28 11:53 | XMS_ITS | Clinical Summary ---
Author Organization [address] Address [address] [place] [address] Phone Care Team Providers Care Mailroom Personnel Name Role Phone Danny Romero DO Primary Care Provider [phone] Surgical History Surgery Date Site/Laterality Comments SECTION PROCEDURE: HISTORICAL DELIVERY SECTION PROCEDURE: SECTION Medical History Medical History Date Comments Asthma DX:Asthma Depression DX:Depression Anxiety DX:Anxiety Anemia DX:Anemia HTN (hypertension) DX:HTN (hyper tension) Carpal tunnel syndrome of right wrist DX:Carpal tunnel syndrome of right wrist Severe obesity (BMI 35.0-39. 9) with comorbidity (CMS/[facility] V24, [facility] V28) 04/22/2019 DX:Severe obesi ty (BMI 35.0- 39.9) with comorbidity ([facility]); COMMENT: Hypertension Anemia DX:Anemia Depression DX:Depression Anxiety DX:Anxiety Insomnia DX:Insomnia Hypertension DX:Hypertension Vitamin D deficiency DX:Vitamin D deficiency Fibroids DX:Fibroids Allergic rhinitis DX:Allergic rh initis Anemia of unknown etiology 11/16/2017 DX:An emia of unknown etiology Suicide attempt (CMS/[facility] V24 , [facility] V28) 2014 DX:Suicide attempt ([facility]) Obesity DX:Obesity Diabetes mellitus (CMS/[facility] V 24, [facility] V28) DX:Diabetes mellitus ([facility]);COMMENT:Not on medication Family History Medical History Relation [...] on file Obstetrics History Plan of Treatment Health Maintenance Due Date Last Done Comments Breast Cancer Screening 1974 DTaP,Tdap,and Td Vaccines (1 - Tdap) 1993 Hepatitis B Vaccines (1 of 3 - 19+ 3-dose series) 1993 Pneumococcal Vaccine: 50+ Years (1 of 2 - PCV) 1993 Cervical Cancer Screening: P ap Smear 1995 Colorectal Cancer Screening: Colonoscopy 08/13/2022 HIV Screening 08/13/2022 Hepatitis C Screening 08/13/2022 Social Influencers of Health Screening 08/13/2022 Zoster Vaccines (1 of 2) 2024 Depression Screening 09/10/2024 COVID-19 Vaccine (1 - 2023-2 5 season) 2025 Influenza Vaccine (#1) 2025 Hypertension/CHF/CAD Annual BMP Blood Test 10/24/2025 10/24/2024, 07/18/2024 Cholesterol Screening (Lipid Panel) 10/24/2029 10/24/2024, 07/18/2024 RSV Immunization Adult Patients (1 - 1-dose 75+ series) 2049 HIB [...] Procedure Name Priority Date/Time Associated Diagnosis Comments HELICOBACTER PYLORI BREATH TEST Routine 05/27/2025 2:13 PM EDT Abdominal pain BASIC METABOLIC PANEL Routine 10/24/2024 9:07 AM EST GERD (gastroesophageal reflux disease) Foot pain CAD (coronary artery disease) HTN (hypertension) LIPID PANEL WITH REFLEX TO DIRECT LDL Routine 10/24/2024 9:07 AM EST GERD (gastroesophageal reflux disease) Foot pain CAD (coronary artery disease) HTN (hypertension) from Last 3 Months or Most Recently Relevant to Health Maintenance Results * Helicobacter pylori breath test (05/27/2025 2:13 PM EDT) Pathologist [facility] H Pylori Breath Test Negative Negative LAB CHEMISTRY METHOD 05/27/2025 2:58 PM EDT [facility] Breath Oral cavity structure / Unknown Non-blood Collection / Unknown 05/27/2025 2:13 PM EDT 05/27/2025 2:13 PM EDT [facility] LAB BODY FLUIDS AND STOOLS ORDER HOLLY Final Result [facility] [address] [place] [address], [place] [phone] * (ABNORMAL) Lipid panel with reflex to direct LDL (10/24/2024 9:07 AM EST) Cholesterol 201(H) 0 - 200 mg/dL LAB CHEMISTRY METHOD 10/24/2024 11:25 AM EST [facility] Triglycerides 177(H) 0 - 150 mg/dL LAB CHEMISTRY METHOD 10/24/2024 11:25 AM EST [facility] HDL 68 >=40 mg/dL LAB CHEMISTRY METHOD 10/24/2024 11:25 AM EST [facility] LDL Calculated 98 0 - 100 mg/dL LAB CHEMISTRY METHOD 10/24/2024 11:25 AM [facility] VLDL Cholesterol Brown 35.4 mg/dL LAB CHEMISTRY METHOD 10/24/2024 11:25 AM [facility] Non HDL Chol. (LDL+VLDL) 133 <145 mg/dL LAB CHEMISTRY METHOD 10/24/2024 11:25 AM [facility] Chol/HDL Ratio 3.0 0.0 - 4.4 LAB CHEMISTRY METHOD 10/24/2024 11:25 AM [facility] Blood Venous blood specimen / Unknown Venipuncture / Unknown 10/24/2024 9:07 AM EST 10/24/2024 9:07 AM EST us [facility] [employer] [facility] LAB BLOOD ORDERABLES Final Resul t [facility] [address] [place] [address], * Basic metabolic panel (10/24/2024 9:07 AM EST) Sodium 139 133 - 145 mmol/L LAB CHEMISTRY METHOD 10/24/2024 11:25 AM [facility] Potassium 4.1 3.5 - 5.5 mmol/L LAB CHEMISTRY METHOD 10/24/2024 11:25 AM [facility] Chloride 106 96 - 110 mmol/L LAB CHEMISTRY METHOD 10/24/2024 11:25 AM [facility] CO2 28 21 - 32 mmol/L LAB CHEMISTRY METHOD 10/24/2024 11:25 AM [facility] Anion Gap 5 3 - 11 LAB CHEMISTRY METHOD 10/24/2024 11:25 AM [facility] Glucose 99 70 - 100 mg/dL LAB CHEMISTRY METHOD 10/24/2024 11:25 AM [facility] BUN 18 5 - 25 mg/dL LAB CHEMISTRY METHOD 10/24/2024 11:25 AM [facility] Creatinine 0.73 0.50 - 1.10 mg/dL LAB CHEMISTRY METHOD 10/24/2024 11:25 AM EST [facility] eGFR 100 >=60 mL/min/1. 73m2 LAB CHEMISTRY METHOD 10/24/2024 11:25 AM EST [facility] Comment:Calculation based on the Chronic Kidney Disease Epidemiology Collaboration (CKD-EPI) equation refit without adjustment for race. BUN/Creatinine Ratio 24.7 LAB CHEMISTRY METHOD 10/24/2024 11:25 AM EST [facility] Calcium 9.8 8.5 - 10.5 mg/dL LAB CHEMISTRY METHOD 10/24/2024 11:25 AM [facility] Blood Venous blood specimen / Unknown Venipuncture / Unknown 10/24/2024 9:07 AM EST 10/24/2024 9:07 AM EST us [facility] [facility] LAB BLOOD ORDERABLES Final Resul t [facility] [address] [place] [address], from Last 3 Months or Most Recently Relevant to Health Maintenance Insurance [facility] Member Subscriber Plan / Payer (Ef fective 2023-Present) Name:GIA WARE Relation to Subscriber:Self Name:Gia Ware Payer ID:[id number] Group ID:[id number] Type:Not on file Address: [place] [address] [place] [address] Care Teams Mailroom Personnel Relationship Specialty Start Date End Date Danny Romero DO [address] [place] [phone] PCP - General Internal Medicine 12/25/18
== END 2025-05-28 10:05 | disposition home or self-care (01) ==
LOC: HO.MAMMO 10:04
PROVIDERS: PCP Internal Medicine; Visit Provider Internal Medicine
DX: Z12.31 Encounter for screening mammogram for malignant neoplasm of breast (principal)
CPT/HCPCS: 77063; 77067

== ENCOUNTER 2025-06-23 09:53 | Outpatient (REF) | payer OTHER, SELFPAY ==
--- OUTSIDE RECORDS SUMMARY | 2024-12-24 09:00 | XMS_ITS ---
[facility] Jeremy colby [place] Address [address] [place] [address] Care Team Providers Care Director Of Patient Safety Name Role Phone Danny Romero MD Primary Care Provider Farzana Walton Unavailable [phone] Medications Medication SIG (Take, Route, Fr equency, Duration) Notes Start Date End Date Status Chloraseptic Active Phenol Active FreeStyle Lite Test Active ProAir HFA Active Fluticasone Propionate Active Cetirizine HCl Activ e Albuterol Sulfate Ac tive Cyclobenzaprine HCl Active Hydrocortisone Activ e Lidocaine Active Latuda Active Fluoxetine Active Omeprazole Active OLANZapine Active traZODone HCl Active Flovent HFA Active Vraylar Active Gabapentin Active SEROquel Active Cogentin Active Docusate Sodium Acti ve Social History Tobacco Use: Social History Observation Description Date Details (start date - stop date) Never Smoker NA - NA Tobacco use other than smoking: Question Answer Notes Are you an other tobacco user? No Tobacco Control (Standard) Question Answer Notes Tobacco use: Nonsmoker AUDIT-C (Standard) Question Answer Notes Did you have a drink containing alcohol in the p ast year? No Points 0 Interpretation Negative Encounters Encounter Location Date Provider Diagnosis [facility] [address] [place] [address] 12/24/2024 Farzana Pruett Plan Of Treatment Next Appt Details Provider Name:Farzana Pruett , 06/24/2025 09:00:00 AM, [address], [address], Progress Notes * Hitesh MIRB:10/1974 (50 yo F)Acc No.[id number]:12/24/2024 Progress Notes Patient: Gia CHADWICK Provider: Larry Pruett DPM :1975 A ge:49 Y S ex:Female Date:12/24/2024 Address:[address] [place], [place] [id number] Pcp:Danny Romero MD Subjective: * Chief Complaints: * * ROS: G eneral/Constitutional: Nausea d enies. V omiting d enies. H brittany Thirst d enies. L oss appetite d enies. C hills d enies. F atigue d enies.?Fever d enies. N ight Sweats d enies. U nexplained weight loss d enies. U nexplained weight gain d enies. H EENTM: Dentures d enies. D izziness d enies. G lasses/contacts d enies. R etinopathy d enies. B lurred/double vision d enies. T MJ?denies. D ischarge/drainage d enies. I mplants d enies. S ore throat d enies. D ental implants d enies. H aleida of hearing d enies. D ifficulty chewing/swallowing/speaking d enies. N ose bleeds d enies. S ore mouth d enies. ? R espiratory: On Oxygen d enies. P neumonia/pleurisy d enies.?Bronchitis d enies. E mphysema d enies. C oughing d enies. C ough blood?denies. S hortness of breath d enies. W heezing d enies. C ardiovascular: Pacemaker d enies. M ELECTROPHYSIOLOGY TECHNICIAN d enies. W PW d enies. C HF d enies. H eart attack d enies. S eptal defect d enies. R apid beat d enies. C hest pain d enies. A trial Fib. d enies. M urmur/Palpitations d enies. G astrointestinal: Hemorrhoids d enies. S tomach/Abdominal pain d enies. D ark blood stool d enies. I rritable bowel d enies. C onstipation d enies. D iarrhea d enies. H ematology: Swelling d enies. C lots d enies. V aricose Veins d enies. B ruising d enies. B leeding problem d enies. G enitourinary: Blood urine d enies. F requent/Painfu/urination/bladder control d enies. K idney stones d enies. I nfection (UTI) d enies. N ephropathy d enies. s ex trans dis (STD) d enies. P rostate d enies. M usculoskeletal: Hammertoes d enies. B unions d enies. B ack Pain d enies. M uscle Cramps/ Resting d enies. M uscle cramps / walking d enies.?Generalized aches and pains d enies. W eakness d enies. I nteg.: Diallo d enies. S cars d enies. C orns/calluses?denies. I ngrown nails d enies. P ainful nails d enies. O pen Sores d enies. R ashes d enies. N eurologic: Difficulty sleeping d enies. B rain disorder d enies. N umbness d enies. B alance trouble d enies. C onfusion d enies. F ainting/blackouts d enies. T ingling d enies. T remors d enies. * Medical History: D epression, Anxiety, Insomnia, HTN, DM, VIT D. DEF, FIBROIDS, +RF SENT TO [facility], HX SUICIDE ATTEMPT - OD 2014, GANGLION CYST R WRIST, ALLERGIC RHINITIS, ANEMIA GI AND HEME. * Surgical History: c olonoscopy 2022. * Family History: M other: alive, diagnosed with Diabetic - NIDDM, Family history of arthritis. F ather: . * Social History: T obacco Use: T obacco use other than smoking A re you an other tobacco user? N o Tobacco Control (Standard) T obacco use: N onsmoker D rugs/Alcohol: D rugs H ave you used drugs other than those for medical reasons in the past 12 months? N o M iscellaneous: C affeine: yes. Children: yes. Marital status: . D rug/Alcohol: A SHAHEED-C (Standard) D id you have a drink containing alcohol in the past year? N o P oints 0 I nterpretation N egative * Medications: T aking Docusate Sodium , Taking Flovent HFA , Taking Vraylar , Taking Gabapentin , Taking SEROquel , Taking Cogentin , Taking OLANZapine , Taking traZODone HCl , Taking Latuda , Taking Fluoxetine , Taking Omeprazole , Taking Hydrocortisone , Taking Cetirizine HCl , Taking Albuterol Sulfate , Taking Cyclobenzaprine HCl , Taking Lidocaine , Taking FreeStyle Lite Test , Taking ProAir HFA , Taking Fluticasone Propionate , Taking Chloraseptic , Taking Phenol Objective: * Vitals: Assessment: Plan: * Treatment: * Images: * The named appointment provid er may or may not be the originator of this progress note, and it is not deemed complete until electronically signed by the appointment provider. Sign off status: Pending * Provider: Larry Pruett DPM Date: 0 12/24/2024 Generated for Girma jacob/Ayden/Reilly on: 1 11:17 AM EDT
--- NOTE | ~2025-06-23 | US_ITS ---
CLINICAL HISTORY: N20.0 - Calculus of kidney US Renal Comparison: US/SR - US RETROPERITONEUM - 04/21/24 13:10 EDT Findings: Right kidney normal size and echotexture, 11.7 cm length. Left kidney normal size and echotexture, 12.5 cm length. No collecting system dilatation of either kidney. IMPRESSION: 1. Normal sonographic appearance of the kidneys. No definite renal stone is identified. This document has been electronically signed by: Allan Ross on 06/24/2025 10:01:30
--- OUTSIDE RECORDS SUMMARY | 2025-06-23 11:17 | XMS_ITS | Encounter Summary ---
Author Organization [facility] Address [address] [facility] 7t [place] [address] Care Team Providers Care Mitigation Supervisor Name Role Phone Gabriela Blandon OD Primary Care Provider [phone] Encounter Details Date Type Department Care Team (Latest Contact Info) Description 01/21/[address] [facility] CONVERSIONS Dental, Provider, DDS Social History [...] Care Team (Late st Contact Info) Description 06/29/2025 9:00 AM EDT Office Visit [facility] ADULT DENTAL [address] [place] [address] 07/28/2025 3:30 PM EST Office Visit [facility] OPTOMETRY [address] [place] [address] Gabriela Blandon, OD [address] [place] [address] 10/01/2025 10:15 AM EST Office Visit [facility] ADULT DENTAL [address] [place] [address] Marbella, Marci [address] [place] [address] documented as of this encounter Visit Diagnoses Not on filedocumented in this encounter Care Teams Mitigation Supervisor Relationship Specialty Start Date End Date Gabriela Blandon OD [address] [place] [id number] PCP - General Optometry 09/18/19 09/16/23 documented as of this encounter
--- OUTSIDE RECORDS SUMMARY | 2025-06-23 11:17 | XMS_ITS | Patient Health Record ---
Author Organization [facility] colby [place] Address [address] [place] [address] Care Team Providers Care Internet Marketing Analyst Name Role Phone Heather TATE, Danny Primary Care Provider Franky Pruett Farzana Unavailable [phone] Allergies Allergen (clinical drug ingredient) Drug/Non Drug [...] Problem Acquired hammer toe of right foot (0569331256312 105) Hammer toe of right foot (M20.41) Active confirmed Problem Acquired hammer toe of left foot (9365747347798 103) Hammer toe of left foot (M20.42) Active confirmed Vital Signs Heart Rate 86 /min 03/24/2025 Blood pressure diastolic 89 R mm Hg 03/24/2025 Height 5ft 4in in 03/24/2025 Blood pressure systolic 137 mm Hg 03/24/2025 Weight 208 lbs 03/24/2025 BMI 35.7 kg/m2 03/24/2025 Encounters Encounter Location Date Provider Diagnosis [facility] [address] [place] [address] 03/24/2025 Farzana Black Pain in left foot [...] and Hammer toe of left foot M20.42 [facility] [address] [place] [address] 12/25/2024 [facility] [address] [address] [facility] [address] 12/18/2024 [facility] [address] [place] [address] 12/24/2024 [facility] [address] [place] [address] 06/18/2025 Farzana Pruett Assessments Encounter Date Diagnosis (ICD Code) Assessment [...] Name:Farzana Pruett , 06/24/2025 09:00:00 AM, [address] [facility], [place], [address], Insurance Providers Payer Name Payer Address Payer Phone Subscriber Number Group Number Insured Name Patient Relationship to Insured Coverage Start Date Coverage End Date [facility] SCO Claims [address] [place] [phone] [id number] Gia Eddy Self - patient is the insured Medical (General) History Medical History History ICD Code Depression Anxiety Insomnia HTN DM VIT D. DEF FIBROIDS +RF SENT TO [facility] HX SUICIDE ATTEMPT - OD 2014 GANGLION CYST R WRIST ALLERGIC RHINITIS ANEMIA GI AND HEME Surgical History Surgery Date(Month/Year) colonoscopy 2022 Gallbladder 02/13/25
--- OUTSIDE RECORDS SUMMARY | 2025-06-23 11:17 | XMS_ITS | Clinical Summary ---
Author Organization [employer] Address [address] [facility] 7t [place] [address] Care Team Providers Care Conveyor Maintenance Mechanic Name Role Phone Unavailable Primary Care Provider [...] TABLET BY MOUTH EVERY DAY WITH FOOD Active oxyCODONE (Roxicodone) 5 MG immediate release [...] 50 mg by mouth Once per day. Active acetaminophen (Tylenol 8 Hour) 650 MG ER tablet Take 1 tablet (650 mg) by mouth every 8 (eight) hours if needed for mild pain. Do not crush, chew, or split. 30 tablet Active Active Problems Problem Noted Date Diagnosed Date Allergic rhinitis 06/16/2025 Anxiety 06/16/2025 Carpal tunnel syndrome 06/16/2025 Menorrhagia 06/16/2025 Mild persistent asthma 06/16/2025 Obstructive sleep apnea syndrome 06/16/2025 Post-nasal drip 06/16/2025 Severe obesity (BMI 35.0-39.9) with comorbidity (CMS/HCC) 06/16/2025 Tendinitis 06/16/2025 Uterine fibroid 06/16/2025 Pain, dental 06/16/2025 Fractured dental jewish without loss of mat erial 05/25/2025 Abnormal auditory perception 12/09/2024 Chronic otitis externa 12/09/2024 Dental caries on smooth surface limited to ename l 08/24/2023 Cough 08/15/2023 Overview (06/16/2025): Cough, unspecified; Note: Date Diagnosed: 08/15/2023 4:11 PM (R05.9) Diffuse otitis externa of both ears 08/15/2023 Overview (06/16/2025): Diffuse otitis externa, bilateral; Note: Date Diagnosed: 08/15/2023 4:11 PM (H60.313) Dysphagia 08/15/2023 Overview (06/16/2025): Dysphagia, unspecified; Note: Date Diagnosed: 08/15/2023 4:11 PM (R13.10) Dental plaque 03/22/2023 Iron deficiency anemia due to chronic blood loss 02/25/2020 Menorrhagia with irregular cycle 02/25/2020 Anemia of unknown etiology 11/16/2017 Microcytic anemia 03/29/2017 Severe depression (CMS/HCC) 12/18/2016 Anterior knee pain 11/17/2016 Benign hypertension 11/17/2016 Headache 11/17/2016 Obesity (BMI 30-39.9) 11/17/2016 Severe major depression, sin gle episode, without psychotic features (CMS/HCC) 11/17/2016 Swelling of lower limb 11/17/2016 Varicose veins of lower extremity 11/17/2016 Encounters Date Type Department Care Team Description 06/16/2025 10:00 AM EDT Office Visit [facility] ADULT DENTAL [address] [place] [address] Ciro Jimenez DDS Pain, dental (Primary Dx) 05/25/2025 3:00 PM EDT Office Visit [facility] ADULT DENTAL [address] [place] [address] Ciro Jimenez DDS Fractured dental jewish without loss of material (Primary Dx) 03/25/2025 2:30 PM EDT Office Visit [facility] ADULT DENTAL [address] [place] [address] Ciro Jimenez DDS Dental caries on smooth surface limited to enamel (Primary Dx); Fractured dental jewish without loss of material; Tooth erosion from Last 3 Months Social History Tobacco [...] Sign Reading Time Taken Comments Blood Pressure 138/86 06/16/2025 9:59 AM EDT Pulse 80 06/16/2025 9:59 AM EDT Temperature - - Respiratory Rate - - Oxygen Saturation - - Inhaled Oxygen Concentration - - Weight - - Height - - Body Mass Index - - Plan of Treatment Upcoming Encounters Date Type Department Care Team (Late st Contact Info) Description 06/29/2025 9:00 AM EDT Office Visit [facility] ADULT DENTAL [address] [place] [address] 07/28/2025 3:30 PM EST Office Visit [facility] OPTOMETRY [address] [place] [address] Barber, Gabriela, OD [address] [place] [address] 10/01/2025 10:15 AM EST Office Visit [facility] ADULT DENTAL [address] [place] [address] Marbella, Marci [address] [place] [address] Health Maintenance Due Date Last Done Comments [...] 2024 COVID-19 Vaccine ( - 2023- season) 2025 Influenza Vaccine (#1) 2025 Dental Oral Exam 09/19/2025 03/18/2025, 05/2024, 03/22/2023, Additional history exists Dental Prophylaxis 09/19/2025 03/18/2025, 0 03/18/2024, 03/22/2023, Additional history exists Dental X-Ray: Bitewings 03/19/2026 03/18/20 25, 03/18/2024, 07/04/2022, Additional history exists Tobacco Screening 06/16/2026 06/16/2025 Dental X-Ray: Full Mouth 03/19/2028 025, 01/21/2021, [...] Procedure Name Priority Date/Time Associated Diagnosis Comments NO CHARGE VISIT Routine 06/16/2025 10:00 AM EDT LIMITED ORAL EVALUATION - PROBLEM FOCUSED Routine [...] Routine 03/25/2025 2:30 PM EDT Fractured dental jewish without loss of material PROPHYLAXIS - ADULT Routine 03/18/2025 3 :00 PM EDT Dental plaque INTRAORAL - COMPLETE SERIES OF RADIOGRAPHIC IMAGES Routine 03/18/2025 3:00 PM EDT Fractured dental jewish without loss of material Tooth erosion Dental plaque PERIODIC ORAL EVALUATION - ESTABLISHED PATIENT Routine 03/18/2025 3:00 PM EDT from Last 3 Months or Most Recently Relevant to Health Maintenance Insurance [facility] [address] [facility]
--- OUTSIDE RECORDS SUMMARY | 2025-06-23 11:17 | XMS_ITS | Clinical Summary ---
Author Organization [facility] Address [address] [place] [address] Care Team Providers Care Associate Professor Of Geology Name Role Phone Danny Romero DO Primary Care Provider [phone] Allergies No known active allergies Medications Medication [...] age to complete this topic Care Teams Associate Professor Of Geology Relationship Specialty Start Date End Date Danny Romero DO [address] [place] [id number] PCP - General Internal Medicine 11/16/17
--- OUTSIDE RECORDS SUMMARY | 2025-06-23 11:17 | XMS_ITS | Encounter Summary ---
Author Organization [facility] Address [address] [facility] [address] [place] [address] Care Team Providers Care Video News Editor Name Role Phone Gabriela Blandon OD Primary Care Provider [phone] Encounter Details Date Type Department Care Team (Latest Contact Info) Description 07/04/2022 Abstract [facility] CONVERSIONS Dental, Provider, DDS Social History [...] Description 06/29/2025 9:00 AM EDT Office Visit [facility] ADULT DENTAL [address] [place] [address] 07/28/2025 3:30 PM EST Office Visit [facility] OPTOMETRY [address] [place] [address] Gabriela Blandon, OD [address] [place] [address] 10/01/2025 10:15 AM EST Office Visit [facility] ADULT DENTAL [address] [place] [address] Marbella, Marci [address] [place] [address] documented as of this encounter Visit Diagnoses Not on filedocumented in this encounter Care Teams Video News Editor Relationship Specialty Start Date End Date Gabriela Blandon OD [address] [place] [id number] PCP - General Optometry 09/18/19 09/16/23 documented as of this encounter
--- OUTSIDE RECORDS SUMMARY | 2025-06-23 11:17 | XMS_ITS | Clinical Summary ---
Author Organization [address] Address [address] [place] [address] Phone Care Team Providers Care Milling/Polishing Operator Name Role Phone Danny Romero DO Primary Care Provider [phone] Surgical History Surgery Date Site/Laterality Comments SECTION PROCEDURE: HISTORICAL DELIVERY SECTION PROCEDURE: SECTION Medical History Medical History Date Comments Asthma DX:Asthma Depression DX:Depression Anxiety DX:Anxiety Anemia DX:Anemia HTN (hypertension) DX:HTN (hyper tension) Carpal tunnel syndrome of right wrist DX:Carpal tunnel syndrome of right wrist Severe obesity (BMI 35.0-39. 9) with comorbidity (CMS/[facility] V24, [facility] V28) 04/22/2019 DX:Severe obesi ty (BMI 35.0- 39.9) with comorbidity ([facility]); COMMENT: Hypertension Anemia DX:Anemia Depression DX:Depression Anxiety DX:Anxiety Insomnia DX:Insomnia Hypertension DX:Hypertension Vitamin D deficiency DX:Vitamin D deficiency Fibroids DX:Fibroids Allergic rhinitis DX:Allergic rh initis Anemia of unknown etiology 11/16/2017 DX:An emia of unknown etiology Suicide attempt (CMS/[facility] V24 , [facility] V28) 2014 DX:Suicide attempt ([facility]) Obesity DX:Obesity Diabetes mellitus (CMS/[facility] V 24, [facility] V28) DX:Diabetes mellitus ([facility]);COMMENT:Not on medication Family History Medical History Relation [...] Last Done Comments Breast Cancer Screening 1974 Colorectal Cancer Screening: Colonoscopy 1974 DTaP,Tdap,and Td Vaccines (1 - Tdap) 1993 Hepatitis B Vaccines (1 of 3 - 19+ 3-dose series) 1993 Pneumococcal Vaccine: 50+ Years (1 of 2 - PCV) 1993 Cervical Cancer Screening: P ap Smear 1995 HIV Screening 08/13/2022 Hepatitis C Screening 08/13/2022 [...] breath test (05/27/2025 2:13 PM EDT) Pathologist [facility] H Pylori Breath Test Negative Negative LAB CHEMISTRY METHOD 05/27/2025 2:58 PM EDT [facility] Breath Oral cavity structure / Unknown Non-blood Collection / Unknown 05/27/2025 2:13 PM EDT 05/27/2025 2:[address] [facility] LAB BODY FLUIDS AND STOOLS ORDER HOLLY Final Result [facility] [address] [place] [address], [place] [phone] * (ABNORMAL) Lipid panel with reflex to direct LDL (10/24/2024 9:07 AM EST) Cholesterol 201(H) 0 - 200 mg/dL LAB CHEMISTRY METHOD 10/24/2024 11:25 AM EST [facility] Triglycerides 177(H) 0 - 150 mg/dL LAB CHEMISTRY METHOD 10/24/2024 11:25 AM EST [facility] HDL 68 >=40 mg/dL LAB CHEMISTRY METHOD 10/24/2024 11:25 AM EST [facility] LDL Calculated 98 0 - 100 mg/dL LAB CHEMISTRY METHOD 10/24/2024 11:25 AM [facility] VLDL Cholesterol Brown 35.4 mg/dL LAB CHEMISTRY METHOD 10/24/2024 11:25 AM [facility] Non HDL Chol. (LDL+VLDL) 133 <145 mg/dL LAB CHEMISTRY METHOD 10/24/2024 11:25 AM [facility] Chol/HDL Ratio 3.0 0.0 - 4.4 LAB CHEMISTRY METHOD 10/24/2024 11:25 AM [facility] Blood Venous blood specimen / Unknown Venipuncture / Unknown 10/24/2024 9:07 AM EST 10/24/2024 9:07 AM EST us Arroyo Alexander SENIOR ACCOUNT DIRECTOR LAB BLOOD ORDERABLES Final Resul t [facility] [address] [place] [address], * Basic metabolic panel (10/24/2024 9:07 AM EST) Sodium 139 133 - 145 mmol/L LAB CHEMISTRY METHOD 10/24/2024 11:25 AM [facility] Potassium 4.1 3.5 - 5.5 mmol/L LAB CHEMISTRY METHOD 10/24/2024 11:25 AM [facility] Chloride 106 96 - 110 mmol/L LAB CHEMISTRY METHOD 10/24/2024 11:25 AM [facility] CO2 28 21 - 32 mmol/L LAB CHEMISTRY METHOD 10/24/2024 11:25 AM [facility] Anion Gap 5 3 - 11 LAB CHEMISTRY METHOD 10/24/2024 11:25 AM [facility] Glucose 99 70 - 100 mg/dL LAB CHEMISTRY METHOD 10/24/2024 11:25 AM [facility] BUN 18 5 - 25 mg/dL LAB CHEMISTRY METHOD 10/24/2024 11:25 AM [facility] Creatinine 0.73 0.50 - 1.10 mg/dL LAB CHEMISTRY METHOD 10/24/2024 11:25 AM EST [facility] eGFR 100 >=60 mL/min/1. 73m2 LAB CHEMISTRY METHOD 10/24/2024 11:25 AM EST [facility] Comment:Calculation based on the Chronic Kidney Disease Epidemiology Collaboration (CKD-EPI) equation refit without adjustment for race. BUN/Creatinine Ratio 24.7 LAB CHEMISTRY METHOD 10/24/2024 11:25 AM EST [facility] Calcium 9.8 8.5 - 10.5 mg/dL LAB CHEMISTRY METHOD 10/24/2024 11:25 AM [facility] Blood Venous blood specimen / Unknown Venipuncture / Unknown 10/24/2024 9:07 AM EST 10/24/2024 9:07 AM EST us Arroyo Alexander SENIOR ACCOUNT DIRECTOR LAB BLOOD ORDERABLES Final Resul t [facility] [address] [place] [address], from Last 3 Months or Most Recently Relevant to Health Maintenance Insurance [facility] Member Subscriber Plan / Payer (Ef fective 2023-Present) Name:GIA WARE Relation to Subscriber:Self Name:Gia Ware Payer ID:[id number] Group ID:[id number] Type:Not on file Address: [place] [address] [place] [id number] Care Teams Milling/Polishing Operator Relationship Specialty Start Date End Date Danny Romero DO [address] [place] [phone] PCP - General Internal Medicine 12/25/18
--- OUTSIDE RECORDS SUMMARY | 2025-06-23 11:17 | XMS_ITS | Encounter Summary ---
Author Organization [facility] Address [address] [place] [address] Care Team Providers Care Student Counselor Name Role Phone Danny Romero DO Primary Care Provider [phone] Encounter Details Date Type Department Care Team (Late st Contact Info) Description 02/04/[address] [facility] [address] [facility] [place] [phone] Dina Alexander NP [address] [place] [phone] Dysuria; Frequency of micturition; Pruritus vulvae Social [...] vaginalis Negative Negative 02/05/2025 12:05 PM EDT [facility] Gardnerella vaginalis Negative Negative 02/05/2025 12:05 PM EDT [facility] Suad Species Negative Negative 12:05 PM EDT [facility] Swab Vaginal structure / Unknown 02/04/2025 3:51 PM EDT 02/04/2025 7:22 PM EDT us Arroyo Alexander PERSONAL FINANCIAL COUNSELOR LAB MICROBIOLOGY - GENERAL ORDER HOLLY Final Result [facility] [address] [place] [address], [place] [phone] * (ABNORMAL) Urinalysis with reflex microscopic (02/04/2025 3:51 PM EDT) Pathologist [facility] Specific [place] Urine 1.031(H) 1.003 - 1.030 LAB URINALYSIS - AUTOMATED METHOD 02/04/2025 7:36 PM EDT [facility] pH, Urine 5.5 5.0 - 8.0 pH LAB URINALYSIS - AUTOMATED METHOD 02/04/2025 7:36 PM EDT [facility] Leukocytes, Urine Negative Negative LAB URINALYSIS - AUTOMATED METHOD 02/04/2025 7:36 PM EDT [facility] Nitrite, Urine Negative Negative LAB URINALYSIS - AUTOMATED METHOD 02/04/2025 7:36 PM EDT [facility] Protein, Urine Negative <=Trace mg/dL LAB URINALYSIS - AUTOMATED METHOD 02/04/2025 7:36 PM EDT [facility] Glucose, Urine Negative Negative mg/dL LAB URINALYSIS - AUTOMATED METHOD 02/04/2025 7:36 PM EDT [facility] Ketones, Urine Trace(A) Negative mg/dL LAB URINALYSIS - AUTOMATED METHOD 02/04/2025 7:36 PM EDT [facility] Urobilinogen, Urine 1.0 0.2 - 1.0 mg/dL LAB URINALYSIS - AUTOMATED METHOD 02/04/2025 7:36 PM EDT [facility] Bilirubin, Urine Negative Negative LAB URINALYSIS - AUTOMATED METHOD 02/04/2025 7:36 PM EDT [facility] Blood, Urine Negative Negative LAB URINALYSIS - AUTOMATED METHOD 02/04/2025 7:36 PM EDT [facility] Urine Urine specimen obtained by clean catch procedure / Unknown 02/04/2025 3:51 PM EDT 02/04/2025 7:22 PM EDT us Arroyo Alexander PERSONAL FINANCIAL COUNSELOR LAB URINE ORDERABLES Final Resul t Performing Organization Address City/[facility]/ZIP Co de Phone Number [facility] [address] [place] [address], [place] [phone] * Culture urine (02/04/2025 3:51 PM EDT) Culture, Urine No growth 02/05/2025 2:06 PM EDT [facility] Urine Urine specimen obtained by clean catch procedure / Unknown 02/04/2025 3:51 PM EDT 02/04/2025 7:22 PM EDT us Arroyo Alexander PERSONAL FINANCIAL COUNSELOR LAB MICROBIOLOGY - GENERAL ORDER HOLLY Final Result Performing Organization Address City/[facility]/ZIP Co de Phone Number [facility] [address] [place] [address], [place] [phone] documented in this encounter Visit Diagnoses Diagnosis Dysuria Frequency of micturition Urinary frequency Pruritus vulvae Pruritus of genital organs documented in this encounter Care Teams Student Counselor Relationship Specialty Start Date End Date Danny Romero DO [address] [place] [phone] PCP - General Internal Medicine 12/25/18 documented as of this encounter
== END 2025-06-23 09:54 | disposition home or self-care (01) ==
LOC: HO.US 09:53
PROVIDERS: PCP Internal Medicine; Visit Provider Nurse Practitioner Family
DX: N20.0 Calculus of kidney (principal)
CPT/HCPCS: 76775

== ENCOUNTER → 2025-06-23 10:00 | Outpatient (BNV) | payer OTHER, SELFPAY | PROVIDERS: PCP Internal Medicine; Visit Provider Radiology Vascular & Interventional Radiology | DX: N20.0 Calculus of kidney (principal) | CPT/HCPCS: 76775 ==

== ENCOUNTER 2025-06-30 09:28 | Outpatient (AMB) | payer OTHER, SELFPAY ==
--- OUTSIDE RECORDS SUMMARY | 2024-12-24 09:00 | XMS_ITS ---
[facility] Organization [facility] Jeremy [facility]by [place] Address [address] [place] [address] Care Team Providers Care Sample Tester Name Role Phone Danny Romero MD Primary Care Provider Farzana Walton [phone] Medications Medication SIG (Take, Route, Fr equency, [...] Negative Encounters Encounter Location Date [facility] [address] 12/24/2024 Farzana Pruett Plan Of Treatment No Information Progress Notes * Hitesh MIRB:10/1974 (50 yo F)Acc No.[id number]:12/24/2024 Progress Notes Patient: Norma SHEPPARDGia FRANCO Provider: Larry Pruett DPM :1975 A ge:49 Y S ex:Female Date:12/24/2024 Address:[address] [place] [address], [place], [phone] Pcp:Danny Romero MD Subjective: * Chief Complaints: [...] enies. C ardiovascular: Pacemaker d enies. M SUPERVISOR POLE YARD d enies. W PW d enies. C [...] 12/24/2024 Generated for Girma jacob/Ayden/Reilly on: 1 10:37 AM EDT
--- NOTE | 2025-06-30 09:52 | MHC.OFFVIS ---
Intake Visit Reasons: /US Intake Note: Patient is present for /US Urology Medication:ESTRADIOL,VITAMIN B1 Antibiotic Allergy:NONE Blood Thinner:NONE Nub Card Tender Required: No Nub Card Tender Name: [id number] Allergies Influenza Virus Vaccines Adverse Reaction (Verified 06/30/25 10:25) Wheezing Medication List - Last Reconciled 06/30/25 by MAYRA Gipson- albuterol sulfate 90 mcg/actuation (ProAir HFA) inhalation azelastine 2 sprays intranasal BID benztropine 0.5 mg PO BID bisacodyl (Dulcolax (bisacodyl)) 10 mg [place] DAILY PRN bisacodyl 10 mg (2 x 5 mg) PO BID 2 days cholecalciferol (vitamin D3) (Vitamin D3) 10 mcg PO DAILY citalopram 10 mg PO DAILY clotrimazole-betamethasone 1-0.05 % 1 appl topical BID desvenlafaxine succinate ER 200 mg PO DAILY docusate sodium (Colace) 200 mg (2 x 100 mg) PO BEDTIME estradiol 0.01%(0.1mg/gram) pea sized amount to urethra 3 times a week 90 days fluoxetine 60 mg PO DAILY furosemide 40 mg PO DAILY gabapentin 800 mg PO TID ibuprofen 600 mg PO TID ipratropium bromide 2 sprays intranasal BID lidocaine 5% patches topical losartan 50 mg PO DAILY metoprolol tartrate 100 mg PO BID mometasone-formoterol 200-5 mcg/actuation (Dulera) 2 puffs inhalation BID montelukast 10 mg PO DAILY naproxen 375 mg PO BID PRN olanzapine 20 mg PO DAILY rizatriptan 10 mg PO QD-BID sumatriptan succinate 100 mg PO DAILY PRN terconazole 0.8% 1 appful vaginal BEDTIME 3 days thiamine HCl (vitamin B1) 100 mg PO DAILY trazodone 150 mg PO BEDTIME HPI Comments Details: Gia is a very pleasant 50-year-old Nepali-speaking female patient of Dr. Romero. She has a past medical history of obesity, uterine fibroid, menorrhagia status post hysterectomy 2 years ago, carpal tunnel, anxiety, sleep apnea, asthma, hypertension, and depression. She presents to the office today for follow-up. In discussion with the patient today she reports to be doing and feeling well. She reports compliance with Estrace cream as prescribed. She denies having had any bothersome urinary issues or concerns. Recent renal imaging results reviewed with the patient today 07/04 normal sonographic appearance of the kidneys. No definite renal stone is identified. She discusses feeling Estrace cream has been helpful. She denies urinary urgency, urinary frequency, nocturia, hematuria, dysuria, foul smelling urine, changes to urinary stream, flank pain, fever, and or chills. She is happy with her current voiding parameters. She does report episodes of stress incontinence however is not enquiring further workup as she feels she is self managing these symptoms independently. In office urinalysis results reviewed with the patient today. She otherwise offers no other issues or concerns at this time. [facility] Medical History Obesity, Class II, BMI 35-39.9, isolated Uterine fibroid Tendonitis Post-nasal drip Menorrhagia Carpal tunnel syndrome of right wrist Anxiety Anemia Cough Sleep apnea Asthma HTN (hypertension) Depression Surgical History Hx of hysterectomy Hx of colonoscopy History of esophagogastroduodenoscopy (EGD) [place] teeth removed Hx of section History of tubal ligation Family History Mother Diverticulitis large intestine HTN (hypertension) Diabetes Father HTN (hypertension) Heart disease Social History Household Members: Spouse and Children Are you a primary patient centered care specialist to a significant other at home: No Do you presently have visiting nurse or other home services: No Alcohol intake: never Patient Tobacco Use Status: Never used Tobacco Female Reproductive History Menstrual Age of Menarche: 10 Review of Systems Const Reports no additional complaints Eyes Reports no additional complaints ENT Reports no additional complaints Card Reports as per HPI Resp Reports as per HPI GI Reports no additional complaints Reports as per HPI Musc Reports as per HPI Neuro Reports as per HPI Psych Reports as per HPI Endo Reports no additional complaints Sheng/Lymph Reports no additional complaints Aller/Immun Reports no additional complaints Physical Exam Const General: cooperative, healthy appearing, comfortable, no acute distress, well developed, alert, awake and Physically active Nutritional Appearance: overweight Orientation/consciousness: patient oriented x3 Limitations: no limitations HEENT Head: Yes normal to inspection, Yes normocephalic and Yes atraumatic Ears: hearing grossly normal bilaterally Eyes General: appearance normal, both eyes and all related structures Neck Neck: Yes normal visual inspection and Yes trachea midline Chest Chest palpation & inspection: normal inspection of the chest Resp Effort & Inspection: able to speak in complete sentences Cardio Rate: regular rate GI Inspection: Yes normal to inspection General: Yes no CVA tenderness Back/Spine/Pelvis Back: no CVA tenderness Skin General skin exam: no rashes or lesions noted Neuro General: patient oriented x3 Extrem General: Yes normal to inspection Psych Appearance: grossly normal and well kempt Mental Status: mental status grossly normal Speech and movement: Clear speech present Affect: normal affect Attitude: cooperative Thought process: Normal thought process present Thought content: Normal thought content present Insight: Fair insight present (Psych) Judgement: Fair judgement present (Psych) Results AMB Urinalysis, Automated UA Leukoctes 0 Ryan/uL Last Edit by PIEDAD Gimenez on 06/30/25 10:02 UA Nitrite Negative Last Edit by PIEDAD Gimenez on 06/30/25 10:02 UA Urobilinogen 0.2 mg/dL Last Edit by PIEDAD Gimenez on 06/30/25 10:02 UA Protein 0 mg/dL Last Edit by PIEDAD Gimenez on 06/30/25 10:02 UA pH 6.5 Last Edit by PIEDAD Gimenez on 06/30/25 10:02 UA Blood 0 Reymundo/uL Last Edit by PIEDAD Gimenez on 06/30/25 10:02 UA Specific [place] 1.015 Last Edit by PIEDAD Gimenez on 06/30/25 10:02 UA Ketone Negative Last Edit by PIEDAD Gimenez on 06/30/25 10:02 UA Bilirubin 0 mg/dL Last Edit by PIEDAD Gimenez on 06/30/25 10:02 UA Glucose 0 mg/dL Last Edit by PIEDAD Gimenez on 06/30/25 10:02 Results Reviewed Results Reviewed: Laboratory Last Values Urine pH (Auto) 6.5 06/30/25 10:01 Specific [place] (Auto) 1.015 06/30/25 10:01 Urine Protein (Auto) 0 mg/dL 06/30/25 10:01 Glucose (UA)(Auto) 0 mg/dL 06/30/25 10:01 Urine Ketones (Auto) Negative 06/30/25 10:01 Urine Blood (Auto) 0 Reymundo/uL 06/30/25 10:01 Urine Nitrite (Auto) Negative 06/30/25 10:01 Urine Bilirubin (Auto) 0 mg/dL 06/30/25 10:01 Urine Urobilinogen (Auto) 0.2 mg/dL 06/30/25 10:01 Leukocyte Esterase (Auto) 0 Ryan/uL 06/30/25 10:01 Date of Service: 06/23/25 Procedure(s): US renal BI US Renal Comparison: US/SR - US RETROPERITONEUM - 04/21/24 13:10 EDT Findings: Right kidney normal size and echotexture, 11.7 cm length. Left kidney normal size and echotexture, 12.5 cm length. No collecting system dilatation of either kidney. IMPRESSION: 1. Normal sonographic appearance of the kidneys. No definite renal stone is identified. Assessment & Plan Assessment & Plan (1) Dysuria: Code(s): R30.0 - Dysuria Category: Medical (2) Stress incontinence: Code(s): N39.3 - Stress incontinence (female) (male) Category: Medical Plan In office urinalysis results reviewed with the patient today; as noted above. Recent renal imaging results with the patient today; as noted above. She currently denies any bothersome urinary issues or concerns. She reports be happy with current voiding parameters. Continue Estrace cream as discussed and prescribed. Will continue with surveillance monitoring. Follow-up in 6 months with [facility]; or sooner with any issues, concerns, and or questions. Orders: Orders AMB Urinalysis Automated Today Z13.9 - Encounter for screening, unspecified Patient Instructions: The patient had an opportunity to ask questions regarding the treatment plan. All questions were answered. Physical exam, labs, and imaging were discussed and reviewed in detail. As well as risks, benefits, and discussion of treatment choices. No major barriers to understanding were identified. The patient expressed understanding and agreement with the above treatment plan. The patient was made aware they should contact our office by phone for worsening of their current condition, the appearance of new symptoms, or with any questions or concerns. Compliance is encouraged with any medications and follow up testing that is ordered. It is a privilege to be allowed the opportunity to participate in? your urological care.? Again, if you have any questions or concerns If you have any questions or concerns please do not hesitate to contact me. The office is [phone]. This note is constructed using voice recognition software. While every effort has been made to ensure accuracy bumper and painter errors may have been included. Yours sincerely, CASSANDRA Gipson Coding Level of Care Code Est Pt Level 3 (97272) Diagnoses Dysuria R30.0 Stress incontinence N39.3
--- OUTSIDE RECORDS SUMMARY | 2025-06-30 10:38 | XMS_ITS | Encounter Summary ---
Author Organization [facility] Address [address] [place] [address] Care Team Providers Care Meat Curer Name Role Phone Gabriela Blandon OD Primary Care Provider [phone] Encounter Details Date Type Department Care Team (Latest Contact Info) Description 07/04/2022 Abstract [facility] CONVERSIONS Dental, Provider, DDS Social History Tobacco [...] Upcoming Encounters Date Type Department Care Team ( st Contact Info) Description 07/28/2025 3:30 PM EST Office Visit [facility] OPTOMETRY [address] [place] [phone] Gabriela Blandon OD [address] [place] [address] 10/01/2025 10:15 AM EST Office Visit [facility] ADULT DENTAL [address] [place] [address] Marbella, Marci [address] [place] [address] documented as of this encounter Visit Diagnoses Not on filedocumented in this encounter Care Teams Meat Curer Relationship Specialty Start Date End Date Gabriela Blandon OD [address] [place] [id number] PCP - General Optometry 09/18/19 09/16/23 documented as of this encounter
--- OUTSIDE RECORDS SUMMARY | 2025-06-30 10:38 | XMS_ITS | Clinical Summary ---
Author Organization [employer] Address [address] [address] [place] [address] Care Team Providers Care Rail Flaw Detector Operator Name Role Phone Unavailable Primary Care Provider [...] fibroid 06/16/2025 Pain, dental 06/16/2025 Fractured dental adventism without loss of mat erial 05/25/2025 Abnormal [...] Description 06/16/2025 10:00 AM EDT Office Visit [facility] [address] [place] [address] Ciro Jimenez DDS Pain, dental (Primary Dx) 05/25/2025 3:00 PM EDT Office Visit [facility] [address] [place] [address] Ciro Jimenez DDS Fractured dental adventism without loss of material (Primary Dx) from Last 3 Months Social History Tobacco [...] Care Team (Late st Contact Info) Description 07/28/2025 3:30 PM EST Office Visit [facility] OPTOMETRY [address] [place] [address] Gabriela Blandon, OD [address] [place] [address] 10/01/2025 10:15 AM EST Office Visit [facility] [address] [place] [address] Marbella Marci [address] [place] [address] Health Maintenance Due Date Last Done Comments [...] 2024 COVID-19 Vaccine (1 - 2023- season) 2025 Influenza Vaccine (#1) [...] TREATMENT PLANNING Routine 05/25/2025 3:00 PM EDT PROPHYLAXIS - ADULT Routine 03/18/2025 3 :00 PM EDT Dental plaque INTRAORAL - COMPLETE SERIES OF RADIOGRAPHIC IMAGES Routine 03/18/2025 3:00 PM EDT Fractured dental adventism without loss of material Tooth erosion Dental plaque PERIODIC ORAL EVALUATION - ESTABLISHED PATIENT Routine 03/18/2025 3:00 PM EDT from Last 3 Months or Most Recently Relevant to Health Maintenance Insurance [facility] < 64 D[address]AL [facility]
--- OUTSIDE RECORDS SUMMARY | 2025-06-30 10:38 | XMS_ITS | Patient Health Record ---
Author Organization [facility] Address [address] [place] [id number] Care Team Providers Care Manager Community Relations Name Role Phone Heather TATE, Danny Primary Care Provider Farzana Walton Unavailable [phone] Allergies Allergen (clinical drug ingredient) Drug/Non Drug [...] X ray : Foot, right 3V Reviewed date:06/24/2025 12:45:17 PM Interpretation:See Examination above Performing Lab: Notes/Report: See Examination above Reason For Referral No Information Medications Medication SIG (Take, Route, Frequency, Duration) Notes Start Date End Date Status Lidocaine Active OLANZapine Active ProAir HFA Active Cogentin Active FreeStyle Lite Test Active Latuda Active Chloraseptic Active traZODone HCl Active Fluticasone Propionate Active Omeprazole Active Custom Orthotics as directed 03/24/2025 Active Fluoxetine Active Phenol Active Flovent HFA Active Cetirizine HCl Activ e Docusate Sodium Acti ve Hydrocortisone Activ e Gabapentin Active Cyclobenzaprine HCl Active Vraylar Active Albuterol Sulfate Ac tive SEROquel Active Night Splint AFO - L1930 as directed 06/24/2025 Active Custom Orthotics as directed 06/24/2025 Active Immunizations Vaccine Route Administration Date Status Comme nts Influenza Unknown 06/24/2025 Refused Social History Tobacco Use: Social History Observation Description Date Details (start date - stop date) Never Smoker NA - NA Tobacco use other than smoking: Question Answer Notes Are you an other tobacco user? No Tobacco Control (Standard) Question Answer Notes Tobacco use: Nonsmoker Additional Findings: Tobacco non-user Current no nsmoker AUDIT-C (Standard) Question Answer Notes Did you have a drink containing alcohol in the p ast year? No Points 0 Interpretation Negative Problems Problem Type SNOMED Code ICD Code Onset Dates Problem Status W/U Status Risk Notes Problem Acquired hammer toe of right foot (820514665865676 5) Hammer toe of right foot (M20.41) Active confirmed Problem Acquired hammer toe of left foot (942802024294941 3) Hammer toe of left foot (M20.42) Active confirmed Problem Plantar fasciitis of right foot (857251368595679 01) Plantar fasciitis of right foot (M72.2) Active confirmed Problem Interstitial myositis (67670172) Interstitial myositis of right foot (M60.171) Active confirmed Vital Signs Heart Rate 86 /min 03/24/2025 Blood pressure diastolic 80 mm Hg 06/24/2025 Height 5ft 4in in 06/24/2025 Blood pressure systolic 137 mm Hg 06/24/2025 Weight 208 lbs 06/24/2025 BMI 35.7 kg/m2 06/24/2025 Encounters Encounter Location Date Provider Diagnosis [address] [phone] 03/24/2025 Farzana Black Pain in left foot [...] and Hammer toe of left foot M20.[facility] [place] [address] 06/24/2025 Farzana Black Pain in right foot M79.671 ; Plantar fasciitis of right foot M72.2 ; Calcaneal spur, right foot M77.31 ; Interstitial myositis of right foot M60.171 and Bursitis of right foot M77.51 [facility] [address] [place] [address] 12/17/2024 [facility] [address] [place] [address] 12/18/2024 [facility] [address] 12/24/2024 [facility] [address] 12/25/2024 Farzana Black [address] [address] 06/18/2025 Farzana Black Assessments Encounter Date Diagnosis (ICD Code) Assessment Notes Treatment Notes Treatment Clinical Notes Section Notes 03/24/2025 Pain in left foot (ICD-10 - M79.672) 03/24/2025 Metatarsalgia of left foot (ICD-10 - M77.42) 06/24/2025 Pain in right foot (ICD-10 - M79.671) 06/24/2025 Plantar fasciitis of right foot (ICD-10 - M72.2) Patient Educated with: HEEL CORD STRETCHES.pdf (HEEL CORD STRETCHES.pdf ) Patient Educated with: RICE THERAPY.pdf (RICE THERAPY.pdf) 06/24/2025 Calcaneal spur, right foot (ICD-10 - M77.31) 03/24/2025 Pain in left ankle and joints of left foot (ICD-10 - M25.572) 03/24/2025 Bursitis of intermetatarsal bursa of left foot (ICD-10 - M77.52) 06/24/2025 Interstitial myositis of right foot (ICD-10 - M60.171) 06/24/2025 Bursitis of right foot (ICD-10 - M77.51) 03/24/2025 Pain in right foot (ICD-10 - M79.671) 03/24/2025 Pain in right ankle and joints of right foot (ICD-10 - M25.571) 03/24/2025 Bursitis of intermetatarsal bursa of right foot (ICD-10 - M77.51) 03/24/2025 Metatarsalgia, right foot (ICD-10 - M77.41) 03/24/2025 Hammer toe of right foot (ICD-10 - M20.41) 03/24/2025 Hammer toe of left foot (ICD-10 - M20.42) 06/24/2025 Other Plan Of Treatment No Information Insurance Providers Payer Name Payer Address Payer Phone Subscriber Number Group Number Insured Name Patient Relationship to Insured Coverage Start Date Coverage End Date [facility] [employer] Claims [address] [place] [id number] Gia Eddy Self - patient is the insured Medical (General) History Medical History History ICD Code Depression Anxiety Insomnia HTN DM VIT D. DEF FIBROIDS +RF SENT TO [facility] HX SUICIDE ATTEMPT - OD 2014 GANGLION CYST R WRIST ALLERGIC RHINITIS [facility] Surgical History Surgery Date(Month/Year) colonoscopy 2022 Gallbladder 02/13/25
--- OUTSIDE RECORDS SUMMARY | 2025-06-30 10:38 | XMS_ITS | Clinical Summary ---
Author Organization [facility] Address [address] [place] [address] Care Team Providers Care Reliability Manager Name Role Phone Danny Romero DO Primary Care Provider [phone] Allergies No known active allergies Medications Medication [...] age to complete this topic Care Teams Reliability Manager Relationship Specialty Start Date End Date Danny Romero DO [address] [place] [id number] PCP - General Internal Medicine 11/16/17
--- OUTSIDE RECORDS SUMMARY | 2025-06-30 10:38 | XMS_ITS | Encounter Summary ---
Author Organization [facility] Address [address] [place] [address] Care Team Providers Care Cooler Servicer Name Role Phone Gabriela Blandon OD Primary Care Provider [phone] Encounter Details Date Type Department Care Team (Latest Contact Info) Description 01/21/2021 Abstract [facility] CONVERSIONS Dental, Provider, DDS Social History Tobacco [...] Description 07/28/2025 3:30 PM EST Office Visit [facility] OPTOMETRY [address] [place] [id number] Gabriela Blandon OD [address] [place] [address] 10/01/2025 10:15 AM EST Office Visit [facility] ADULT DENTAL [address] [place] [address] Marbella, Marci [address] [place] [address] documented as of this encounter Visit Diagnoses Not on filedocumented in this encounter Care Teams Cooler Servicer Relationship Specialty Start Date End Date Gabriela Blandon OD [address] [place] [id number] PCP - General Optometry 09/18/19 09/16/23 documented as of this encounter
== END 2025-06-30 10:19 | disposition home or self-care (01) ==
LOC: HO.HUSH 09:29
PROVIDERS: PCP Internal Medicine; Visit Provider Nurse Practitioner Family
DX: R30.0 Dysuria (principal); N39.3 Stress incontinence (female) (male); Z13.9 Encounter for screening, unspecified
CPT/HCPCS: 99213

== ENCOUNTER → 2025-06-30 09:28 | Outpatient (BNVA) | payer OTHER, SELFPAY | PROVIDERS: PCP Internal Medicine; Visit Provider Nurse Practitioner Family | DX: R30.0 Dysuria (principal); N39.3 Stress incontinence (female) (male) | CPT/HCPCS: 81003; 99212 ==